=== PATIENT | male | born 1960 | race Caucasian/White ===

== ENCOUNTER 2016-11-26 04:02 | Emergency (ER) | payer OTHER ==
[2016-11-26] MEDS ORDERED: IPRATROPIUM-ALBUTEROL 3 ML NEB ONE (04:09)
[2016-11-26] MEDS ORDERED: KETOROLAC 30 MG/ML 1 ML VIAL ONE (04:09)
[2016-11-26] MEDS ORDERED: DIAZEPAM 5 MG/ML 2 ML SYRINGE ONE (04:09)
[2016-11-26] MEDS ORDERED: LIDOCAINE 5% PATCH TOPICAL ONE (04:09)
[2016-11-26 07:27] LABS: Basophils # (A) 0.1 k/uL (0-0.2); Basophils % (A) 0 %; CH 31.6; CHCM 33.4; Eosinophils # (A) 0.1 k/uL (0-0.7); Eosinophils % (A) 1 %; HCT 45.4 % (39.0-53.0); HDW 2.24; HGB 14.9 gm/dL (13.0-17.5); Luc # (Auto) 0.08; Luc % (Auto) 1; Lymphocytes # (A) 1.7 k/uL (1.0-4.8); Lymphocytes % (A) 10 %; MCH 31.3 pg (25.0-35.0); MCHC 32.9 g/dL (31.0-37.0); Mean Platelet Volume 6.3; Monocytes # (A) 0.7 k/uL (0-1.0); Monocytes % (A) 4 %; Neutrophils # (A) 14.7 k/uL (1.3-7.7); Neutrophils % (A) 84 %; RBC 4.78 m/uL (4.30-5.90); RDW 13.4 % (11.5-15.5); WBC 17.4 k/uL (3.8-10.6); WBC (Perox) 16.52
[2016-11-26 07:29] LABS: Partial Thromboplastin Time 23.5 sec (22.0-30.0); Prothrombin Time 10.2 sec (9.0-12.0)
[2016-11-26 07:35] LABS: ALT 35 U/L (21-72); AST 33 U/L (17-59); Alkaline Phosphatase 63 U/L (38-126); Anion Gap 15 mmol/L; Blood Urea Nitrogen 20 mg/dL (9-20); Calcium 9.5 mg/dL (8.4-10.2); Carbon Dioxide 19 mmol/L (22-30); Chloride 106 mmol/L (98-107); Creatine Kinase 129 U/L (55-170); Glucose 136 mg/dL (74-99); Non-African American GFR(MDRD) >60 (>60 ml/min/1.73 sqM); Potassium 4.4 mmol/L (3.5-5.1); Sodium 140 mmol/L (137-145); Total Bilirubin 1.2 mg/dL (0.2-1.3); Total Protein 7.2 g/dL (6.3-8.2); Troponin I <0.012 ng/mL (0.000-0.034)
[2016-11-26 07:37] LABS: Creatine Kinase MB 6.1 ng/mL (0.0-2.4)
--- NOTE | 2016-11-26 08:24 | XR ---
EXAMINATION TYPE: XR chest 1V portable DATE OF EXAM: 11/26/2016 8:02 AM COMPARISON: 08/19/2014 HISTORY: Right-sided pain TECHNIQUE: Single frontal view of the chest is obtained. FINDINGS: Bilateral subsegmental consolidation and cardiomegaly is seen. Hypertrophic change of the AC joints. Tiny pleural effusion suggested with no pneumothorax. IMPRESSION: 1. Bilateral lower lobe infiltrate and tiny effusion correlate for mild venous congestion.
== END 2016-11-26 06:45 | disposition home or self-care (01) ==
LOC: EC 04:02
DX: R07.89 Other chest pain (principal); R06.02 Shortness of breath; R00.0 Tachycardia, unspecified; R06.82 Tachypnea, not elsewhere classified; Z87.891 Personal history of nicotine dependence; Z88.0 Allergy status to penicillin; Z88.2 Allergy status to sulfonamides
CPT/HCPCS: 36415; 71010; 80053; 82550; 82553; 84484; 85025; 85610; 85730; 93005; 99285

== ENCOUNTER 2016-11-27 13:09 | Inpatient (IN) | payer OTHER ==
[2016-11-27] MEDS ORDERED: ALBUTEROL NEBULIZED 2.5 MG/3 ML INHALATION STA (13:26)
[2016-11-27] MEDS ORDERED: SODIUM CHLORIDE 0.9% 1,000 ML IV STA ×2 (13:26)
[2016-11-27] MEDS ORDERED: LEVOFLOXACIN 750MG-D5W PMX 750 MG in DEXTROSE/WATER 1 150ML.BAG IVPB STA (13:26)
[2016-11-27] MEDS ORDERED: IPRATROPIUM 0.5 MG/2.5 ML NEBU INHALATION STA (13:26)
--- NOTE | 2016-11-27 13:52 | ED ---
General Adult HPI - General Chief complaint: Shortness of Breath Stated complaint: Diff Breathing Time Seen by Provider: 11/27/16 13:26 Source: patient, family, RN notes reviewed, old records reviewed Mode of arrival: wheelchair Limitations: no limitations - History of Present Illness Initial comments: This is a 56-year-old male to the ER for evaluation of severe shortness of breath, severe weakness, severe fever. Severe chest pain. Patient had recent fall and since the fall is having increasing shortness of breath. Patient sounders elevated fever today. Increased cough and congestion. Patient states the chest pain has not changed is not taking anything for chest pain. No recent travel history no sick contacts, no recent hospitalizations. No modifying factors for symptoms. - Related Data Home Medications Medication Instructions Recorded Confirmed Ergocalciferol [Vitamin D2] 50,000 unit PO SA 02/21/16 11/27/16 Etodolac [Lodine] 400 mg PO TID 02/21/16 11/27/16 Hydrochlorothiazide [Hydrodiuril] 12.5 mg PO HS 02/21/16 11/27/16 Lisinopril [Zestril] 20 mg PO HS 02/21/16 11/27/16 Montelukast [Singulair] 10 mg PO HS 02/21/16 11/27/16 Previous Rx's Medication Instructions Recorded Metaxalone [Skelaxin] 800 mg PO TID PRN #20 tab 02/21/16 Allergies Allergy/AdvReac Type Severity Reaction Status Date / Time Penicillins Allergy Unknown Verified 11/27/16 13:39 Childhood Sulfa (Sulfonamide AdvReac Itching Verified 11/27/16 13:39 Antibiotics) Review of Systems ROS Statement: Those systems with pertinent positive or pertinent negative responses have been documented in the HPI. ROS Other: All systems not noted in ROS Statement are negative. Past Medical History Past Medical History: Heart Failure, GERD/Reflux, Hypertension Additional Past Medical History / Comment(s): ARTHRITIS, ALLERGIES History of Any Multi-Drug Resistant Organisms: MRSA MDRO Source:: FOOT Past Surgical History: Orthopedic Surgery Additional Past Surgical History / Comment(s): LEFT KNEE REPLACEMENT Past Psychological History: No Psychological Hx Reported Smoking Status: Never smoker Past Alcohol Use History: Daily Past Drug Use History: None Reported General Exam Limitations: no limitations General appearance: alert, in no apparent distress Head exam: Present: atraumatic, normocephalic, normal inspection Eye exam: Present: normal appearance, PERRL, EOMI. Absent: scleral icterus, conjunctival injection, periorbital swelling ENT exam: Present: normal exam, mucous membranes moist Neck exam: Present: normal inspection. Absent: tenderness, meningismus, lymphadenopathy Respiratory exam: Present: respiratory distress, wheezes, accessory muscle use, decreased breath sounds, prolonged expiratory. Absent: rales, rhonchi, stridor Cardiovascular Exam: Present: normal rhythm, tachycardia, normal heart sounds. Absent: systolic murmur, diastolic murmur, rubs, gallop, clicks GI/Abdominal exam: Present: soft, normal bowel sounds. Absent: distended, tenderness, guarding, rebound, rigid Extremities exam: Present: normal inspection, full ROM, normal capillary refill. Absent: tenderness, pedal edema, joint swelling, calf tenderness Back exam: Present: normal inspection Neurological exam: Present: alert, oriented X3, CN II-XII intact Psychiatric exam: Present: normal affect, normal mood Skin exam: Present: warm, dry, intact, normal color. Absent: rash Course Vital Signs 11/27/16 11/27/16 13:17 14:01 Temperature 100.9 F H Pulse Rate 105 H 107 H Respiratory 24 Rate Blood Pressure 165/84 O2 Sat by Pulse 87 L Oximetry - Reevaluation(s) Reevaluation #1: 11/27/16 14:17 Patient does have pain control as well as symptom control and fever control EKG Findings - EKG Comments: EKG Findings:: EKG shows sinus tachycardia rate of 112, OH 142, QRS 84, QTC 423 Medical Decision Making - Medical Decision Making 56 mallei free versus arthroscopic ingestion positive fever positive pneumonia. Patient will be admitted for IV antibiotics, IV hydration and breathing treatments [id number]. - Radiology Data Radiology results: report reviewed (Chest x-ray positive for pneumonia), image reviewed Critical Care Time Critical Care Time: Yes Total Critical Care Time: 31 Disposition Clinical Impression: Community acquired bacterial pneumonia, Sepsis Disposition: ADMITTED IP TO THIS [facility] Condition: Fair Referrals: Diamond Farrar DO [Primary Care Provider] - 1-2 days
[2016-11-27] MEDS ORDERED: PNEUMONIA PROTOCOL UTILIZED 1 EACH MISC PO PRN (14:14)
[2016-11-27] MEDS ORDERED: PIPERACILLIN-TAZOBACTAM 3.375 GM in DEXTROSE/WATER 1 50ML.BAG IVPB STA (14:14)
[2016-11-27] MEDS ORDERED: ACETAMINOPHEN IV (For NPO) 1,000 MG in EMPTY BAG 1 BAG IVPB STA (14:15)
[2016-11-27] MEDS: SODIUM CHLORIDE 0.9% 1,000 ML IV SCH (14:15)
[2016-11-27] MEDS ORDERED: IBUPROFEN 800 MG TAB PO STA (14:15)
[2016-11-27] MEDS ORDERED: KETOROLAC 30 MG/ML 1 ML VIAL IVP STA (14:15)
[2016-11-27] MEDS ORDERED: MORPHINE SULFATE 4 MG/ML SYRINGE IVP STA (14:15)
[2016-11-27] MEDS ORDERED: IBUPROFEN 600 MG TAB PO PRN (14:15)
[2016-11-27 14:26] LABS: CH 31.5; CHCM 33.8; HCT 43.5 % (39.0-53.0); HDW 2.27; HGB 14.8 gm/dL (13.0-17.5); MCH 31.9 pg (25.0-35.0); MCV 93.8 fL (80.0-100.0); Mean Platelet Volume 6.5; RBC 4.64 m/uL (4.30-5.90); RDW 13.2 % (11.5-15.5); WBC (Perox) 22.96
[2016-11-27 14:27] LABS: INR 1.2 (<1.1); Partial Thromboplastin Time 26.2 sec (22.0-30.0); Prothrombin Time 11.6 sec (9.0-12.0)
[2016-11-27 14:32] LABS: ALT 33 U/L (21-72); AST 19 U/L (17-59); Alkaline Phosphatase 75 U/L (38-126); Anion Gap 12 mmol/L; Blood Urea Nitrogen 26 mg/dL (9-20); Calcium 9.5 mg/dL (8.4-10.2); Carbon Dioxide 23 mmol/L (22-30); Chloride 103 mmol/L (98-107); Glucose 120 mg/dL (74-99); Magnesium 2.2 mg/dL (1.6-2.3); Non-African American GFR(MDRD) >60 (>60 ml/min/1.73 sqM); Potassium 4.3 mmol/L (3.5-5.1); Sodium 138 mmol/L (137-145); Total Bilirubin 1.2 mg/dL (0.2-1.3); Total Protein 6.9 g/dL (6.3-8.2)
[2016-11-27 14:38] LABS: WBC 25.8 k/uL (3.8-10.6)
[2016-11-27 14:43] LABS: Creatine Kinase 96 U/L (55-170)
[2016-11-27 14:55] LABS: Troponin I <0.012 ng/mL (0.000-0.034)
[2016-11-27 14:59] LABS: Add Differential Manual Differential
[2016-11-27 15:01] LABS: Nucleated Red Blood Cells 0 /100 WBC (0-0); Total Cells Counted 100
[2016-11-27 15:02] LABS: RBC Morphology Normal
--- NOTE | 2016-11-27 15:30 | XR ---
EXAMINATION TYPE: XR chest 1V DATE OF EXAM: 11/27/2016 3:26 PM COMPARISON: NONE HISTORY: Pain TECHNIQUE: Single frontal view of the chest is obtained. FINDINGS: Bilateral subsegmental consolidation and cardiomegaly is seen. Hypertrophic change of the AC joints. Tiny pleural effusion suggested with no pneumothorax. IMPRESSION: Bilateral lower lobe infiltrate and tiny effusion correlate for mild venous congestion. Progressive changes involving the right lower lobe.
[2016-11-27] MEDS: IPRATROPIUM-ALBUTEROL 3 ML NEB INHALATION SCH ×2 (16:23→19:26)
[2016-11-27] MEDS ORDERED: FUROSEMIDE 10 MG/ML 4 ML VIAL IV STA (19:45)
--- NOTE | 2016-11-27 20:06 | XR ---
EXAMINATION TYPE: XR chest 1V portable DATE OF EXAM: 11/27/2016 7:56 PM HISTORY: Shortness of breath. COMPARISON: 11/27/2016 TECHNIQUE: Single view of the chest is submitted. FINDINGS: Demonstrated are scattered senescent parenchymal change. Stable basilar infiltrates right greater than left without significant change. The heart is stable. Hilar and mediastinal structures are within normal limits. Degenerative changes are seen of the dorsal spine. IMPRESSION: 1. Stable chest.
[2016-11-27 20:25] LABS: Glucose,Whole Blood 111 mg/dL (75-99)
[2016-11-27 20:30] LABS: Ionized Calcium 4.9 mg/dL (4.5-5.3)
[2016-11-27 20:33] LABS: Basophils # (A) 0.1 k/uL (0-0.2); Basophils % (A) 0 %; CH 31.3; Eosinophils # (A) 0.1 k/uL (0-0.7); Eosinophils % (A) 1 %; HCT 43.8 % (39.0-53.0); HDW 2.25; Luc # (Auto) 0.15; Luc % (Auto) 1; Lymphocytes # (A) 1.3 k/uL (1.0-4.8); Lymphocytes % (A) 5 %; MCH 32.6 pg (25.0-35.0); MCHC 34.2 g/dL (31.0-37.0); MCV 95.2 fL (80.0-100.0); Mean Platelet Volume 6.8; Monocytes # (A) 1.1 k/uL (0-1.0); Monocytes % (A) 4 %; Neutrophils # (A) 21.7 k/uL (1.3-7.7); Neutrophils % (A) 89 %; RDW 13.3 % (11.5-15.5); WBC 24.4 k/uL (3.8-10.6); WBC (Perox) 25.67
[2016-11-27 20:38] LABS: ALT 27 U/L (21-72); AST 22 U/L (17-59); Alkaline Phosphatase 67 U/L (38-126); Amylase 35 U/L (30-110); Anion Gap 11 mmol/L; Blood Urea Nitrogen 28 mg/dL (9-20); Carbon Dioxide 22 mmol/L (22-30); Chloride 103 mmol/L (98-107); Glucose 112 mg/dL (74-99); Magnesium 2.3 mg/dL (1.6-2.3); Non-African American GFR(MDRD) >60 (>60 ml/min/1.73 sqM); Phosphorous 3.4 mg/dL (2.5-4.5); Sodium 136 mmol/L (137-145); Total Protein 6.7 g/dL (6.3-8.2)
[2016-11-27 20:46] LABS: INR 1.1 (<1.1); Partial Thromboplastin Time 28.9 sec (22.0-30.0); Prothrombin Time 11.4 sec (9.0-12.0)
[2016-11-27 21:00] LABS: Troponin I <0.012 ng/mL (0.000-0.034)
[2016-11-27 21:02] LABS: Creatine Kinase MB 5.9 ng/mL (0.0-2.4)
[2016-11-27 23:51] LABS: Appearance,Urine Clear (Clear); Bilirubin,Urine 1+ (Negative); Glucose,Urine (UA) Negative (Negative); Ketones,Urine Negative (Negative); Leukocyte Esterase,Urine Negative (Negative); Nitrite,Urine Negative (Negative); PH, Urine 5.5 (5.0-8.0); Protein,Urine Negative (Negative); Specific Gravity,Urine 1.016 (1.001-1.035); UA Billing (MACRO vs. MICRO) CHEM; Urobilinogen,Urine <2.0 mg/dL (<2.0)
[2016-11-28] MEDS ORDERED: NALOXONE 0.4 MG/ML 1 ML VIAL IV PRN (00:55)
[2016-11-28] MEDS: MORPHINE SULFATE 4 MG/ML SYRINGE IVP PRN ×3 (01:15→09:27)
[2016-11-28] MEDS: PIPERACILLIN-TAZOBACTAM 3.375 GM in DEXTROSE/WATER 1 50ML.BAG IVPB SCH ×3 (02:57→16:44)
[2016-11-28 05:50] LABS: Basophils % (A) 0 %; CH 31.4; CHCM 31.8; Eosinophils # (A) 0.1 k/uL (0-0.7); Eosinophils % (A) 1 %; HCT 43.4 % (39.0-53.0); HDW 2.11; HGB 14.2 gm/dL (13.0-17.5); Luc # (Auto) 0.16; Luc % (Auto) 1; Lymphocytes # (A) 1.3 k/uL (1.0-4.8); Lymphocytes % (A) 6 %; MCH 32.5 pg (25.0-35.0); MCHC 32.8 g/dL (31.0-37.0); MCV 99.2 fL (80.0-100.0); Mean Platelet Volume 6.5; Monocytes # (A) 0.9 k/uL (0-1.0); Monocytes % (A) 4 %; Neutrophils # (A) 19.6 k/uL (1.3-7.7); Neutrophils % (A) 89 %; RBC 4.38 m/uL (4.30-5.90); RDW 13.6 % (11.5-15.5); WBC (Perox) 22.32
[2016-11-28 06:05] LABS: ABG HCO3 23 mmol/L (21-25); ABG PCO2 40 mmHg (35-45); ABG PH 7.38 (7.35-7.45); ABG PO2 84 mmHg (83-108)
[2016-11-28 06:06] LABS: ABG Base Excess -1.4 mmol/L; ABG TCO2 24 mmol/L (19-24)
[2016-11-28 06:08] LABS: Anion Gap 8 mmol/L; Blood Urea Nitrogen 23 mg/dL (9-20); Calcium 8.9 mg/dL (8.4-10.2); Carbon Dioxide 28 mmol/L (22-30); Chloride 100 mmol/L (98-107); Glucose 109 mg/dL (74-99); Magnesium 2.4 mg/dL (1.6-2.3); Non-African American GFR(MDRD) >60 (>60 ml/min/1.73 sqM); Phosphorous 3.1 mg/dL (2.5-4.5); Potassium 4.5 mmol/L (3.5-5.1); Sodium 136 mmol/L (137-145)
[2016-11-28] MEDS: IPRATROPIUM-ALBUTEROL 3 ML NEB INHALATION SCH ×4 (07:26→20:01)
--- NOTE | 2016-11-28 08:03 | XR ---
EXAMINATION TYPE: XR chest 1V DATE OF EXAM: 11/28/2016 5:55 AM COMPARISON: 11/27/2016 and 11/26/2016 HISTORY: 56-year-old male pneumonia TECHNIQUE: Single frontal view of the chest is obtained. FINDINGS: Right heart margin obscured by adjacent pleural parenchymal disease. Patient slightly more lordotic i n positioning. This may account for the increased density in the right paratracheal region. However, there is also increasing right basilar opacity now extending up to the midlung level and continued pa tchy left basilar opacity. IMPRESSION: 1. Lordotic positioning may account for the increased density in the right paratracheal region. If wo rsening chest pain, contrast-enhanced CT may be warranted to exclude acute vascular pathology. 2. Worsening consolidation and pleural effusion on the right with density now extending up to the mid lung level. Continued mild patchy infiltrate at the left base. Findings given to nurse Raza in 6 ICU at 7:50 AM.
[2016-11-28] MEDS: ACETAMINOPHEN TAB 500 MG TAB PO PRN (08:57)
[2016-11-28] MEDS: HYDROCHLOROTHIAZIDE 12.5 MG CAP PO SCH (09:00)
[2016-11-28] MEDS: LISINOPRIL 20 MG TAB PO SCH (09:00)
[2016-11-28] MEDS: PANTOPRAZOLE 40 MG/10 ML VIAL IV SCH (09:01)
[2016-11-28] MEDS: ENOXAPARIN 40 MG/0.4 ML SYRINGE SQ SCH (09:01)
[2016-11-28] MEDS ORDERED: IV VANCOMYCIN PER PHARMACY 1 EACH MISC MISCELLANE PRN (09:30)
[2016-11-28] MEDS ORDERED: RX INFO: IV CONTRAST WAS GIVEN 1 EACH MISC MISCELLANE PRN (09:31)
--- NOTE | 2016-11-28 09:33 | P.CNPUL ---
History of Present Illness Consult date: 11/28/16 Reason for consult: pneumonia History of present illness: 56-year-old obese male patient, who got moved to the intensive care unit yesterday because of worsening shortness of breath and bilateral pneumonia. This patient was in a good state of health until approximately 10 days ago when he developed symptoms of acute bronchitis. He contacted his primary care physician, Dr. Farrar, we'll give this patient a Z-Avery and a Medrol Dosepak. The patient also has albuterol solution for nebulizer as his has bronchial asthma. He did some albuterol treatment and he felt better. He completed his antibiotic course 6 days ago. Around 3 days ago he started developing severe acute pleuritic right-sided chest pain. The pain was severe to the point where the patient was unable to breathe 10. He felt hot and cold and there was no documented temperature. He became progressively short of breath and for that reason he was brought into the hospital. I reviewed a series of chest x-rays that were done since admission. There is obvious progression to the point where the patient has developed severe consolidation of the right lower lobe in addition to some infiltration of the left lower lobe and possibly a pleural effusion on the right is suspected. Empyema cannot be completely ruled out. The lung volumes are small. The patient has no hemoptysis. He is coughing out minimal amount of sputum. His white cell count is elevated. Overnight he was placed on a BiPAP at a pressure of 10 over 5 and currently is on 100% nonrebreather facemask with an oxygen saturation of 95%. He has no change in mental status. No previous pneumonias. He has remote history of MRSA infection in his right foot which got treated. No aspiration. No travel history. No smoking. No 70 chronic lung disease. He has features of obstructive sleep apnea however this has not been demonstrated or studies further. He is currently on a combination of Zosyn and Levaquin. Review of Systems All systems: negative Constitutional: Denies chills, Denies fever Eyes: denies blurred vision, denies pain Ears, nose, mouth and throat: Denies headache, Denies sore throat Cardiovascular: Reports chest pain, Reports dyspnea on exertion, Denies shortness of breath Respiratory: Reports cough, Reports dyspnea, Reports pleurisy Gastrointestinal: Denies abdominal pain, Denies diarrhea, Denies nausea, Denies vomiting Musculoskeletal: Denies myalgias Integumentary: Denies pruritus, Denies rash Neurological: Denies numbness, Denies weakness Psychiatric: Denies anxiety, Denies depression Endocrine: Denies fatigue, Denies weight change Past Medical History Past Medical History: GERD/Reflux, Hypertension Additional Past Medical History / Comment(s): Morbid obesity, environmental ALLERGIES, degenerative arthritis, hypertension History of Any Multi-Drug Resistant Organisms: MRSA Date of last positivie culture/infection: 2013(when at [facility] [place] [facility]) MDRO Source:: rt foot 2nd toe Past Surgical History: Orthopedic Surgery, Tonsillectomy Additional Past Surgical History / Comment(s): LEFT KNEE REPLACEMENT, lt eye cataract sx, rt shoulder sx d/t separation Past Anesthesia/Blood Transfusion Reactions: No Reported Reaction Past Psychological History: No Psychological Hx Reported Smoking Status: Never smoker Past Alcohol Use History: Daily Additional Past Alcohol Use History / Comment(s): pt stated usually drinks 4 beer a day but for last 2 weeks since tx for bronchitis less than that Past Drug Use History: Marijuana Additional Drug Use History / Comment(s): pt smoked marijuana in his 20's - Past Family History Mother Family Medical History: Hypertension Father Family Medical History: Cancer, Diabetes Mellitus, Myocardial Infarction ([place]) Additional Family Medical History / Comment(s): stomach cancer, x4 mi's Medications and Allergies Home Medications Medication Instructions Recorded Confirmed Type Ergocalciferol [Vitamin D2] 50,000 unit PO SA 02/21/16 11/27/16 History Etodolac [Lodine] 400 mg PO TID 02/21/16 11/27/16 History Hydrochlorothiazide [Hydrodiuril] 12.5 mg PO HS 02/21/16 11/27/16 History Lisinopril [Zestril] 20 mg PO HS 02/21/16 11/27/16 History Montelukast [Singulair] 10 mg PO HS 02/21/16 11/27/16 History Allergies Allergy/AdvReac Type Severity Reaction Status Date / Time Penicillins Allergy Unknown Verified 11/27/16 13:39 Childhood Sulfa (Sulfonamide AdvReac Itching Verified 11/27/16 13:39 Antibiotics) Physical Exam Vitals: Vital Signs Temp Pulse Pulse Resp BP BP Pulse Ox 11/28/16 08:00 98.7 F 107 H 28 H 162/88 95 11/28/16 07:31 94 L 11/28/16 07:00 97 26 H 120/70 96 11/28/16 06:00 120 H 47 H 189/92 97 11/28/16 05:00 76 27 H 133/74 97 11/28/16 04:00 99 F 70 103 H 27 H 134/79 99 11/28/16 03:00 76 24 126/75 98 11/28/16 02:00 79 26 H 126/72 98 11/28/16 01:00 81 31 H 124/74 99 11/28/16 00:00 98 F 75 103 H 26 H 120/65 99 11/27/16 23:00 78 26 H 141/81 97 11/27/16 22:30 91 39 H 141/81 99 11/27/16 21:30 101 H 43 H 125/77 11/27/16 21:20 103 H 44 H 140/83 11/27/16 21:10 103 H 42 H 140/83 11/27/16 21:00 96 37 H 140/83 99 11/27/16 20:50 96 37 H 99/59 98 11/27/16 20:40 90 25 H 116/75 99 11/27/16 20:30 99 40 H 116/75 98 11/27/16 20:20 98.5 F 97 41 H 144/88 98 11/27/16 19:56 103 H 26 H 129/79 96 11/27/16 19:40 114 H 101 H 40 H 181/91 95 11/27/16 19:26 114 H 11/27/16 19:25 97.9 F 88 32 H 151/76 93 L 11/27/16 16:08 98.3 F 98 18 112/58 91 L 11/27/16 15:04 101.9 F H 112 H 20 120/59 90 L 11/27/16 14:40 115 H 11/27/16 14:15 112 H 11/27/16 14:01 107 H 11/27/16 13:17 100.9 F H 105 H 24 165/84 87 L Intake and Output 11/27/16 11/28/16 11/28/16 22:59 06:59 14:59 Intake Total 60 160 40 Output Total 600 845 120 Balance -883 -486 -80 Intake: IV 60 160 40 Sodium Chloride 0.9% 1, 60 160 40 000 ml @ 20 mls/hr IV . Q24H [facility] Rx#:[id number] Output: Urine 600 845 120 Other: Voiding Method Urinal Indwelling Catheter Weight 170.7 kg Patient Weight 11/29/16 06:59 Weight 170.7 kg Morbid obesity, and mild degree of respiratory distress, not using accessory muscles of breathing.Head exam was generally normal. There was no scleral icterus or corneal arcus. Mucous membranes were moist.Neck was supple and without jugular venous distension, thyromegaly, or carotid bruits. Carotids were easily palpable bilaterally. There was no adenopathy. There is significant crowding of the posterior oropharynx with a Mallampati class IV. Lung sounds are markedly diminished in lung bases bilaterally especially in the right lung base and the patient has limited ability to breathe due to his severe pleuritic chest pain. No wheezes.Cardiac exam revealed the PMI to be normally situated and sized. The rhythm was regular and no extrasystoles were noted during several minutes of auscultation. The first and second heart sounds were normal and physiologic splitting of the second heart sound was noted. There were no murmurs, rubs, clicks, or gallops.Abdominal exam revealed normal bowel sounds. The abdomen was soft, non-tender, and without masses, organomegaly , or appreciable enlargement of the abdominal aorta.Examination of the extremities revealed easily palpable radial, femoral and pedal pulses. There was no cyanosis, clubbing or edema. Results - Laboratory Findings CBC and BMP: 11/28/16 05:08 11/28/16 05:08 ABG ABG pH 7.38 (7.35-7.45) 11/28/16 05:59 ABG pCO2 40 mmHg (35-45) 11/28/16 05:59 ABG pO2 84 mmHg (83-108) 11/28/16 05:59 ABG O2 Saturation 96.0 % (94-97) 11/28/16 05:59 PT/INR, D-dimer PT 11.4 sec (9.0-12.0) 11/27/16 20:18 INR 1.1 (<1.1) 11/27/16 20:18 D-Dimer 0.80 mg/L FEU (<0.60) H 11/27/16 20:18 Abnormal lab findings: Abnormal Labs 11/27/16 11/27/16 11/27/16 14:06 14:06 14:06 WBC 25.8 H* Neutrophils # Neutrophils # (Manual) 23.2 H Monocytes # D-Dimer Sodium BUN 26 H Glucose 120 H POC Glucose (mg/dL) Magnesium CK-MB (CK-2) 7.0 H* Urine Bilirubin 11/27/16 11/27/16 11/27/16 20:04 20:18 20:18 WBC 24.4 H Neutrophils # 21.7 H Neutrophils # (Manual) Monocytes # 1.1 H D-Dimer 0.80 H Sodium BUN Glucose POC Glucose (mg/dL) 111 H Magnesium CK-MB (CK-2) Urine Bilirubin 11/27/16 11/27/16 11/27/16 20:18 20:18 23:00 WBC Neutrophils # Neutrophils # (Manual) Monocytes # D-Dimer Sodium 136 L BUN 28 H Glucose 112 H POC Glucose (mg/dL) Magnesium CK-MB (CK-2) 5.9 H* Urine Bilirubin 1+ H 11/28/16 11/28/16 05:08 05:08 WBC 22.0 H Neutrophils # 19.6 H Neutrophils # (Manual) Monocytes # D-Dimer Sodium 136 L BUN 23 H Glucose 109 H POC Glucose (mg/dL) Magnesium 2.4 H CK-MB (CK-2) Urine Bilirubin - Diagnostic Findings Chest x-ray: image reviewed Assessment and Plan Plan: Assessment 1 acute bilateral pneumonia with interval progression and worsening in the consolidation of the right lower lobe with possibly development of a right lower lobe pleural effusion and there is a high concern for an underlying empyema of the right lung. Pulmonary embolism/pulmonary infarction is felt to be less likely 2 acute pleuritic right-sided chest pain secondary to above 3 acute hypoxic respiratory failure currently on 100% nonrebreather facemask 4 acute BiPAP dependent respiratory failure, and the patient was taken off the BiPAP this morning 5 leukocytosis 6 morbid obesity 7 hypertension 8 degenerative arthritis 9 bronchitis that was treated approximately a week ago on outpatient basis with a combination of Zithromax and prednisone burst taper Plan Keep the patient intensive care unit. Keep the 100% nonrebreather facemask. Proceed with a CT of the chest to assess for any complicated right-sided pleural effusion/empyema. At the same time we'll look at the patient's vasculature and rule out pulmonary embolism. Continue Zosyn and Levaquin and add vancomycin. Sputum Gram stain and culture. Increase his IV fluids to 100 mL an hour of normal saline. Use Dilaudid 1 mg every 3 hours for pain control. Provide the patient incentive spirometer. Heparin subcu for DVT prophylaxis. Blood cultures. Legionella urine antigen. We'll continue to follow make further recommendations based on his progress. His condition is critical at this point. Time with Patient: Greater than 30
[2016-11-28] MEDS ORDERED: VANCOMYCIN 2,500 MG in SODIUM CHLORIDE 0.9% 500 ML IVPB ONE (10:00)
--- NOTE | 2016-11-28 11:38 | CT ---
EXAMINATION TYPE: CT chest angio for PE DATE OF EXAM: 11/28/2016 11:20 AM COMPARISON: Chest x-ray earlier today. HISTORY: Short of breath, right lung pneumonia/empyema CT DLP: 1241.3 mGycm. Automated Exposure Control for Dose Reduction was Utilized. CONTRAST: CTA scan of the thorax is performed with IV Contrast, patient injected with 100 mL of Omnipaque 350, pulmonary embolism protocol. MIP Images are created on CT scanner and reviewed. FINDINGS: LUNGS: There is moderate right-sided pleural fluid collection which does not completely layer, and up per lung medial component near axial image 41 measuring 5.5 x 3.1 cm is noted. Hounsfield units avera ge near 15. There is compressive atelectasis in the right lower lobe and mid lung. Exam is suboptimal as is degraded by rest type motion artifact. There is some linear atelectasis in the left lung base otherwise left lung is essentially clear. No pneumothorax is seen bilaterally. MEDIASTINUM: There is markedly suboptimal bolus with most dense contrast in the SVC and fairly equal poor contrast and right and left heart systems. There is no large saddle pulmonary embolism, smaller lobar as well as segmental and subsegmental PE cannot be entirely excluded on this exam as there is diffuse heterogeneity present. There are no greater than 1 cm hilar or mediastinal lymph nodes. No pericardial effusion is seen. Heart size is upper limits of normal. There is tortuous course to the e sophagus with small hiatal hernia. OTHER: Multilevel spurring in the spine is present. IMPRESSION: 1. Suboptimal study, no large saddle central pulmonary embolism, smaller PE cannot be excluded on thi s exam. 2. Fairly moderate size nonsimple right-sided pleural fusion or fluid collection. There is right lowe r lung atelectasis and/or consolidation. Accounting for abnormal right paratracheal density is locula miguel or nonsimple right-sided pleural fluid.
[2016-11-28] MEDS: SODIUM CHLORIDE 0.9% 1,000 ML IV SCH ×3 (11:40→15:50)
[2016-11-28 12:11] LABS: Glucose,Whole Blood 126 mg/dL (75-99)
[2016-11-28] MEDS: INSULIN LISPRO (humaLOG) 300 UNIT/3 ML VIAL SQ SCH ×2 (12:11→17:03)
--- NOTE | 2016-11-28 12:12 | P.HPIM ---
History of Present Illness H&P Date: 11/28/16 Chief Complaint: Shortness of breath right-sided chest pain This is a 56-year-old male, patient of [facility]. He has a known past medical history of hypertension, GERD and morbid obesity. Patient was treated about a week ago for bronchitis as an outpatient he received Z-Avery and prednisone. He reports some improvement in his cough and shortness of breath. However, his symptoms then began to worsen. He used his 's nebulizer machine without really any improvement. He tried to go back to work incontinent because of the shortness of breath and cough. Then yesterday after grocery shopping and lifting up the garage door to bring groceries and he started having significant right sided chest and rib pain. Patient reports no injury to the chest wall. He denies hurting himself while lifting the grudge door. He has been feverish with a temp of 101.9 tachycardic with a heart rate of 118 and white count was 24.4 on admission. He was admitted to the ICU for pneumonia with sepsis. Chest x-ray shows an increased density in the right paratracheal region and worsening consolidation and pleural effusion on the right with density now extending up the midlung level. Continued mild patchy infiltrate at the left base. Pulmonary service has been consulted and they ordered a CTA of the chest for concerns of pneumonia and empyema. CT of the chest shows no large saddle central pulmonary embolism but small EEG cannot be excluded on this exam. Shows a fairly moderate size non-simple right-sided pleural effusion or fluid collection. There is a right lower lung atelectasis and/or consolidation. Accounting for abnormal right paratracheal density is loculated or non-simple right-sided pleural fluid. Vascular surgery has been consulted as well as infectious disease. Patient was placed on IV antibiotics Levaquin, Zosyn and vancomycin. Patient denies any nausea or vomiting. He denies any urinary symptoms. Last bowel movement was about 3 days ago. He denies any abdominal pain. Reports that his appetite has been decreased. Review of Systems Please refer to HPI otherwise unremarkable Past Medical History Past Medical History: GERD/Reflux, Hypertension Additional Past Medical History / Comment(s): Morbid obesity, environmental ALLERGIES, degenerative arthritis, hypertension History of Any Multi-Drug Resistant Organisms: MRSA Date of last positivie culture/infection: 2013(when at [facility] pt) MDRO Source:: rt foot 2nd toe Past Surgical History: Orthopedic Surgery, Tonsillectomy Additional Past Surgical History / Comment(s): LEFT KNEE REPLACEMENT, lt eye cataract sx, rt shoulder sx d/t separation Past Anesthesia/Blood Transfusion Reactions: No Reported Reaction Past Psychological History: No Psychological Hx Reported Smoking Status: Never smoker Past Alcohol Use History: Daily Additional Past Alcohol Use History / Comment(s): pt stated usually drinks 4 beer a day but for last 2 weeks since tx for bronchitis less than that Past Drug Use History: Marijuana Additional Drug Use History / Comment(s): pt smoked marijuana in his 20's - Past Family History Mother Family Medical History: Hypertension Father Family Medical History: Cancer, Diabetes Mellitus, Myocardial Infarction ([place]) Additional Family Medical History / Comment(s): stomach cancer, x4 mi's Medications and Allergies Home Medications Medication Instructions Recorded Confirmed Type Ergocalciferol [Vitamin D2] 50,000 unit PO SA 02/21/16 11/27/16 History Etodolac [Lodine] 400 mg PO TID 02/21/16 11/27/16 History Hydrochlorothiazide [Hydrodiuril] 12.5 mg PO HS 02/21/16 11/27/16 History Lisinopril [Zestril] 20 mg PO HS 02/21/16 11/27/16 History Montelukast [Singulair] 10 mg PO HS 02/21/16 11/27/16 History Allergies Allergy/AdvReac Type Severity Reaction Status Date / Time Penicillins Allergy Unknown Verified 11/27/16 13:39 Childhood Sulfa (Sulfonamide AdvReac Itching Verified 11/27/16 13:39 Antibiotics) Physical Exam Vitals: Vital Signs Temp Pulse Pulse Resp BP BP Pulse Ox 11/28/16 11:00 98 24 115/59 96 11/28/16 10:00 97 24 137/74 96 11/28/16 09:00 98 24 147/72 96 11/28/16 08:00 98.7 F 107 H 28 H 162/88 95 11/28/16 07:31 94 L 11/28/16 07:00 97 26 H 120/70 96 11/28/16 06:00 120 H 47 H 189/92 97 11/28/16 05:00 76 27 H 133/74 97 11/28/16 04:00 99 F 70 103 H 27 H 134/79 99 11/28/16 03:00 76 24 126/75 98 11/28/16 02:00 79 26 H 126/72 98 11/28/16 01:00 81 31 H 124/74 99 11/28/16 00:00 98 F 75 103 H 26 H 120/65 99 11/27/16 23:00 78 26 H 141/81 97 11/27/16 22:30 91 39 H 141/81 99 11/27/16 21:30 101 H 43 H 125/77 11/27/16 21:20 103 H 44 H 140/83 11/27/16 21:10 103 H 42 H 140/83 11/27/16 21:00 96 37 H 140/83 99 11/27/16 20:50 96 37 H 99/59 98 11/27/16 20:40 90 25 H 116/75 99 11/27/16 20:30 99 40 H 116/75 98 11/27/16 20:20 98.5 F 97 41 H 144/88 98 11/27/16 19:56 103 H 26 H 129/79 96 11/27/16 19:40 114 H 101 H 40 H 181/91 95 11/27/16 19:26 114 H 11/27/16 19:25 97.9 F 88 32 H 151/76 93 L 11/27/16 16:08 98.3 F 98 18 112/58 91 L 11/27/16 15:04 101.9 F H 112 H 20 120/59 90 L 11/27/16 14:40 115 H 11/27/16 14:15 112 H 11/27/16 14:01 107 H 11/27/16 13:17 100.9 F H 105 H 24 165/84 87 L Intake and Output 11/27/16 11/28/16 11/28/16 22:59 06:59 14:59 Intake Total 60 160 877.5 Output Total 600 845 270 Balance -540 -685 607.5 Intake: IV 60 160 340 Sodium Chloride 0.9% 1, 60 160 340 000 ml @ 100 mls/hr IV . Q10H [facility] Rx#:[id number] Intake, IV Titration 537.5 Amount Piperacillin-Tazobactam 3 37.5 .375 gm In Dextrose/Water 1 50ml.bag @ 12.5 mls/hr IVPB Q8HR [facility] Rx#: [id number] Vancomycin 2,250 mg In 500 Sodium Chloride 0.9% 500 ml @ 167 mls/hr IVPB Q12HR [facility] Rx#:[id number] Output: Urine 600 845 270 Other: Voiding Method Urinal Indwelling Catheter Weight 170.7 kg Patient Weight 11/29/16 06:59 Weight 170.7 kg Head normocephalic Neck supple Lungs diminished bilaterally no wheezing or crackles. Currently has nonrebreather mask. Short of breath with talking. Chest wall tenderness on the right side with palpation Heart regular rate and rhythm S1-S2, no rub or gallop Abdomen is soft nontender nondistended positive bowel sounds no hepatosplenomegaly Extremities no edema Neuro alert and orientated to 3 Results CBC & Chem 7: 11/28/16 05:08 11/28/16 05:08 Labs: Abnormal Lab Results - Last 24 Hours (Table) 11/27/16 11/27/16 11/27/16 Range/Units 14:06 14:06 14:06 WBC 25.8 H* (3.8-10.6) k/uL Neutrophils # (1.3-7.7) k/uL Neutrophils # (Manual) 23.2 H (1.3-7.7) k/uL Monocytes # (0-1.0) k/uL D-Dimer (<0.60) mg/L FEU Sodium (137-145) mmol/L BUN 26 H (9-20) mg/dL Glucose 120 H (74-99) mg/dL POC Glucose (mg/dL) (75-99) mg/dL Magnesium (1.6-2.3) mg/dL CK-MB (CK-2) 7.0 H* (0.0-2.4) ng/mL Urine Bilirubin (Negative) 11/27/16 11/27/16 11/27/16 Range/Units 20:04 20:18 20:18 WBC 24.4 H (3.8-10.6) k/uL Neutrophils # 21.7 H (1.3-7.7) k/uL Neutrophils # (Manual) (1.3-7.7) k/uL Monocytes # 1.1 H (0-1.0) k/uL D-Dimer 0.80 H (<0.60) mg/L FEU Sodium (137-145) mmol/L BUN (9-20) mg/dL Glucose (74-99) mg/dL POC Glucose (mg/dL) 111 H (75-99) mg/dL Magnesium (1.6-2.3) mg/dL CK-MB (CK-2) (0.0-2.4) ng/mL Urine Bilirubin (Negative) 11/27/16 11/27/16 11/27/16 Range/Units 20:18 20:18 23:00 WBC (3.8-10.6) k/uL Neutrophils # (1.3-7.7) k/uL Neutrophils # (Manual) (1.3-7.7) k/uL Monocytes # (0-1.0) k/uL D-Dimer (<0.60) mg/L FEU Sodium 136 L (137-145) mmol/L BUN 28 H (9-20) mg/dL Glucose 112 H (74-99) mg/dL POC Glucose (mg/dL) (75-99) mg/dL Magnesium (1.6-2.3) mg/dL CK-MB (CK-2) 5.9 H* (0.0-2.4) ng/mL Urine Bilirubin 1+ H (Negative) 11/28/16 11/28/16 Range/Units 05:08 05:08 WBC 22.0 H (3.8-10.6) k/uL Neutrophils # 19.6 H (1.3-7.7) k/uL Neutrophils # (Manual) (1.3-7.7) k/uL Monocytes # (0-1.0) k/uL D-Dimer (<0.60) mg/L FEU Sodium 136 L (137-145) mmol/L BUN 23 H (9-20) mg/dL Glucose 109 H (74-99) mg/dL POC Glucose (mg/dL) (75-99) mg/dL Magnesium 2.4 H (1.6-2.3) mg/dL CK-MB (CK-2) (0.0-2.4) ng/mL Urine Bilirubin (Negative) Thrombosis Risk Factor Assmnt - Choose All That Apply Any of the Below Risk Factors Present?: Yes Each Factor Represents 1 point: Age 41-60 years, Obesity (BMI >25), Sepsis (< 1month), Serious lung disease incl. pneumonia (< 1month) Other Risk Factors: No Other congenital or acquired thrombophilia - If yes, enter type in comment: No Thrombosis Risk Factor Assessment Total Risk Factor Score: 4 Thrombosis Risk Factor Assessment Level: Moderate Risk Assessment and Plan Plan: 1. Acute bilateral pneumonia: Chest x-ray from this morning shows worsening consolidation and pleural effusion. Case was discussed with pulmonary service. There are concerns about a possible empyema. Computed tomography scan shows no large saddle central PE. Does show a fairly moderate size non-simple right- sided pleural effusion or fluid collection. With a right lower lung atelectasis or consolidation. And right paratracheal density is loculated or non-simple right-sided pleural effusion fluid. Both vascular surgery and infectious disease have been consulted. Blood cultures have been ordered. Continue with antibiotics including Levaquin and Zosyn and vancomycin 2. Pneumonia with sepsis: Patient was tachycardic, leukocytosis, and febrile on admission. Continue with antibiotics and IV fluids 3. Acute pleuritic right-sided chest pain likely related to the pneumonia. Continue current pain medication 4. Acute hypoxic respiratory failure secondary to pneumonia or possible empyema. Continue to monitor patient did require BiPAP in the morning. Currently on a nonrebreather 5. Morbid obesity 6. Essential hypertension with pressures are stable 7. Degenerative disc disease 8. Bronchitis that was treated about a week ago with Z-Avery and prednisone taper DVT prophylaxis Lovenox and GI prophylaxis Protonix Time with Patient: Greater than 30 (Greater than 50% of the total time spent in counseling and coordination of care.I performed an examination of the patient and discussed their management with the physician Telecommunication Tower Technician. I have reviewed the Physician Telecommunication Tower Technician's notes and agree with the documented findings and plan of care)
[2016-11-28] MEDS: methylPREDNISolone SOD SUCCI 125 MG/2 ML VIAL IV SCH ×2 (12:41→17:05)
[2016-11-28 13:30] LABS: Hemoglobin A1C 5.9 % (4.2-6.1)
[2016-11-28] MEDS: HYDROmorphone 1 MG/ML 1 ML SYRINGE IVP PRN ×2 (14:07→20:22)
--- NOTE | 2016-11-28 14:45 | P.GSCN ---
<Alma Tinoco - Last Filed: 11/28/16 14:45> History of Present Illness Consult date: 11/28/16 Reason for Consult: Loculated fluid in the right lung. Requesting physician: Neri Moscoso History of present illness: This 56-year-old obese patient with a history of hypertension, GERD, arthritis, and daily EtOH use presented to the emergency room with shortness of breath, weakness, subjective fever, and severe right-sided chest pain. Apparently he had symptoms suggestive of bronchitis per his primary care physician 10 days ago and was prescribed a Z-Avery and steroids. After finishing his antibiotics and steroids, he developed severe right-sided pleuritic chest pain as well as increased shortness of breath. He presented to the emergency room and was diagnosed as having community-acquired pneumonia. He was started on Zosyn and Levaquin. He has had serial EKGs as well as a CTA of the chest which has demonstrated an increasing right pleural effusion. His respiratory status became severe enough that he required BiPAP and was transferred to the ICU. Cardiothoracic surgery was consulted by Dr. Moscoso for possible surgical intervention related to the patient's pleural effusion. Review of Systems 14 point review of systems was completed and was negative except as noted. - Constitutional Reports as per HPI - Cardiovascular Reports as per HPI, Reports leg edema - Respiratory Reports as per HPI Past Medical History Past Medical History: GERD/Reflux, Hypertension Additional Past Medical History / Comment(s): Morbid obesity, environmental ALLERGIES, degenerative arthritis, hypertension History of Any Multi-Drug Resistant Organisms: MRSA Year Discovered:: 2013(when at [facility]per pt) MDRO Source:: rt foot 2nd toe Past Surgical History: Orthopedic Surgery, Tonsillectomy Additional Past Surgical History / Comment(s): LEFT KNEE REPLACEMENT, lt eye cataract sx, rt shoulder sx d/t separation Past Anesthesia/Blood Transfusion Reactions: No Reported Reaction Past Psychological History: No Psychological Hx Reported Smoking Status: Never smoker Past Alcohol Use History: Daily Additional Past Alcohol Use History / Comment(s): pt stated usually drinks 4 beer a day but for last 2 weeks since tx for bronchitis less than that Past Drug Use History: Marijuana Additional Drug Use History / Comment(s): pt smoked marijuana in his 20's - Past Family History Mother Family Medical History: Hypertension Father Family Medical History: Cancer, Diabetes Mellitus, Myocardial Infarction ([place]) Additional Family Medical History / Comment(s): stomach cancer, x4 mi's Medications and Allergies Home Medications Medication Instructions Recorded Confirmed Type Ergocalciferol [Vitamin D2] 50,000 unit PO SA 02/21/16 11/27/16 History Etodolac [Lodine] 400 mg PO TID 02/21/16 11/27/16 History Hydrochlorothiazide [Hydrodiuril] 12.5 mg PO HS 02/21/16 11/27/16 History Lisinopril [Zestril] 20 mg PO HS 02/21/16 11/27/16 History Montelukast [Singulair] 10 mg PO HS 02/21/16 11/27/16 History Allergies Allergy/AdvReac Type Severity Reaction Status Date / Time Penicillins Allergy Unknown Verified 11/27/16 13:39 Childhood Sulfa (Sulfonamide AdvReac Itching Verified 11/27/16 13:39 Antibiotics) Surgical - Exam Vital Signs Temp Pulse Resp BP Pulse Ox 100.9 F H 105 H 24 165/84 87 L 11/27/16 13:17 11/27/16 13:17 11/27/16 13:17 11/27/16 13:17 11/27/16 13:17 - General well developed, well nourished, obese - Eyes PERRL, normal ocular movement - ENT no hearing loss - Respiratory Lung sounds very diminished bilaterally. Respirations even, slightly tachypneic. Currently on 100% nonrebreather with oxygen saturation 96%. - Cardiovascular S1, S2 present. Regular rate and rhythm, normal sinus rhythm with occasional PVCs on telemetry. 2+ bilateral lower extremity edema present. - Abdomen Abdomen: soft, non tender, bowel sounds - Genitourinary [place] present draining clear, yellow urine. - Rectum Deferred - Integumentary no rash - Neurologic normal coordination, normal sensation - Psychiatric oriented to time, oriented to person, oriented to place, speech is normal, memory intact Results - Labs 11/28/16 05:08 11/28/16 05:08 Abnormal Lab Results - Last 24 Hours (Table) 11/27/16 11/27/16 11/27/16 Range/Units 14:06 14:06 14:06 WBC 25.8 H* (3.8-10.6) k/uL Neutrophils # (1.3-7.7) k/uL Neutrophils # (Manual) 23.2 H (1.3-7.7) k/uL Monocytes # (0-1.0) k/uL D-Dimer (<0.60) mg/L FEU Sodium (137-145) mmol/L BUN 26 H (9-20) mg/dL Glucose 120 H (74-99) mg/dL POC Glucose (mg/dL) (75-99) mg/dL Magnesium (1.6-2.3) mg/dL CK-MB (CK-2) 7.0 H* (0.0-2.4) ng/mL Urine Bilirubin (Negative) 11/27/16 11/27/16 11/27/16 Range/Units 20:04 20:18 20:18 WBC 24.4 H (3.8-10.6) k/uL Neutrophils # 21.7 H (1.3-7.7) k/uL Neutrophils # (Manual) (1.3-7.7) k/uL Monocytes # 1.1 H (0-1.0) k/uL D-Dimer 0.80 H (<0.60) mg/L FEU Sodium (137-145) mmol/L BUN (9-20) mg/dL Glucose (74-99) mg/dL POC Glucose (mg/dL) 111 H (75-99) mg/dL Magnesium (1.6-2.3) mg/dL CK-MB (CK-2) (0.0-2.4) ng/mL Urine Bilirubin (Negative) 11/27/16 11/27/16 11/27/16 Range/Units 20:18 20:18 23:00 WBC (3.8-10.6) k/uL Neutrophils # (1.3-7.7) k/uL Neutrophils # (Manual) (1.3-7.7) k/uL Monocytes # (0-1.0) k/uL D-Dimer (<0.60) mg/L FEU Sodium 136 L (137-145) mmol/L BUN 28 H (9-20) mg/dL Glucose 112 H (74-99) mg/dL POC Glucose (mg/dL) (75-99) mg/dL Magnesium (1.6-2.3) mg/dL CK-MB (CK-2) 5.9 H* (0.0-2.4) ng/mL Urine Bilirubin 1+ H (Negative) 11/28/16 11/28/16 11/28/16 Range/Units 05:08 05:08 12:10 WBC 22.0 H (3.8-10.6) k/uL Neutrophils # 19.6 H (1.3-7.7) k/uL Neutrophils # (Manual) (1.3-7.7) k/uL Monocytes # (0-1.0) k/uL D-Dimer (<0.60) mg/L FEU Sodium 136 L (137-145) mmol/L BUN 23 H (9-20) mg/dL Glucose 109 H (74-99) mg/dL POC Glucose (mg/dL) 126 H (75-99) mg/dL Magnesium 2.4 H (1.6-2.3) mg/dL CK-MB (CK-2) (0.0-2.4) ng/mL Urine Bilirubin (Negative) Diabetes panel 11/27/16 11/27/16 11/28/16 Range/Units 14:06 20:18 05:08 Sodium 138 136 L 136 L (137-145) mmol/L Potassium 4.3 4.0 4.5 (3.5-5.1) mmol/L Chloride 103 103 100 (98-107) mmol/L Carbon Dioxide 23 22 28 (22-30) mmol/L BUN 26 H 28 H 23 H (9-20) mg/dL Creatinine 0.90 1.00 0.90 (0.66-1.25) mg/dL Glucose 120 H 112 H 109 H (74-99) mg/dL Calcium 9.5 9.0 8.9 (8.4-10.2) mg/dL AST 19 22 (17-59) U/L ALT 33 27 (21-72) U/L Alkaline Phosphatase 75 67 (38-126) U/L Total Protein 6.9 6.7 (6.3-8.2) g/dL Albumin 4.1 3.8 (3.5-5.0) g/dL Calcium panel 11/27/16 11/27/16 11/28/16 Range/Units 14:06 20:18 05:08 Calcium 9.5 9.0 8.9 (8.4-10.2) mg/dL Ionized Calcium Елена 4.9 (4.5-5.3) mg/dL Phosphorus 3.4 3.1 (2.5-4.5) mg/dL Albumin 4.1 3.8 (3.5-5.0) g/dL Pituitary panel 11/27/16 11/27/16 11/28/16 Range/Units 14:06 20:18 05:08 Sodium 138 136 L 136 L (137-145) mmol/L Potassium 4.3 4.0 4.5 (3.5-5.1) mmol/L Chloride 103 103 100 (98-107) mmol/L Carbon Dioxide 23 22 28 (22-30) mmol/L BUN 26 H 28 H 23 H (9-20) mg/dL Creatinine 0.90 1.00 0.90 (0.66-1.25) mg/dL Glucose 120 H 112 H 109 H (74-99) mg/dL Calcium 9.5 9.0 8.9 (8.4-10.2) mg/dL Adrenal panel 11/27/16 11/27/16 11/28/16 Range/Units 14: 20:18 05:08 Sodium 138 136 L 136 L (137-145) mmol/L Potassium 4.3 4.0 4.5 (3.5-5.1) mmol/L Chloride 103 103 100 (98-107) mmol/L Carbon Dioxide 23 22 28 (22-30) mmol/L BUN 26 H 28 H 23 H (9-20) mg/dL Creatinine 0.90 1.00 0.90 (0.66-1.25) mg/dL Glucose 120 H 112 H 109 H (74-99) mg/dL Calcium 9.5 9.0 8.9 (8.4-10.2) mg/dL Total Bilirubin 1.2 1.0 (0.2-1.3) mg/dL AST 19 22 (17-59) U/L ALT 33 27 (21-72) U/L Alkaline Phosphatase 75 67 (38-126) U/L Total Protein 6.9 6.7 (6.3-8.2) g/dL Albumin 4.1 3.8 (3.5-5.0) g/dL - Imaging Chest x-ray: report reviewed CT scan - chest: report reviewed Assessment and Plan (1) Pleural effusion, right Status: Acute (2) Hypertension Status: Acute (3) Daily consumption of alcohol Status: Acute (4) Community acquired bacterial pneumonia Status: Acute (5) Acute respiratory failure with hypoxia Status: Acute (6) Morbid obesity with BMI of 50.0-59.9, adult Status: Acute Plan: 1. Continue current antibiotics per pulmonary services. Sputum cultures sent, pending. Blood cultures, Legionella antigen pending. 2. Wean O2 as tolerated. Encourage incentive spirometer use. 3. Medical management per primary service. 4. GI/DVT prophylaxis. 5. Will discuss with cardiothoracic surgeon treatment approach for patient's right-sided pleural effusion. More recommendations to come. Thank you Dr. Moscoso for this consult. We look forward to working with you in the care of your patient. Time with Patient: Greater than 30 <Abdiel Florez - Last Filed: 11/29/16 16:13> Surgical - Exam Vital Signs Temp Pulse Resp BP Pulse Ox 100.9 F H 105 H 24 165/84 87 L 11/27/16 13:17 11/27/16 13:17 11/27/16 13:17 11/27/16 13:17 11/27/16 13:17 Results - Labs 11/29/16 04:40 11/29/16 04:34 Abnormal Lab Results - Last 24 Hours (Table) 11/28/16 11/29/16 11/29/16 Range/Units 17:03 00:05 04:34 WBC (3.8-10.6) k/uL RBC (4.30-5.90) m/uL Hgb (13.0-17.5) gm/dL Neutrophils # (1.3-7.7) k/uL Lymphocytes # (1.0-4.8) k/uL Creatinine 0.60 L (0.66-1.25) mg/dL Glucose 135 H (74-99) mg/dL POC Glucose (mg/dL) 129 H 167 H (75-99) mg/dL Calcium 8.3 L (8.4-10.2) mg/dL Magnesium 2.7 H (1.6-2.3) mg/dL 11/29/16 11/29/16 Range/Units 04:40 12:20 WBC 21.4 H (3.8-10.6) k/uL RBC 4.01 L (4.30-5.90) m/uL Hgb 12.9 L (13.0-17.5) gm/dL Neutrophils # 20.2 H (1.3-7.7) k/uL Lymphocytes # 0.7 L (1.0-4.8) k/uL Creatinine (0.66-1.25) mg/dL Glucose (74-99) mg/dL POC Glucose (mg/dL) 126 H (75-99) mg/dL Calcium (8.4-10.2) mg/dL Magnesium (1.6-2.3) mg/dL Microbiology - Last 24 Hours (Table) 11/29/16 11:35 Gram Stain - Preliminary Pleural Fluid Body Fluid Culture - Preliminary 11/29/16 11:35 Acid Fast Bacilli Culture - Preliminary Lung Aspirate - Right 11/29/16 11:35 Fungal Culture - Preliminary Lung Aspirate - Right 11/27/16 23:00 Urine Culture - Final Urine,Catheterized 11/28/16 11:20 Gram Stain - Final Sputum Sputum Culture - Final 11/27/16 14:06 Blood Culture - Preliminary Blood No Growth after 24 hours Diabetes panel 11/29/16 Range/Units 04:34 Sodium 138 (137-145) mmol/L Potassium 4.3 (3.5-5.1) mmol/L Chloride 106 (98-107) mmol/L Carbon Dioxide 22 (22-30) mmol/L BUN 20 (9-20) mg/dL Creatinine 0.60 L (0.66-1.25) mg/dL Glucose 135 H (74-99) mg/dL Calcium 8.3 L (8.4-10.2) mg/dL Calcium panel 11/29/16 Range/Units 04:34 Calcium 8.3 L (8.4-10.2) mg/dL Phosphorus 3.4 (2.5-4.5) mg/dL Pituitary panel 11/29/16 Range/Units 04:34 Sodium 138 (137-145) mmol/L Potassium 4.3 (3.5-5.1) mmol/L Chloride 106 (98-107) mmol/L Carbon Dioxide 22 (22-30) mmol/L BUN 20 (9-20) mg/dL Creatinine 0.60 L (0.66-1.25) mg/dL Glucose 135 H (74-99) mg/dL Calcium 8.3 L (8.4-10.2) mg/dL Adrenal panel 11/29/16 Range/Units 04:34 Sodium 138 (137-145) mmol/L Potassium 4.3 (3.5-5.1) mmol/L Chloride 106 (98-107) mmol/L Carbon Dioxide 22 (22-30) mmol/L BUN 20 (9-20) mg/dL Creatinine 0.60 L (0.66-1.25) mg/dL Glucose 135 H (74-99) mg/dL Calcium 8.3 L (8.4-10.2) mg/dL Assessment and Plan Plan: The patient was seen and examined. He is a 56-year-old male with a history of multiple medical problems including morbid obesity. Apparently he began feeling ill approximately 2 weeks ago and has been treated as an outpatient for bronchitis with antibiotics and steroids. His symptoms have not resolved and he returned to the hospital for further care. He is currently in the ICU requiring a fair amount of supplemental oxygen. He does report right-sided discomfort. His white blood cell count is elevated. His computed tomography scan of the chest was personally reviewed. He appears to have a moderate to large size right pleural effusion. I do believe this is amenable to percutaneous drainage. We will arrange for this to be done by the interventional radiology department. We will certainly follow along with you. Thank you for allowing me to participate in the care of this patient. Should you have any further questions please feel free to contact me at your earliest convenience.
[2016-11-28] MEDS: LEVOFLOXACIN 750MG-D5W PMX 750 MG in DEXTROSE/WATER 1 150ML.BAG IVPB SCH (15:04)
[2016-11-28 17:04] LABS: Glucose,Whole Blood 129 mg/dL (75-99)
[2016-11-28] MEDS: LORazepam 2 MG/ML SYRINGE IV PRN (20:22)
[2016-11-28] MEDS: VANCOMYCIN 2,250 MG in SODIUM CHLORIDE 0.9% 500 ML IVPB SCH (20:29)
[2016-11-28] MEDS: DOCUSATE 100 MG CAP PO SCH (20:29)
--- NOTE | 2016-11-28 23:38 | P.CONS ---
History of Present Illness - Reason for Consult Consult date: 11/28/16 - Chief Complaint Increasing shortness of breath and severe right-sided chest pain - History of Present Illness 56-year-old male who has a known history of obesity and hypertension presents to the emergency center because of a week history of increasing illness. Approximately a week ago he had an acute bout of bronchitis. He felt very poorly and was seen by his primary care physician. He received a course of azithromycin and a medrol Dosepak. He relates that he did have some improvement of his cough and sputum production. He however is now developed the significant change of his status. Developed severe right-sided pain to his chest. Stabbing in nature. The socio- significant shortness of breath. Tachycardia. As well as a fever of 101.9. He was brought to Hospital by EMS and is now been admitted. Evidence of sepsis and was brought to the intensive care unit. He did have evidence of respiratory failure requiring BiPAP use. Also required pain medications and sedation for his significant anxiety and agitation from his shortness of breath and pain. Certainly feeling somewhat better today. Computed tomography scan failed to reveal evidence of a pulmonary embolus. But there is evidence of pneumonia and likely a right pleural effusion which could be empyema given his symptoms. With this the infectious diseases consultation is been requested. The case is discussed with the cardiothoracic surgeon. Review of Systems Pleasant but obese 56-year-old male who is feeling better tonight than admission. Fever is improving but still having significant discomfort requiring pain medication. Is less short of breath. HEENT:Denies headache or acute visual change. Denies sinus or mouth discomforts. Denies neck stiffness or pain. Denies significant oral cavity pain. Denies difficulty on swallowing. Lungs: As per the HPI Cardiovascular: Denies significant shortness of breath, chest pain, chest wall pain, orthopnea, dyspnea on exertion, syncope Gastrointestinal:Denies nausea, vomiting, diarrhea, constipation, hematemesis, melena, hematochezia. No no significant change of bowel habit noticed. Musculoskeletal: denies significant myalgias or arthralgias. No new joint swelling. Denies new back pain. Skin: Denies new rash or lesions. No new ulcers or wounds are related.. Neuro: Denies headache or visual change. Denies any new onset weakness or difficulty with ambulation. Denies falls or seizures. Psychiatric:Denies anxiety or depression. Endocrine: Chronic obesity and severe fatigue with the current illness but not ongoing. Past Medical History Past Medical History: GERD/Reflux, Hypertension Additional Past Medical History / Comment(s): Morbid obesity, environmental ALLERGIES, degenerative arthritis, hypertension. Has been evaluated by infectious disease in the past when he had a significant dermatophyte of the feet requiring antifungal therapy. Now well controlled History of Any Multi-Drug Resistant Organisms: MRSA Year Discovered:: 2013(when at [facility] pt) MDRO Source:: rt foot 2nd toe Past Surgical History: Orthopedic Surgery, Tonsillectomy Additional Past Surgical History / Comment(s): LEFT KNEE REPLACEMENT, lt eye cataract sx, rt shoulder sx d/t separation Past Anesthesia/Blood Transfusion Reactions: No Reported Reaction Past Psychological History: No Psychological Hx Reported Additional Psychological History / Comment(s): . Adult children. Works for a manufacturing facility. No experience. No recent travel. No animal exposures. No ill contacts between and children Smoking Status: Never smoker Past Alcohol Use History: Daily Additional Past Alcohol Use History / Comment(s): pt stated usually drinks 4 beer a day but for last 2 weeks since tx for bronchitis less than that Past Drug Use History: Marijuana Additional Drug Use History / Comment(s): pt smoked marijuana in his 20's - Past Family History Mother Family Medical History: Hypertension Father Family Medical History: Cancer, Diabetes Mellitus, Myocardial Infarction (VT) Additional Family Medical History / Comment(s): stomach cancer, x4 mi's Medications and Allergies Home Medications and Allergies Comment(s): Current Medications Acetaminophen (Tylenol Tab) 1,000 mg PO Q6HR PRN PRN Reason: Fever and/ or Mild Pain Last Admin: 11/28/16 08:57 Dose: 1,000 mg Albuterol/Ipratropium (Duoneb 0.5 Mg-3 Mg/3 Ml Soln) 3 ml INHALATION RT-QID [facility] Last Admin: 11/28/16 20:01 Dose: 3 ml Docusate Sodium (Colace) 100 mg PO BID [facility] Last Admin: 11/28/16 20:29 Dose: 100 mg Enoxaparin Sodium (Lovenox) 40 mg SQ DAILY [facility] Last Admin: 11/28/16 09:01 Dose: 40 mg Hydrochlorothiazide (Hydrodiuril) 12.5 mg PO DAILY [facility] Last Admin: 11/28/16 09:00 Dose: 12.5 mg Hydromorphone HCl (Dilaudid) 1 mg IVP Q3HR PRN PRN Reason: Pain Last Admin: 11/28/16 20:22 Dose: 1 mg Levofloxacin 750 mg/ IV (Solution) 150 mls @ 100 mls/hr IVPB Q24H [facility] Stop: 12/10/16 14:01 Last Admin: 11/28/16 15:04 Dose: 100 mls/hr Piperacillin/Tazobactam/ (Dextrose 3.375 gm/ IV Solution) 50 mls @ 12.5 mls/hr IVPB Q8HR [facility] Stop: 12/07/16 00:01 Last Admin: 11/28/16 16:44 Dose: 12.5 mls/hr Sodium Chloride (Saline 0.9%) 1,000 mls @ 100 mls/hr IV .Q10H [facility] Last Admin: 11/28/16 15:50 Dose: 100 mls/hr Vancomycin HCl 2,250 mg/ (Sodium Chloride) 500 mls @ 167 mls/hr IVPB Q12HR [facility] Last Admin: 11/28/16 20:29 Dose: 167 mls/hr Ibuprofen (Motrin) 600 mg PO TID PRN PRN Reason: Fever Insulin Human Lispro (Humalog) 0 unit SQ Q6H [facility] PRN Reason: Protocol Last Admin: 11/28/16 17:03 Dose: Not Given Lisinopril (Zestril) 20 mg PO DAILY [facility] Last Admin: 11/28/16 09:00 Dose: 20 mg Lorazepam (Ativan) 1 mg IV Q4HR PRN PRN Reason: Anxiety Last Admin: 11/28/16 20:22 Dose: 1 mg Methylprednisolone Sodium Succinate (Solu-Medrol) 60 mg IV Q6HR [facility] Last Admin: 11/28/16 17:05 Dose: 60 mg Miscellaneous Information (Pneumonia Protocol Utilized) 1 each PO ONCE PRN PRN Reason: Per Protocol Miscellaneous Information (Rx Info: Iv Contrast Was Given) 1 each MISCELLANE DAILY PRN PRN Reason: Per Protocol Stop: 11/30/16 09:32 Morphine Sulfate (Morphine Sulfate (Inj)) 4 mg IVP Q4HR PRN PRN Reason: Severe Pain Last Admin: 11/28/16 09:27 Dose: 4 mg Naloxone HCl (Narcan) 0.2 mg IV Q2M PRN PRN Reason: Opioid Reversal Pantoprazole Sodium (Protonix) 40 mg IV DAILY [facility] Last Admin: 11/28/16 09:01 Dose: 40 mg Home Medications Medication Instructions Recorded Confirmed Type Ergocalciferol [Vitamin D2] 50,000 unit PO SA 02/21/16 11/27/16 History Etodolac [Lodine] 400 mg PO TID 02/21/16 11/27/16 History Hydrochlorothiazide [Hydrodiuril] 12.5 mg PO HS 02/21/16 11/27/16 History Lisinopril [Zestril] 20 mg PO HS 02/21/16 11/27/16 History Montelukast [Singulair] 10 mg PO HS 02/21/16 11/27/16 History Allergies Allergy/AdvReac Type Severity Reaction Status Date / Time Penicillins Allergy Unknown Verified 11/27/16 13:39 Childhood Sulfa (Sulfonamide AdvReac Itching Verified 11/27/16 13:39 Antibiotics) Physical Exam Vitals: Vital Signs Temp Pulse Pulse Resp BP Pulse Ox 11/28/16 20:20 84 11/28/16 20:09 84 11/28/16 18:00 88 22 149/69 93 L 11/28/16 17:00 84 22 138/76 94 L 11/28/16 16:00 97.9 F 83 24 131/74 93 L 11/28/16 15:54 78 11/28/16 15:40 78 11/28/16 15:00 75 20 108/73 94 L 11/28/16 14:00 80 25 H 107/68 93 L 11/28/16 13:00 85 24 103/63 97 11/28/16 12:00 98.7 F 91 22 106/54 96 11/28/16 11:00 98 24 115/59 96 11/28/16 10:00 97 24 137/74 96 11/28/16 09:00 98 24 147/72 96 11/28/16 08:00 98.7 F 107 H 28 H 162/88 95 11/28/16 07:31 94 L 11/28/16 07:00 97 26 H 120/70 96 11/28/16 06:00 120 H 47 H 189/92 97 11/28/16 05:00 76 27 H 133/74 97 11/28/16 04:00 99 F 70 103 H 27 H 134/79 99 11/28/16 03:00 76 24 126/75 98 11/28/16 02:00 79 26 H 126/72 98 11/28/16 01:00 81 31 H 124/74 99 11/28/16 00:00 98 F 75 103 H 26 H 120/65 99 Intake and Output 11/28/16 11/28/16 11/29/16 14:59 22:59 06:59 Intake Total 1190.0 587.5 Output Total 435 560 Balance 755.0 27.5 Intake: IV 640 400 Sodium Chloride 0.9% 1, 640 400 000 ml @ 100 mls/hr IV . Q10H [facility] Rx#:[id number] Intake, IV Titration 550.0 187.5 Amount Levofloxacin 750Mg-D5w 150 Pmx 750 mg In Dextrose/ Water 1 150ml.bag @ 100 mls/hr IVPB Q24H [facility] Rx#: [id number] Piperacillin-Tazobactam 3 50.0 37.5 .375 gm In Dextrose/Water 1 50ml.bag @ 12.5 mls/hr IVPB Q8HR [facility] Rx#: [id number] Vancomycin 2,250 mg In 500 Sodium Chloride 0.9% 500 ml @ 167 mls/hr IVPB Q12HR [facility] Rx#:[id number] Output: Urine 435 560 Other: Voiding Method Indwelling Catheter Indwelling Catheter Weight 170.7 kg Patient Weight 11/29/16 06:59 Weight 170.7 kg Pleasant obese 56-year-old male who is quite uncomfortable. Complaining that significant right-sided chest pain and is still short of breath but improved HEENT: Anicteric conjunctiva are pink and moist nasal mucosa grossly intact without significant lesions, there is no thrush. Neck: The neck is supple without significant lymphadenopathy or thyromegaly. Lungs: Symmetrical air entry. Expiratory wheeze. Crackles at the right base. A few bronchial sounds at the right base. No significant percussion tenderness to the right chest. No significant egophony be appreciated Heart: Regular rate and rhythm with an audible S1-S2, no S3 no S4. There is no significant murmur click or rub, PMI was nondisplaced. Abdomen: Obese Positive bowel sounds soft and nontender without palpable masses or organomegaly. There was no guarding or rebound. Extremities: The upper extremities have excellent pulses they are symmetric, no significant petechiae or telangiectasia. No splinter hemorrhages were noted. The lower extremities are free from significant edema. The peripheral pulses were 2+ and symmetric. Neuro: Awake alert oriented to person place and time. There are no acute new gross focal sensory motor deficits. Results CBC & Chem 7: 11/28/16 05:08 11/28/16 05:08 Labs: Abnormal Lab Results - Last 24 Hours (Table) 11/27/16 11/28/16 11/28/16 Range/Units 23:00 05:08 05:08 WBC 22.0 H (3.8-10.6) k/uL Neutrophils # 19.6 H (1.3-7.7) k/uL Sodium 136 L (137-145) mmol/L BUN 23 H (9-20) mg/dL Glucose 109 H (74-99) mg/dL POC Glucose (mg/dL) (75-99) mg/dL Magnesium 2.4 H (1.6-2.3) mg/dL Urine Bilirubin 1+ H (Negative) 11/28/16 11/28/16 Range/Units 12:10 17:03 WBC (3.8-10.6) k/uL Neutrophils # (1.3-7.7) k/uL Sodium (137-145) mmol/L BUN (9-20) mg/dL Glucose (74-99) mg/dL POC Glucose (mg/dL) 126 H 129 H (75-99) mg/dL Magnesium (1.6-2.3) mg/dL Urine Bilirubin (Negative) Microbiology - Last 24 Hours (Table) 11/27/16 14:06 Blood Culture - Preliminary Blood No Growth after 24 hours 11/28/16 11:20 Gram Stain - Preliminary Sputum Sputum Culture - Preliminary 11/27/16 23:00 Urine Culture - Preliminary Urine,Catheterized Laboratory Results WBC 22.0 k/uL (3.8-10.6) H 11/28/16 05:08 RBC 4.38 m/uL (4.30-5.90) 11/28/16 05:08 Hgb 14.2 gm/dL (13.0-17.5) 11/28/16 05:08 Hct 43.4 % (39.0-53.0) 11/28/16 05:08 MCV 99.2 fL (80.0-100.0) 11/28/16 05:08 MCH 32.5 pg (25.0-35.0) 11/28/16 05:08 MCHC 32.8 g/dL (31.0-37.0) 11/28/16 05:08 RDW 13.6 % (11.5-15.5) 11/28/16 05:08 Plt Count 264 k/uL (150-450) 11/28/16 05:08 Neutrophils % 89 % 11/28/16 05:08 Neutrophils % (Manual) 90.0 % 11/27/16 14:06 Lymphocytes % 6 % 11/28/16 05:08 Lymphocytes % (Manual) 7.0 % 11/27/16 14:06 Monocytes % 4 % 11/28/16 05:08 Monocytes % (Manual) 3.0 % 11/27/16 14:06 Eosinophils % 1 % 11/28/16 05:08 Basophils % 0 % 11/28/16 05:08 Neutrophils # 19.6 k/uL (1.3-7.7) H 11/28/16 05:08 Neutrophils # (Manual) 23.2 k/uL (1.3-7.7) H 11/27/16 14:06 Lymphocytes # 1.3 k/uL (1.0-4.8) 11/28/16 05:08 Lymphocytes # (Manual) 1.8 k/uL (1.0-4.8) 11/27/16 14:06 Monocytes # 0.9 k/uL (0-1.0) 11/28/16 05:08 Monocytes # (Manual) 0.8 k/uL (0-1.0) 11/27/16 14:06 Eosinophils # 0.1 k/uL (0-0.7) 11/28/16 05:08 Basophils # 0.0 k/uL (0-0.2) 11/28/16 05:08 Nucleated RBCs 0 /100 WBC (0-0) 11/27/16 14:06 RBC Morphology Normal 11/27/16 14:06 PT 11.4 sec (9.0-12.0) 11/27/16 20:18 INR 1.1 (<1.1) 11/27/16 20:18 APTT 28.9 sec (22.0-30.0) 11/27/16 20:18 D-Dimer 0.80 mg/L FEU (<0.60) H 11/27/16 20:18 Sample Site LRAD 11/28/16 05:59 ABG pH 7.38 (7.35-7.45) 11/28/16 05:59 ABG pCO2 40 mmHg (35-45) 11/28/16 05:59 ABG pO2 84 mmHg (83-108) 11/28/16 05:59 ABG HCO3 23 mmol/L (21-25) 11/28/16 05:59 ABG Total CO2 24 mmol/L (19-24) 11/28/16 05:59 ABG O2 Saturation 96.0 % (94-97) 11/28/16 05:59 ABG Base Excess -1.4 mmol/L 11/28/16 05:59 FiO2 100 % 11/28/16 05:59 Sodium 136 mmol/L (137-145) L 11/28/16 05:08 Potassium 4.5 mmol/L (3.5-5.1) 11/28/16 05:08 Chloride 100 mmol/L (98-107) 11/28/16 05:08 Carbon Dioxide 28 mmol/L (22-30) 11/28/16 05:08 Anion Gap 8 mmol/L 11/28/16 05:08 BUN 23 mg/dL (9-20) H 11/28/16 05:08 Creatinine 0.90 mg/dL (0.66-1.25) 11/28/16 05:08 Est GFR (MDRD) Af Amer >60 (>60 ml/min/1.73 sqM) 11/28/16 05:08 Est GFR (MDRD) Non-Af >60 (>60 ml/min/1.73 sqM) 11/28/16 05:08 Glucose 109 mg/dL (74-99) H 11/28/16 05:08 POC Glucose (mg/dL) 129 mg/dL (75-99) H 11/28/16 17:03 POC Glu Fitness Director ID Clover Toribio 11/28/16 17:[address] Glu mg/dL 123 mg/dL 11/28/16 05:08 Hemoglobin A1c 5.9 % (4.2-6.1) 11/28/16 05:08 Plasma Lactic Acid Jaskaran 1.3 mmol/L (0.7-2.0) 11/27/16 20:14 Calcium 8.9 mg/dL (8.4-10.2) 11/28/16 05:08 Ionized Calcium Елена 4.9 mg/dL (4.5-5.3) 11/27/16 20:18 Phosphorus 3.1 mg/dL (2.5-4.5) 11/28/16 05:08 Magnesium 2.4 mg/dL (1.6-2.3) H 11/28/16 05:08 Total Bilirubin 1.0 mg/dL (0.2-1.3) 11/27/16 20:18 AST 22 U/L (17-59) 11/27/16 20:18 ALT 27 U/L (21-72) 11/27/16 20:18 Alkaline Phosphatase 67 U/L (38-126) 11/27/16 20:18 Total Creatine Kinase 96 U/L (55-170) 11/27/16 14:06 CK-MB (CK-2) 5.9 ng/mL (0.0-2.4) H* 11/27/16 20:18 CK-MB (CK-2) Rel Index 7.3 11/27/16 14:06 Troponin I <0.012 ng/mL (0.000-0.034) 11/27/16 20:18 NT-Pro-B Natriuret Pep 97 pg/mL 11/27/16 14:06 Total Protein 6.7 g/dL (6.3-8.2) 11/27/16 20:18 Albumin 3.8 g/dL (3.5-5.0) 11/27/16 20:18 Amylase 35 U/L (30-110) 11/27/16 20:18 Lipase 94 U/L (23-300) 11/27/16 20:18 Urine Color Yellow 11/27/16 23:00 Urine Appearance Clear (Clear) 11/27/16 23:00 Urine pH 5.5 (5.0-8.0) 11/27/16 23:00 Ur Specific [place] 1.016 (1.001-1.035) 11/27/16 23:00 Urine Protein Negative (Negative) 11/27/16 23:00 Urine Glucose (UA) Negative (Negative) 11/27/16 23:00 Urine Ketones Negative (Negative) 11/27/16 23:00 Urine Blood Negative (Negative) 11/27/16 23:00 Urine Nitrite Negative (Negative) 11/27/16 23:00 Urine Bilirubin 1+ (Negative) H 11/27/16 23:00 Urine Urobilinogen <2.0 mg/dL (<2.0) 11/27/16 23:00 Ur Leukocyte Esterase Negative (Negative) 11/27/16 23:00 Microbiology 11/27/16 14:06 Blood Blood Culture - Preliminary No Growth after 24 hours 11/28/16 11:20 Sputum Gram Stain - Preliminary 11/28/16 11:20 Sputum Sputum Culture - Preliminary 11/27/16 23:00 Urine,Catheterized Urine Culture - Preliminary Assessment and Plan (1) Acute respiratory failure with hypoxia Narrative/Plan: 56-year-old male presents to Hospital significant shortness of breath cough or sputum production and severe right-sided chest pain. Imaging studies reveal evidence of sher pneumonia and likely fluid collection and possible empyema but no pulmonary embolus. Receiving extensive antibiotic therapy at this time all cultures are process with piperacillin tazobactam and Levaquin with concerns to gram-negative pneumonia. The patient is no significant alcohol user and aspiration pneumonia is not a concern at this time. Could also have routine Streptococcus pneumoniae with results pleural effusion which is common and potential empyema. Case discussed with cardio thoracic surgery. We'll further evaluate and potential for percutaneous drainage via radiology if it's a small site. If it' s large they will then consider chest tube drainage. Cultures are in process and will further direct antibiotic therapy severe leukocytosis due to the significant sepsis and steroid use. Pain is much improved. Status: Acute (2) Morbid obesity with BMI of 50.0-59.9, adult Status: Acute (3) Gram-negative pneumonia Status: Acute (4) Empyema lung Status: Acute
[2016-11-29] MEDS: PIPERACILLIN-TAZOBACTAM 3.375 GM in DEXTROSE/WATER 1 50ML.BAG IVPB SCH ×3 (00:03→16:39)
[2016-11-29] MEDS: methylPREDNISolone SOD SUCCI 125 MG/2 ML VIAL IV SCH ×4 (00:03→18:36)
[2016-11-29] MEDS: INSULIN LISPRO (humaLOG) 300 UNIT/3 ML VIAL SQ SCH ×4 (00:05→18:36)
[2016-11-29 00:07] LABS: Glucose,Whole Blood 167 mg/dL (75-99)
[2016-11-29 05:24] LABS: Basophils % (A) 0 %; CHCM 31.3; Eosinophils % (A) 0 %; HCT 39.9 % (39.0-53.0); HDW 2.14; HGB 12.9 gm/dL (13.0-17.5); Luc # (Auto) 0.06; Luc % (Auto) 0; Lymphocytes # (A) 0.7 k/uL (1.0-4.8); Lymphocytes % (A) 3 %; MCH 32.1 pg (25.0-35.0); MCHC 32.3 g/dL (31.0-37.0); MCV 99.3 fL (80.0-100.0); Mean Platelet Volume 6.9; Monocytes # (A) 0.4 k/uL (0-1.0); Monocytes % (A) 2 %; Neutrophils # (A) 20.2 k/uL (1.3-7.7); Neutrophils % (A) 95 %; RBC 4.01 m/uL (4.30-5.90); RDW 13.5 % (11.5-15.5); WBC 21.4 k/uL (3.8-10.6); WBC (Perox) 22.03
[2016-11-29 05:33] LABS: Anion Gap 10 mmol/L; Blood Urea Nitrogen 20 mg/dL (9-20); Calcium 8.3 mg/dL (8.4-10.2); Carbon Dioxide 22 mmol/L (22-30); Chloride 106 mmol/L (98-107); Glucose 135 mg/dL (74-99); Magnesium 2.7 mg/dL (1.6-2.3); Non-African American GFR(MDRD) >60 (>60 ml/min/1.73 sqM); Phosphorous 3.4 mg/dL (2.5-4.5); Potassium 4.3 mmol/L (3.5-5.1); Sodium 138 mmol/L (137-145)
[2016-11-29] MEDS: HYDROmorphone 1 MG/ML 1 ML SYRINGE IVP PRN ×5 (06:35→23:02)
[2016-11-29] MEDS: SODIUM CHLORIDE 0.9% 1,000 ML IV SCH ×2 (06:36→16:39)
[2016-11-29] MEDS: LORazepam 2 MG/ML SYRINGE IV PRN ×2 (06:37→23:03)
--- NOTE | 2016-11-29 08:40 | XR ---
EXAMINATION TYPE: XR chest 1V DATE OF EXAM: 11/29/2016 6:41 AM COMPARISON: 11/28/2016 HISTORY: Right lung pneumonia TECHNIQUE: Single frontal view of the chest is obtained. FINDINGS: There is bilateral areas of consolidation and pleural effusion. Mediastinum is enlarged. N o pneumothorax. IMPRESSION: Bilateral diffuse airspace disease with enlargement of the mediastinum. Pleural effusion suspected. Correlate with recent CT report to assess for adenopathy, mass or aneurysm.
[2016-11-29] MEDS: ENOXAPARIN 40 MG/0.4 ML SYRINGE SQ SCH (08:49)
[2016-11-29] MEDS: PANTOPRAZOLE 40 MG/10 ML VIAL IV SCH (08:50)
[2016-11-29] MEDS: LISINOPRIL 20 MG TAB PO SCH (08:50)
[2016-11-29] MEDS: VANCOMYCIN 2,250 MG in SODIUM CHLORIDE 0.9% 500 ML IVPB SCH ×2 (08:50→21:53)
[2016-11-29] MEDS: HYDROCHLOROTHIAZIDE 12.5 MG CAP PO SCH (08:50)
[2016-11-29] MEDS: DOCUSATE 100 MG CAP PO SCH ×2 (08:50→21:53)
[2016-11-29] MEDS: IPRATROPIUM-ALBUTEROL 3 ML NEB INHALATION SCH ×5 (08:59→22:31)
--- NOTE | 2016-11-29 09:34 | ECHOF ---
Referral Reason:dyspnea MEASUREMENTS -------- HEIGHT: 182.9 cm WEIGHT: 170.6 kg BP: 103/63 RVIDd: 3.6 cm (< 3.3) IVSd: 1.4 cm (0.6 - 1.1) LVIDd: 4.8 cm (3.9 - 5.3) LVPWd: 1.6 cm (0.6 - 1.1) IVSs: 2.0 cm LVIDs: 3.1 cm LVPWs: 2.2 cm LA Diam: 3.4 cm (2.7 - 3.8) LAESV Index (A-L): 24.91 ml/m Ao Diam: 4.0 cm (2.0 - 3.7) AV Cusp: 2.8 cm (1.5 - 2.6) MV EXCURSION: 15.618 mm (> 18.000) MV EF SLOPE: 98 mm/s (70 - 150) EPSS: 0.8 cm MV E Jassi: 0.72 m/s MV DecT: 315 ms MV A Jassi: 1.05 m/s MV E/A Ratio: 0.69 AV maxP.87 mmHg AV meanP.89 mmHg RAP: 5.00 mmHg RVSP: 28.65 mmHg FINDINGS -------- Sinus rhythm. This was a technically adequate study. The left ventricular size is normal. There is moderate concentric left ventricular hypertrophy. Overall left ventricular systolic function is normal with, an EF between 55 - 60 %. The right ventricle is mildly enlarged. Normal LA size by volume 22+/-6 ml/m2. The right atrium is normal in size. Aortic valve is trileaflet and is mildly thickened. Mild mitral annular calcification present. The tricuspid valve was not well visualized. The pulmonic valve was not well visualized. The aortic root is dilated measuring 4.0cm. The pericardium is normal. CONCLUSIONS -------- 1. Sinus rhythm. 2. Mild mitral annular calcification present. 3. The tricuspid valve was not well visualized. 4. The pulmonic valve was not well visualized. 5. The aortic root is dilated measuring 4.0cm. 6. The pericardium is normal. 7. This was a technically adequate study. 8. The left ventricular size is normal. 9. There is moderate concentric left ventricular hypertrophy. 10. Overall left ventricular systolic function is normal with, an EF between 55 - 60 %. 11. The right ventricle is mildly enlarged. 12. Normal LA size by volume 22+/-6 ml/m2. 13. The right atrium is normal in size. 14. Aortic valve is trileaflet and is mildly thickened. AVIONICS MECHANIC: Ofelia Liang RDCS
[2016-11-29 12:22] LABS: Glucose,Whole Blood 126 mg/dL (75-99)
[2016-11-29] MEDS: LEVOFLOXACIN 750MG-D5W PMX 750 MG in DEXTROSE/WATER 1 150ML.BAG IVPB SCH (13:47)
[2016-11-29 13:54] LABS: RBC, Body Fluid 6500 /uL
--- NOTE | 2016-11-29 15:09 | P.PN ---
Subjective 56-year-old obese male patient, who got moved to the intensive care unit yesterday because of worsening shortness of breath and bilateral pneumonia. This patient was in a good state of health until approximately 10 days ago when he developed symptoms of acute bronchitis. He contacted his primary care physician, Dr. Farrar, we'll give this patient a Z-Avery and a Medrol Dosepak. The patient also has albuterol solution for nebulizer as his has bronchial asthma. He did some albuterol treatment and he felt better. He completed his antibiotic course 6 days ago. Around 3 days ago he started developing severe acute pleuritic right-sided chest pain. The pain was severe to the point where the patient was unable to breathe 10. He felt hot and cold and there was no documented temperature. He became progressively short of breath and for that reason he was brought into the hospital. I reviewed a series of chest x-rays that were done since admission. There is obvious progression to the point where the patient has developed severe consolidation of the right lower lobe in addition to some infiltration of the left lower lobe and possibly a pleural effusion on the right is suspected. Empyema cannot be completely ruled out. The lung volumes are small. The patient has no hemoptysis. He is coughing out minimal amount of sputum. His white cell count is elevated. Overnight he was placed on a BiPAP at a pressure of 10 over 5 and currently is on 100% nonrebreather facemask with an oxygen saturation of 95%. He has no change in mental status. No previous pneumonias. He has remote history of MRSA infection in his right foot which got treated. No aspiration. No travel history. No smoking. No 70 chronic lung disease. He has features of obstructive sleep apnea however this has not been demonstrated or studies further. He is currently on a combination of Zosyn and Levaquin. On 11/29/2016 the patient is being seen in follow-up. The patient has an extensive right lung pneumonia with multiloculated right-sided pleural effusion. The patient was having severe pleurisy. The patient was covered with broad-spectrum antibiotics including a combination of Zosyn, Levaquin and vancomycin. The CAT scan of the chest that was done earlier was reviewed and the patient has a moderate-sized right-sided pleural effusion collection patient has not completely day or and there is obvious loculation. There is also compressive atelectasis of the right lung base. Based on all this, I discussed the case with the cardiac thoracic surgeon and I sent this patient to interventional radiology where a pigtail catheter was inserted to the right lung and a total of 250 mL of fluid has been aspirated already at the pigtail catheter is draining into the pleural VAC. Clinically the patient is doing well. He is on 15 L of oxygen nasal cannula. White cell count is still elevated. First is improved. No hypotension. No nausea. No vomiting. No other complaints including the absence of any mental status change. Cultures of been all negative thus far. Chest x-ray from earlier this morning shows opacification of lower two third of the right lung field. Objective - Vital Signs Vital signs: Vital Signs Temp 98.1 F 11/29/16 12:00 Pulse 88 11/29/16 14:00 Resp 22 11/29/16 14:00 BP 165/80 11/29/16 14:00 Pulse Ox 91 L 11/29/16 14:00 Intake & Output 11/28/16 11/29/16 11/29/16 18:59 06:59 18:59 Intake Total 1777.5 1100 1250 Output Total 995 1195 650 Balance 782.5 -95 600 Weight 170.7 kg 170.7 kg Intake: IV 1040 1100 700 Sodium Chloride 0.9% 1, 1040 1100 700 000 ml @ 100 mls/hr IV . Q10H [facility] Rx#:[id number] Intake, IV Titration 737.5 550 Amount Levofloxacin 750Mg-D5w 150 Pmx 750 mg In Dextrose/ Water 1 150ml.bag @ 100 mls/hr IVPB Q24H [facility] Rx#: [id number] Piperacillin-Tazobactam 3 87.5 50 .375 gm In Dextrose/Water 1 50ml.bag @ 12.5 mls/hr IVPB Q8HR [facility] Rx#: [id number] Vancomycin 2,250 mg In 500 Sodium Chloride 0.9% 500 ml @ 167 mls/hr IVPB Q12HR [facility] Rx#:[id number] Vancomycin 2,500 mg In 500 Sodium Chloride 0.9% 500 ml @ 167 mls/hr IVPB ONCE ONE Rx#:[id number] Output: Urine 995 1195 650 Other: Voiding Method Indwelling Catheter Indwelling Catheter Indwelling Catheter - Exam Morbid obesity, and mild degree of respiratory distress, not using accessory muscles of breathing.Head exam was generally normal. There was no scleral icterus or corneal arcus. Mucous membranes were moist.Neck was supple and without jugular venous distension, thyromegaly, or carotid bruits. Carotids were easily palpable bilaterally. There was no adenopathy. There is significant crowding of the posterior oropharynx with a Mallampati class IV. Lung sounds are markedly diminished in lung bases bilaterally especially in the right lung base and the patient has a pigtail catheter within the right lateral chest area attached to a Pleur-evac. No wheezes.Cardiac exam revealed the PMI to be normally situated and sized. The rhythm was regular and no extrasystoles were noted during several minutes of auscultation. The first and second heart sounds were normal and physiologic splitting of the second heart sound was noted. There were no murmurs, rubs, clicks, or gallops.Abdominal exam revealed normal bowel sounds. The abdomen was soft, non-tender, and without masses, organomegaly, or appreciable enlargement of the abdominal aorta.Examination of the extremities revealed easily palpable radial, femoral and pedal pulses. There was no cyanosis, clubbing or edema. - Labs CBC & Chem 7: 11/29/16 04:40 11/29/16 04:34 Labs: Abnormal Lab Results - Last 24 Hours (Table) 11/28/16 11/29/16 11/29/16 Range/Units 17:03 00:05 04:34 WBC (3.8-10.6) k/uL RBC (4.30-5.90) m/uL Hgb (13.0-17.5) gm/dL Neutrophils # (1.3-7.7) k/uL Lymphocytes # (1.0-4.8) k/uL Creatinine 0.60 L (0.66-1.25) mg/dL Glucose 135 H (74-99) mg/dL POC Glucose (mg/dL) 129 H 167 H (75-99) mg/dL Calcium 8.3 L (8.4-10.2) mg/dL Magnesium 2.7 H (1.6-2.3) mg/dL 11/29/16 11/29/16 Range/Units 04:40 12:20 WBC 21.4 H (3.8-10.6) k/uL RBC 4.01 L (4.30-5.90) m/uL Hgb 12.9 L (13.0-17.5) gm/dL Neutrophils # 20.2 H (1.3-7.7) k/uL Lymphocytes # 0.7 L (1.0-4.8) k/uL Creatinine (0.66-1.25) mg/dL Glucose (74-99) mg/dL POC Glucose (mg/dL) 126 H (75-99) mg/dL Calcium (8.4-10.2) mg/dL Magnesium (1.6-2.3) mg/dL Microbiology - Last 24 Hours (Table) 11/29/16 11:35 Acid Fast Bacilli Culture - Preliminary Lung Aspirate - Right 11/29/16 11:35 Body Fluid Culture - Preliminary Pleural Fluid 11/29/16 11:35 Fungal Culture - Preliminary Lung Aspirate - Right 11/27/16 23:00 Urine Culture - Final Urine,Catheterized 11/28/16 11:20 Gram Stain - Final Sputum Sputum Culture - Final 11/27/16 14:06 Blood Culture - Preliminary Blood No Growth after 24 hours Assessment and Plan Plan: Assessment 1 acute bilateral pneumonia with interval progression and worsening in the consolidation of the right lower lobe with possibly development of a loculated right-sided pleural effusion with right basilar compressive atelectasis. The patient is status post pigtail catheter insertion and there is no evidence of empyema although there is a high suspicion for a complicated right-sided parapneumonic effusion. Cultures of been all negative thus far. 2 acute pleuritic right-sided chest pain secondary to above 3 acute hypoxic respiratory failure currently on high flow oxygen to maintain a saturation above 90% 4 acute BiPAP dependent respiratory failure, and the patient was taken off the BiPAP this morning 5 leukocytosis 6 morbid obesity 7 hypertension 8 degenerative arthritis 9 bronchitis that was treated approximately a week ago on outpatient basis with a combination of Zithromax and prednisone burst taper Plan We'll send the pleural fluid for cell count analysis. We will continue same antibiotic coverage. Continue monitoring the output from the chest tube. Continue monitoring daily chest x-rays. CT surgeries on the case. Wean off FiO2 as tolerated. Continue same antibiotic coverage. ID is on the case. We' ll continue to follow make further recommendations. Likely that the patient may need a VATS at a later stage.
--- NOTE | 2016-11-29 15:30 | P.PN ---
Subjective patient is a 56-year-old male patient, who got moved to the intensive care unit yesterday because of worsening shortness of breath and bilateral pneumonia. This patient was in a good state of health until approximately 10 days ago when he developed symptoms of acute bronchitis. He contacted his primary care physician, Dr. Farrar, who gave him a Z-Avery and a Medrol Dosepak. Patient continued to deteriorate and presented to [facility] chest x-ray revealed evidence of pneumonia he was initially admitted to telemetry floor and subsequently transferred to intensive care unit due to worsening shortness of breath patient was initially started on BiPAP. Patient had right sided pleural effusion and empyema was suspected, he underwent chest tube placement today. Case was discussed in details with Dr. Moscoso Objective - Vital Signs Vital signs: Vital Signs Temp 98.1 F 11/29/16 12:00 Pulse 88 11/29/16 14:00 Resp 22 11/29/16 14:00 BP 165/80 11/29/16 14:00 Pulse Ox 91 L 11/29/16 14:00 Intake & Output 11/28/16 11/29/16 11/29/16 18:59 06:59 18:59 Intake Total 1777.5 1100 1250 Output Total 995 1195 650 Balance 782.5 -95 600 Weight 170.7 kg 170.7 kg Intake: IV 1040 1100 700 Sodium Chloride 0.9% 1, 1040 1100 700 000 ml @ 100 mls/hr IV . Q10H [facility] Rx#:[id number] Intake, IV Titration 737.5 550 Amount Levofloxacin 750Mg-D5w 150 Pmx 750 mg In Dextrose/ Water 1 150ml.bag @ 100 mls/hr IVPB Q24H [facility] Rx#: [id number] Piperacillin-Tazobactam 3 87.5 50 .375 gm In Dextrose/Water 1 50ml.bag @ 12.5 mls/hr IVPB Q8HR [facility] Rx#: [id number] Vancomycin 2,250 mg In 500 Sodium Chloride 0.9% 500 ml @ 167 mls/hr IVPB Q12HR [facility] Rx#:[id number] Vancomycin 2,500 mg In 500 Sodium Chloride 0.9% 500 ml @ 167 mls/hr IVPB ONCE ONE Rx#:[id number] Output: Urine 995 1195 650 Other: Voiding Method Indwelling Catheter Indwelling Catheter Indwelling Catheter - Exam In general patient is alert and oriented 3 in no apparent distress HEENT head normocephalic and atraumatic Neck is supple no JVD no goiter no lymphadenopathy Chest exam reveals tachypnea with scattered crackles in both lung polk no wheezing Cardiac exam reveals tachycardia with S1 and S2 regular rhythm no gallops no murmurs Abdomen is soft nontender no organomegaly Extremity exam reveals no edema no cyanosis or clubbing Neurological examination reveals no focal deficit Skin exam reveals no open ulcers no rashes or ecchymoses - Labs CBC & Chem 7: 11/29/16 04:40 11/29/16 04:34 Labs: Abnormal Lab Results - Last 24 Hours (Table) 11/28/16 11/29/16 11/29/16 Range/Units 17:03 00:05 04:34 WBC (3.8-10.6) k/uL RBC (4.30-5.90) m/uL Hgb (13.0-17.5) gm/dL Neutrophils # (1.3-7.7) k/uL Lymphocytes # (1.0-4.8) k/uL Creatinine 0.60 L (0.66-1.25) mg/dL Glucose 135 H (74-99) mg/dL POC Glucose (mg/dL) 129 H 167 H (75-99) mg/dL Calcium 8.3 L (8.4-10.2) mg/dL Magnesium 2.7 H (1.6-2.3) mg/dL 11/29/16 11/29/16 Range/Units 04:40 12:20 WBC 21.4 H (3.8-10.6) k/uL RBC 4.01 L (4.30-5.90) m/uL Hgb 12.9 L (13.0-17.5) gm/dL Neutrophils # 20.2 H (1.3-7.7) k/uL Lymphocytes # 0.7 L (1.0-4.8) k/uL Creatinine (0.66-1.25) mg/dL Glucose (74-99) mg/dL POC Glucose (mg/dL) 126 H (75-99) mg/dL Calcium (8.4-10.2) mg/dL Magnesium (1.6-2.3) mg/dL Microbiology - Last 24 Hours (Table) 11/29/16 11:35 Acid Fast Bacilli Culture - Preliminary Lung Aspirate - Right 11/29/16 11:35 Body Fluid Culture - Preliminary Pleural Fluid 11/29/16 11:35 Fungal Culture - Preliminary Lung Aspirate - Right 11/27/16 23:00 Urine Culture - Final Urine,Catheterized 11/28/16 11:20 Gram Stain - Final Sputum Sputum Culture - Final 11/27/16 14:06 Blood Culture - Preliminary Blood No Growth after 24 hours Assessment and Plan Plan: 1. Acute bilateral pneumonia: Chest x-ray from this morning shows worsening consolidation and pleural effusion. Case was discussed with pulmonary service. There are concerns about a possible empyema. Computed tomography scan shows no large saddle central PE. Does show a fairly moderate size non-simple right- sided pleural effusion or fluid collection. With a right lower lung atelectasis or consolidation. And right paratracheal density is loculated or non-simple right-sided pleural effusion fluid. Both vascular surgery and infectious disease have been consulted. Blood cultures have been ordered. Continue with antibiotics including Levaquin and Zosyn and vancomycin patient underwent chest tube placement today 2. Pneumonia with sepsis: Patient was tachycardic, leukocytosis, and febrile on admission. Continue with antibiotics and IV fluids 3. Acute pleuritic right-sided chest pain likely related to the pneumonia. Continue current pain medication 4. Acute hypoxic respiratory failure secondary to pneumonia or possible empyema. Continue to monitor patient did require BiPAP in the morning. Currently on a nonrebreather 5. Morbid obesity 6. Essential hypertension with pressures are stable 7. Degenerative disc disease 8. Bronchitis that was treated about a week ago with Z-Avery and prednisone taper DVT prophylaxis Lovenox and GI prophylaxis Protonix
[2016-11-29 17:38] LABS: Glucose,Whole Blood 172 mg/dL (75-99)
[2016-11-29 17:59] LABS: Cholesterol,BF Source Body Fluid; Glucose, BF Source Body Fluid; LDH, Body Fluid Source Body Fluid; T. Protein, Body Fluid Source Body Fluid; Total Protein, Body Fluid 4800 mg/dL
--- NOTE | 2016-11-29 23:25 | P.PN ---
Subjective Principal diagnosis: pneumonia shortness of breath 56-year-old male who has a known history of obesity and hypertension presents to the emergency center because of a week history of increasing illness. Approximately a week ago he had an acute bout of bronchitis. He felt very poorly and was seen by his primary care physician. He received a course of azithromycin and a medrol Dosepak. He relates that he did have some improvement of his cough and sputum production. He however is now developed the significant change of his status. Developed severe right-sided pain to his chest. Stabbing in nature. The socio- significant shortness of breath. Tachycardia. As well as a fever of 101.9. He was brought to Hospital by EMS and is now been admitted. Evidence of sepsis and was brought to the intensive care unit. He did have evidence of respiratory failure requiring BiPAP use. Also required pain medications and sedation for his significant anxiety and agitation from his shortness of breath and pain. Certainly feeling somewhat better today. Computed tomography scan failed to reveal evidence of a pulmonary embolus. But there is evidence of pneumonia and likely a right pleural effusion which could be empyema given his symptoms. The patient has now had the percutaneous drainage catheter placed into his pleural space. A large amount of purulent material has been drained. Sent to the laboratory for culture. He is feeling better today. His fevers, chills or shortness of breath have all improved. Objective - Vital Signs Vital signs: Vital Signs Temp 98.2 F 11/29/16 17:00 Pulse 88 11/29/16 22:36 Resp 21 11/29/16 20:00 BP 197/96 11/29/16 19:00 Pulse Ox 92 L 11/29/16 19:00 Intake & Output 11/29/16 11/29/16 11/30/16 06:59 18:59 06:59 Intake Total 1100 1700 20 Output Total 1195 1720 80 Balance -95 -20 -60 Weight 170.7 kg Intake: IV 1100 1100 20 Sodium Chloride 0.9% 1, 1100 1100 20 000 ml @ 100 mls/hr IV . Q10H [facility] Rx#:[id number] Intake, IV Titration 600 Amount Piperacillin-Tazobactam 3 50 .375 gm In Dextrose/Water 1 50ml.bag @ 12.5 mls/hr IVPB Q8HR [facility] Rx#: [id number] Vancomycin 2,250 mg In 50 Sodium Chloride 0.9% 500 ml @ 167 mls/hr IVPB Q12HR [facility] Rx#:[id number] Vancomycin 2,500 mg In 500 Sodium Chloride 0.9% 500 ml @ 167 mls/hr IVPB ONCE ONE Rx#:[id number] Output: Chest Tube Drainage 600 Pleural Catheter Right 600 Mid-Axillary Chest Urine 1195 1120 80 Other: Voiding Method Indwelling Catheter Indwelling Catheter Indwelling Catheter - Exam Pleasant obese 56-year-old male whois now much more comfortable. Pleural catheter is in place. HEENT: Anicteric conjunctiva are pink and moist nasal mucosa grossly intact without significant lesions, there is no thrush. Neck: The neck is supple without significant lymphadenopathy or thyromegaly. Lungs: Symmetrical air entry. Expiratory wheeze. Crackles at the right base. A few bronchial sounds at the right base. No significant percussion tenderness to the right chest. No significant egophony be appreciated Heart: Regular rate and rhythm with an audible S1-S2, no S3 no S4. There is no significant murmur click or rub, PMI was nondisplaced. Abdomen: Obese Positive bowel sounds soft and nontender without palpable masses or organomegaly. There was no guarding or rebound. Extremities: The upper extremities have excellent pulses they are symmetric, no significant petechiae or telangiectasia. No splinter hemorrhages were noted. The lower extremities are free from significant edema. The peripheral pulses were 2+ and symmetric. Neuro: Awake alert oriented to person place and time. There are no acute new gross focal sensory motor deficits. - Labs CBC & Chem 7: 11/29/16 04:40 11/29/16 04:34 Labs: Abnormal Lab Results - Last 24 Hours (Table) 11/29/16 11/29/16 11/29/16 Range/Units 00:05 04:34 04:40 WBC 21.4 H (3.8-10.6) k/uL RBC 4.01 L (4.30-5.90) m/uL Hgb 12.9 L (13.0-17.5) gm/dL Neutrophils # 20.2 H (1.3-7.7) k/uL Lymphocytes # 0.7 L (1.0-4.8) k/uL Creatinine 0.60 L (0.66-1.25) mg/dL Glucose 135 H (74-99) mg/dL POC Glucose (mg/dL) 167 H (75-99) mg/dL Calcium 8.3 L (8.4-10.2) mg/dL Magnesium 2.7 H (1.6-2.3) mg/dL 11/29/16 11/29/16 Range/Units 12:20 17:36 WBC (3.8-10.6) k/uL RBC (4.30-5.90) m/uL Hgb (13.0-17.5) gm/dL Neutrophils # (1.3-7.7) k/uL Lymphocytes # (1.0-4.8) k/uL Creatinine (0.66-1.25) mg/dL Glucose (74-99) mg/dL POC Glucose (mg/dL) 126 H 172 H (75-99) mg/dL Calcium (8.4-10.2) mg/dL Magnesium (1.6-2.3) mg/dL Microbiology - Last 24 Hours (Table) 11/27/16 14:06 Blood Culture - Preliminary Blood No Growth after 48 hours 11/29/16 11:35 Gram Stain - Preliminary Pleural Fluid Body Fluid Culture - Preliminary 11/29/16 11:35 Acid Fast Bacilli Culture - Preliminary Lung Aspirate - Right 11/29/16 11:35 Fungal Culture - Preliminary Lung Aspirate - Right 11/27/16 23:00 Urine Culture - Final Urine,Catheterized 11/28/16 11:20 Gram Stain - Final Sputum Sputum Culture - Final Laboratory Results WBC 21.4 k/uL (3.8-10.6) H 11/29/16 04:40 RBC 4.01 m/uL (4.30-5.90) L 11/29/16 04:40 Hgb 12.9 gm/dL (13.0-17.5) L 11/29/16 04:40 Hct 39.9 % (39.0-53.0) 11/29/16 04:40 MCV 99.3 fL (80.0-100.0) 11/29/16 04:40 MCH 32.1 pg (25.0-35.0) 11/29/16 04:40 MCHC 32.3 g/dL (31.0-37.0) 11/29/16 04:40 RDW 13.5 % (11.5-15.5) 11/29/16 04:40 Plt Count 240 k/uL (150-450) 11/29/16 04:40 Neutrophils % 95 % 11/29/16 04:40 Neutrophils % (Manual) 90.0 % 11/27/16 14:06 Lymphocytes % 3 % 11/29/16 04:40 Lymphocytes % (Manual) 7.0 % 11/27/16 14:06 Monocytes % 2 % 11/29/16 04:40 Monocytes % (Manual) 3.0 % 11/27/16 14:06 Eosinophils % 0 % 11/29/16 04:40 Basophils % 0 % 11/29/16 04:40 Neutrophils # 20.2 k/uL (1.3-7.7) H 11/29/16 04:40 Neutrophils # (Manual) 23.2 k/uL (1.3-7.7) H 11/27/16 14:06 Lymphocytes # 0.7 k/uL (1.0-4.8) L 11/29/16 04:40 Lymphocytes # (Manual) 1.8 k/uL (1.0-4.8) 11/27/16 14:06 Monocytes # 0.4 k/uL (0-1.0) 11/29/16 04:40 Monocytes # (Manual) 0.8 k/uL (0-1.0) 11/27/16 14:06 Eosinophils # 0.0 k/uL (0-0.7) 11/29/16 04:40 Basophils # 0.0 k/uL (0-0.2) 11/29/16 04:40 Nucleated RBCs 0 /100 WBC (0-0) 11/27/16 14:06 RBC Morphology Normal 11/27/16 14:06 PT 11.4 sec (9.0-12.0) 11/27/16 20:18 INR 1.1 (<1.1) 11/27/16 20:18 APTT 28.9 sec (22.0-30.0) 11/27/16 20:18 D-Dimer 0.80 mg/L FEU (<0.60) H 11/27/16 20:18 Sample Site LRAD 11/28/16 05:59 ABG pH 7.38 (7.35-7.45) 11/28/16 05:59 ABG pCO2 40 mmHg (35-45) 11/28/16 05:59 ABG pO2 84 mmHg (83-108) 11/28/16 05:59 ABG HCO3 23 mmol/L (21-25) 11/28/16 05:59 ABG Total CO2 24 mmol/L (19-24) 11/28/16 05:59 ABG O2 Saturation 96.0 % (94-97) 11/28/16 05:59 ABG Base Excess -1.4 mmol/L 11/28/16 05:59 FiO2 100 % 11/28/16 05:59 Sodium 138 mmol/L (137-145) 11/29/16 04:34 Potassium 4.3 mmol/L (3.5-5.1) 11/29/16 04:34 Chloride 106 mmol/L (98-107) 11/29/16 04:34 Carbon Dioxide 22 mmol/L (22-30) 11/29/16 04:34 Anion Gap 10 mmol/L 11/29/16 04:34 BUN 20 mg/dL (9-20) 11/29/16 04:34 Creatinine 0.60 mg/dL (0.66-1.25) L 11/29/16 04:34 Est GFR (MDRD) Af Amer >60 (>60 ml/min/1.73 sqM) 11/29/16 04:34 Est GFR (MDRD) Non-Af >60 (>60 ml/min/1.73 sqM) 11/29/16 04:34 Glucose 135 mg/dL (74-99) H 11/29/16 04:34 POC Glucose (mg/dL) 172 mg/dL (75-99) H 11/29/16 17:36 POC Glu [employer] Marilou Saini 11/29/16 17:[address] Glu mg/dL 123 mg/dL 11/28/16 05:08 Hemoglobin A1c 5.9 % (4.2-6.1) 11/28/16 05:08 Plasma Lactic Acid Jaskaran 1.3 mmol/L (0.7-2.0) 11/27/16 20:14 Calcium 8.3 mg/dL (8.4-10.2) L 11/29/16 04:34 Ionized Calcium Елена 4.9 mg/dL (4.5-5.3) 11/27/16 20:18 Phosphorus 3.4 mg/dL (2.5-4.5) 11/29/16 04:34 Magnesium 2.7 mg/dL (1.6-2.3) H 11/29/16 04:34 Total Bilirubin 1.0 mg/dL (0.2-1.3) 11/27/16 20:18 AST 22 U/L (17-59) 11/27/16 20:18 ALT 27 U/L (21-72) 11/27/16 20:18 Alkaline Phosphatase 67 U/L (38-126) 11/27/16 20:18 Total Creatine Kinase 96 U/L (55-170) 11/27/16 14:06 CK-MB (CK-2) 5.9 ng/mL (0.0-2.4) H* 11/27/16 20:18 CK-MB (CK-2) Rel Index 7.3 11/27/16 14:06 Troponin I <0.012 ng/mL (0.000-0.034) 11/27/16 20:18 NT-Pro-B Natriuret Pep 97 pg/mL 11/27/16 14:06 Total Protein 6.7 g/dL (6.3-8.2) 11/27/16 20:18 Albumin 3.8 g/dL (3.5-5.0) 11/27/16 20:18 Amylase 35 U/L (30-110) 11/27/16 20:18 Lipase 94 U/L (23-300) 11/27/16 20:18 Urine Color Yellow 11/27/16 23:00 Urine Appearance Clear (Clear) 11/27/16 23:00 Urine pH 5.5 (5.0-8.0) 11/27/16 23:00 Ur Specific [place] 1.016 (1.001-1.035) 11/27/16 23:00 Urine Protein Negative (Negative) 11/27/16 23:00 Urine Glucose (UA) Negative (Negative) 11/27/16 23:00 Urine Ketones Negative (Negative) 11/27/16 23:00 Urine Blood Negative (Negative) 11/27/16 23:00 Urine Nitrite Negative (Negative) 11/27/16 23:00 Urine Bilirubin 1+ (Negative) H 11/27/16 23:00 Urine Urobilinogen <2.0 mg/dL (<2.0) 11/27/16 23:00 Ur Leukocyte Esterase Negative (Negative) 11/27/16 23:00 Fluid Source 11/29/16 11:35 Fluid Appearance Cloudy 11/29/16 11:35 Fluid RBC 6500 /uL 11/29/16 11:35 Fluid Nucleated Cells 2100 /uL 11/29/16 11:35 Fluid Polynuclear WBCs 90 % 11/29/16 11:35 Fluid Mononuclear WBCs 10 % 11/29/16 11:35 Urine Legionella Ag Not detected (Not detected) 11/28/16 11:45 Microbiology 11/27/16 14:06 Blood Blood Culture - Preliminary No Growth after 48 hours 11/29/16 11:35 Pleural Fluid Gram Stain - Preliminary 11/29/16 11:35 Pleural Fluid Body Fluid Culture - Preliminary 11/29/16 11:35 Lung Aspirate - Right Acid Fast Bacilli Culture - Preliminary 11/29/16 11:35 Lung Aspirate - Right Fungal Culture - Preliminary 11/27/16 23:00 Urine,Catheterized Urine Culture - Final 11/28/16 11:20 Sputum Gram Stain - Final 11/28/16 11:20 Sputum Sputum Culture - Final - Imaging and Cardiology Chest x-ray: image reviewed (pleural catheter, improved effusion) Assessment and Plan (1) Acute respiratory failure with hypoxia Narrative/Plan: 56-year-old male presents to Hospital significant shortness of breath cough or sputum production and severe right-sided chest pain. Imaging studies reveal evidence of sher pneumonia and likely fluid collection and possible empyema but no pulmonary embolus. Receiving extensive antibiotic therapy at this time all cultures are process with piperacillin tazobactam and Levaquin with concerns to gram-negative pneumonia. The patient is no significant alcohol user and aspiration pneumonia is not a concern at this time. Could also have routine Streptococcus pneumoniae with results pleural effusion which is common and potential empyema. Case discussed with cardio thoracic surgery. Patient has had percutaneous drainage of the empyema. Pleural catheter remains in place connected to suction. Patient shows marked improvement. Cultures are in process and will further direct antibiotic therapy severe leukocytosis due to the significant sepsis and steroid use. Pain is much improved. Status: Acute (2) Morbid obesity with BMI of 50.0-59.9, adult Status: Acute (3) Gram-negative pneumonia Status: Acute (4) Empyema lung Status: Acute
[2016-11-30] MEDS: methylPREDNISolone SOD SUCCI 125 MG/2 ML VIAL IV SCH ×4 (00:39→17:27)
[2016-11-30] MEDS: PIPERACILLIN-TAZOBACTAM 3.375 GM in DEXTROSE/WATER 1 50ML.BAG IVPB SCH ×3 (00:41→16:42)
[2016-11-30] MEDS: INSULIN LISPRO (humaLOG) 300 UNIT/3 ML VIAL SQ SCH ×4 (00:41→17:28)
[2016-11-30 00:42] LABS: Glucose,Whole Blood 141 mg/dL (75-99)
[2016-11-30] MEDS ORDERED: MENTHOL (NICE) LOZENGE MUCOUS MEM PRN (04:33)
[2016-11-30] MEDS: SODIUM CHLORIDE 0.9% 1,000 ML IV SCH ×3 (04:59→22:34)
[2016-11-30] MEDS: HYDROmorphone 1 MG/ML 1 ML SYRINGE IVP PRN ×4 (05:59→20:54)
[2016-11-30 06:25] LABS: Glucose,Whole Blood 126 mg/dL (75-99)
[2016-11-30 07:46] LABS: Basophils % (A) 0 %; CH 31.1; CHCM 31.8; Eosinophils # (A) 0.1 k/uL (0-0.7); Eosinophils % (A) 0 %; HCT 41.8 % (39.0-53.0); HDW 2.18; HGB 13.6 gm/dL (13.0-17.5); Luc # (Auto) 0.07; Luc % (Auto) 0; Lymphocytes # (A) 0.9 k/uL (1.0-4.8); Lymphocytes % (A) 4 %; MCH 32.1 pg (25.0-35.0); MCHC 32.6 g/dL (31.0-37.0); MCV 98.6 fL (80.0-100.0); Mean Platelet Volume 6.8; Monocytes # (A) 0.3 k/uL (0-1.0); Monocytes % (A) 2 %; Neutrophils # (A) 19.1 k/uL (1.3-7.7); Neutrophils % (A) 94 %; RBC 4.24 m/uL (4.30-5.90); RDW 13.5 % (11.5-15.5); WBC 20.4 k/uL (3.8-10.6); WBC (Perox) 20.43
[2016-11-30] MEDS ORDERED: VANCOMYCIN TROUGH DUE 1 EACH MISC MISCELLANE ONE (08:00)
--- NOTE | 2016-11-30 08:15 | XR ---
EXAMINATION TYPE: XR chest 1V DATE OF EXAM: 11/30/2016 7:09 AM COMPARISON: 11/29/2016 HISTORY: 56 year-old male shortness of breath TECHNIQUE: Single frontal view of the chest is obtained. FINDINGS: A pleural catheter is subtly seen peripheral aspect of the lower right chest. The marker is located o utside of the thoracic cavity. This continued cardiomegaly and similar widened appearance to the supe rior mediastinum likely in part due to medial loculation of pleural fluid on the right. Interval decr ease in size of the patient's moderate right pleural effusion with patchy opacity here. Heart is enla rged and lung volumes are low. IMPRESSION: 1. Right-sided pleural catheter has been pulled back with the marker located outside the thoracic cav ity. The tip of the catheter is not well seen due to patient's large body habitus. Correlate for func tioning of the catheter. 2. Decreasing right pleural effusion. Loculated effusion medial right upper lung remains widening the superior mediastinum. 3. Hypoventilatory changes and cardiomegaly.
[2016-11-30 09:18] LABS: Anion Gap 6 mmol/L; Blood Urea Nitrogen 23 mg/dL (9-20); Calcium 8.2 mg/dL (8.4-10.2); Carbon Dioxide 28 mmol/L (22-30); Chloride 107 mmol/L (98-107); Glucose 145 mg/dL (74-99); Non-African American GFR(MDRD) >60 (>60 ml/min/1.73 sqM); Phosphorous 2.8 mg/dL (2.5-4.5); Potassium 4.6 mmol/L (3.5-5.1); Sodium 141 mmol/L (137-145)
[2016-11-30] MEDS: IPRATROPIUM-ALBUTEROL 3 ML NEB INHALATION SCH ×4 (09:31→21:13)
[2016-11-30] MEDS: LORazepam 2 MG/ML SYRINGE IV PRN ×3 (10:30→20:53)
[2016-11-30] MEDS: HYDROCHLOROTHIAZIDE 12.5 MG CAP PO SCH (11:00)
[2016-11-30] MEDS: LISINOPRIL 20 MG TAB PO SCH (11:00)
[2016-11-30] MEDS: ENOXAPARIN 40 MG/0.4 ML SYRINGE SQ SCH (11:00)
[2016-11-30] MEDS: VANCOMYCIN 2,250 MG in SODIUM CHLORIDE 0.9% 500 ML IVPB SCH ×2 (11:00→20:52)
[2016-11-30] MEDS: DOCUSATE 100 MG CAP PO SCH ×2 (11:00→21:28)
[2016-11-30] MEDS: PANTOPRAZOLE 40 MG TABLET PO SCH (11:02)
--- NOTE | 2016-11-30 11:21 | P.PN ---
Progress Note - Text Thoracic Surgery Nursing POD: #1, insertion of pigtail catheter by interventional radiology Patient awake and alert, no distress noted, no specific complaints. Vital Signs: Afebrile , T-max is 98.2F Vital Signs - 24 hr 11/29/16 11/29/16 11/29/16 11:34 12:00 12:23 Temperature 98.1 F Pulse Rate 87 83 Pulse Rate [ 103 H Right] Respiratory 30 H Rate Blood Pressure 141/81 O2 Sat by Pulse 93 L 93 L Oximetry 11/29/16 11/29/16 11/29/16 12:36 13:00 14:00 Temperature Pulse Rate 87 82 88 Pulse Rate [ Right] Respiratory 20 22 Rate Blood Pressure 177/81 165/80 O2 Sat by Pulse 94 L 91 L Oximetry 11/29/16 11/29/16 11/29/16 15:00 16:00 17:00 Temperature 98.2 F Pulse Rate 81 84 93 Pulse Rate [ 103 H Right] Respiratory 29 H 28 H 22 Rate Blood Pressure 143/80 155/80 153/107 O2 Sat by Pulse 93 L 93 L 93 L Oximetry 11/29/16 11/29/16 11/29/16 18:00 19:00 20:00 Temperature 97.5 F L Pulse Rate 86 93 84 Pulse Rate [ Right] Respiratory 36 H 34 H 29 H Rate Blood Pressure 161/82 197/96 161/74 O2 Sat by Pulse 93 L 92 L 91 L Oximetry 11/29/16 11/29/16 11/29/16 21:00 22:00 22:20 Temperature Pulse Rate 88 90 87 Pulse Rate [ Right] Respiratory 29 H 27 H Rate Blood Pressure 164/54 114/77 O2 Sat by Pulse 92 L 92 L Oximetry 11/29/16 11/29/16 11/30/16 22:36 23:00 00:00 Temperature Pulse Rate 88 83 73 Pulse Rate [ Right] Respiratory 30 H 20 Rate Blood Pressure 128/65 109/62 O2 Sat by Pulse 91 L 98 Oximetry 11/30/16 11/30/16 11/30/16 01:00 02:00 03:00 Temperature Pulse Rate 68 62 62 Pulse Rate [ Right] Respiratory 13 16 18 Rate Blood Pressure 129/78 135/75 119/77 O2 Sat by Pulse 96 98 98 Oximetry 11/30/16 11/30/16 11/30/16 03:21 04:00 05:00 Temperature Pulse Rate 59 L 73 Pulse Rate [ Right] Respiratory 20 18 25 H Rate Blood Pressure 123/84 153/75 O2 Sat by Pulse 96 94 L Oximetry 11/30/16 11/30/16 11/30/16 06:00 07:00 08:00 Temperature Pulse Rate 79 85 Pulse Rate [ 75 Right] Respiratory 18 30 H 30 H Rate Blood Pressure 146/90 141/87 O2 Sat by Pulse 95 92 L Oximetry 11/30/16 11/30/16 09:35 09:45 Temperature Pulse Rate 85 85 Pulse Rate [ Right] Respiratory Rate Blood Pressure O2 Sat by Pulse 92 L Oximetry Labs: Short CBC 11/30/16 Range/Units 07:27 WBC 20.4 H (3.8-10.6) k/uL Hgb 13.6 (13.0-17.5) gm/dL Hct 41.8 (39.0-53.0) % Plt Count 303 (150-450) k/uL Neutrophils # 19.1 H (1.3-7.7) k/uL BMP 11/30/16 07:27 Sodium 141 Potassium 4.6 Chloride 107 Carbon Dioxide 28 BUN 23 H Creatinine 0.68 Glucose 145 H Calcium 8.2 L Intake & Output 11/29/16 11/30/16 11/30/16 22:59 06:59 14:59 Intake Total 1270 850 400 Output Total 1110 775 245 Balance 160 75 155 Weight 173.2 kg Intake: IV 1220 850 100 Piperacillin-Tazobactam 3 50 .375 gm In Dextrose/Water 1 50ml.bag @ 12.5 mls/hr IVPB Q8HR [facility] Rx#: [id number] Sodium Chloride 0.9% 1, 720 800 100 000 ml @ 100 mls/hr IV . Q10H [facility] Rx#:[id number] Vancomycin 2,250 mg In 500 Sodium Chloride 0.9% 500 ml @ 167 mls/hr IVPB Q12HR [facility] Rx#:[id number] Intake, IV Titration 50 Amount Vancomycin 2,250 mg In 50 Sodium Chloride 0.9% 500 ml @ 167 mls/hr IVPB Q12HR [facility] Rx#:[id number] Oral 300 Output: Chest Tube Drainage 250 170 Pleural Catheter Right 250 170 Mid-Axillary Chest Urine 860 775 75 Other: Voiding Method Indwelling Catheter Indwelling Catheter Active Medications Acetaminophen (Tylenol Tab) 1,000 mg PO Q6HR PRN PRN Reason: Fever and/ or Mild Pain Last Admin: 11/28/16 08:57 Dose: 1,000 mg Albuterol/Ipratropium (Duoneb 0.5 Mg-3 Mg/3 Ml Soln) 3 ml INHALATION RT-QID [facility] Last Admin: 11/30/16 09:31 Dose: 3 ml Docusate Sodium (Colace) 100 mg PO BID [facility] Last Admin: 11/30/16 11:00 Dose: 100 mg Enoxaparin Sodium (Lovenox) 40 mg SQ DAILY [facility] Last Admin: 11/30/16 11:00 Dose: 40 mg Hydrochlorothiazide (Hydrodiuril) 12.5 mg PO DAILY [facility] Last Admin: 11/30/16 11:00 Dose: 12.5 mg Hydromorphone HCl (Dilaudid) 1 mg IVP Q3HR PRN PRN Reason: Pain Last Admin: 11/30/16 10:28 Dose: 1 mg Piperacillin/Tazobactam/ (Dextrose 3.375 gm/ IV Solution) 50 mls @ 12.5 mls/hr IVPB Q8HR [facility] Stop: 12/07/16 00:01 Last Admin: 11/30/16 11:01 Dose: 12.5 mls/hr Sodium Chloride (Saline 0.9%) 1,000 mls @ 100 mls/hr IV .Q10H [facility] Last Admin: 11/30/16 04:59 Dose: 100 mls/hr Vancomycin HCl 2,250 mg/ (Sodium Chloride) 500 mls @ 167 mls/hr IVPB Q12HR [facility] Last Admin: 11/30/16 11:00 Dose: 167 mls/hr Ibuprofen (Motrin) 600 mg PO TID PRN PRN Reason: Fever Insulin Human Lispro (Humalog) 0 unit SQ Q6H [facility] PRN Reason: Protocol Last Admin: 11/30/16 06:24 Dose: Not Given Levofloxacin (Levaquin) 750 mg PO Q24H [facility] Stop: 12/10/16 14:01 Lisinopril (Zestril) 20 mg PO DAILY [facility] Last Admin: 11/30/16 11:00 Dose: 20 mg Lorazepam (Ativan) 1 mg IV Q4HR PRN PRN Reason: Anxiety Last Admin: 11/30/16 10:30 Dose: 1 mg Menthol (Nice Cough Drops) 1 each MUCOUS MEM Q2H PRN PRN Reason: Cough Last Admin: 11/30/16 04:59 Dose: 1 each Methylprednisolone Sodium Succinate (Solu-Medrol) 60 mg IV Q6HR [facility] Last Admin: 11/30/16 06:24 Dose: 60 mg Miscellaneous Information (Pneumonia Protocol Utilized) 1 each PO ONCE PRN PRN Reason: Per Protocol Morphine Sulfate (Morphine Sulfate (Inj)) 4 mg IVP Q4HR PRN PRN Reason: Severe Pain Last Admin: 11/28/16 09:27 Dose: 4 mg Naloxone HCl (Narcan) 0.2 mg IV Q2M PRN PRN Reason: Opioid Reversal Pantoprazole Sodium (Protonix) 40 mg PO AC-BRKFST [facility] Last Admin: 11/30/16 11:02 Dose: Not Given Plan: Pigtail catheter continues to drain serous fluid. Watch serial chest x-rays Will follow with you
[2016-11-30 11:55] LABS: Glucose,Whole Blood 179 mg/dL (75-99)
--- NOTE | 2016-11-30 14:27 | P.PN ---
Subjective 56-year-old obese male patient, who got moved to the intensive care unit yesterday because of worsening shortness of breath and bilateral pneumonia. This patient was in a good state of health until approximately 10 days ago when he developed symptoms of acute bronchitis. He contacted his primary care physician, Dr. Farrar, we'll give this patient a Z-Avery and a Medrol Dosepak. The patient also has albuterol solution for nebulizer as his has bronchial asthma. He did some albuterol treatment and he felt better. He completed his antibiotic course 6 days ago. Around 3 days ago he started developing severe acute pleuritic right-sided chest pain. The pain was severe to the point where the patient was unable to breathe 10. He felt hot and cold and there was no documented temperature. He became progressively short of breath and for that reason he was brought into the hospital. I reviewed a series of chest x-rays that were done since admission. There is obvious progression to the point where the patient has developed severe consolidation of the right lower lobe in addition to some infiltration of the left lower lobe and possibly a pleural effusion on the right is suspected. Empyema cannot be completely ruled out. The lung volumes are small. The patient has no hemoptysis. He is coughing out minimal amount of sputum. His white cell count is elevated. Overnight he was placed on a BiPAP at a pressure of 10 over 5 and currently is on 100% nonrebreather facemask with an oxygen saturation of 95%. He has no change in mental status. No previous pneumonias. He has remote history of MRSA infection in his right foot which got treated. No aspiration. No travel history. No smoking. No 70 chronic lung disease. He has features of obstructive sleep apnea however this has not been demonstrated or studies further. He is currently on a combination of Zosyn and Levaquin. On 11/29/2016 the patient is being seen in follow-up. The patient has an extensive right lung pneumonia with multiloculated right-sided pleural effusion. The patient was having severe pleurisy. The patient was covered with broad-spectrum antibiotics including a combination of Zosyn, Levaquin and vancomycin. The CAT scan of the chest that was done earlier was reviewed and the patient has a moderate-sized right-sided pleural effusion collection patient has not completely day or and there is obvious loculation. There is also compressive atelectasis of the right lung base. Based on all this, I discussed the case with the cardiac thoracic surgeon and I sent this patient to interventional radiology where a pigtail catheter was inserted to the right lung and a total of 250 mL of fluid has been aspirated already at the pigtail catheter is draining into the pleural VAC. Clinically the patient is doing well. He is on 15 L of oxygen nasal cannula. White cell count is still elevated. First is improved. No hypotension. No nausea. No vomiting. No other complaints including the absence of any mental status change. Cultures of been all negative thus far. Chest x-ray from earlier this morning shows opacification of lower two third of the right lung field. On 11/30/2016 the patient is feeling much better. The right-sided pleuritic chest and is pretty much recovered. Despite the x-ray reports, the chest tube on the right side is still in place and is draining adequate amount of fluid in the right lung has expanded nicely. Hemodynamically stable. The patient is down to 4ls of oxygen nasal cannula. White cell count is improving. No evidence of any empyema at this point. Remains on broad-spectrum antibiotics. Hemodynamically stable. Objective - Vital Signs Vital signs: Vital Signs Temp 97.8 F 11/30/16 11:58 Pulse 70 11/30/16 12:00 Resp 18 11/30/16 12:00 BP 134/74 11/30/16 11:58 Pulse Ox 92 L 11/30/16 11:58 Intake & Output 11/29/16 11/30/16 11/30/16 18:59 06:59 18:59 Intake Total 1700 1670 400 Output Total 1720 1165 245 Balance -20 505 155 Weight 173.2 kg Intake: IV 1100 1670 100 Piperacillin-Tazobactam 3 50 .375 gm In Dextrose/Water 1 50ml.bag @ 12.5 mls/hr IVPB Q8HR [facility] Rx#: [id number] Sodium Chloride 0.9% 1, 1100 1120 100 000 ml @ 100 mls/hr IV . Q10H [facility] Rx#:[id number] Vancomycin 2,250 mg In 500 Sodium Chloride 0.9% 500 ml @ 167 mls/hr IVPB Q12HR [facility] Rx#:[id number] Intake, IV Titration 600 Amount Piperacillin-Tazobactam 3 50 .375 gm In Dextrose/Water 1 50ml.bag @ 12.5 mls/hr IVPB Q8HR [facility] Rx#: [id number] Vancomycin 2,250 mg In 50 Sodium Chloride 0.9% 500 ml @ 167 mls/hr IVPB Q12HR [facility] Rx#:[id number] Vancomycin 2,500 mg In 500 Sodium Chloride 0.9% 500 ml @ 167 mls/hr IVPB ONCE [facility] Rx#:[id number] Oral 300 Output: Chest Tube Drainage 600 170 Pleural Catheter Right 600 170 Mid-Axillary Chest Urine 1120 1165 75 Other: Voiding Method Indwelling Catheter Indwelling Catheter - Exam Morbid obesity, and mild degree of respiratory distress, not using accessory muscles of breathing.Head exam was generally normal. There was no scleral icterus or corneal arcus. Mucous membranes were moist.Neck was supple and without jugular venous distension, thyromegaly, or carotid bruits. Carotids were easily palpable bilaterally. There was no adenopathy. There is significant crowding of the posterior oropharynx with a Mallampati class IV. Lung sounds are markedly diminished in lung bases bilaterally especially in the right lung base and the patient has a pigtail catheter within the right lateral chest area attached to a Pleur-evac. No wheezes.Cardiac exam revealed the PMI to be normally situated and sized. The rhythm was regular and no extrasystoles were noted during several minutes of auscultation. The first and second heart sounds were normal and physiologic splitting of the second heart sound was noted. There were no murmurs, rubs, clicks, or gallops.Abdominal exam revealed normal bowel sounds. The abdomen was soft, non-tender, and without masses, organomegaly, or appreciable enlargement of the abdominal aorta.Examination of the extremities revealed easily palpable radial, femoral and pedal pulses. There was no cyanosis, clubbing or edema. - Labs CBC & Chem 7: 11/30/16 07:27 11/30/16 07:27 Labs: Abnormal Lab Results - Last 24 Hours (Table) 11/29/16 11/30/16 11/30/16 Range/Units 17:36 00:40 06:23 WBC (3.8-10.6) k/uL RBC (4.30-5.90) m/uL Neutrophils # (1.3-7.7) k/uL Lymphocytes # (1.0-4.8) k/uL BUN (9-20) mg/dL Glucose (74-99) mg/dL POC Glucose (mg/dL) 172 H 141 H 126 H (75-99) mg/dL Calcium (8.4-10.2) mg/dL Magnesium (1.6-2.3) mg/dL 11/30/16 11/30/16 11/30/16 Range/Units 07:27 07:27 11:53 WBC 20.4 H (3.8-10.6) k/uL RBC 4.24 L (4.30-5.90) m/uL Neutrophils # 19.1 H (1.3-7.7) k/uL Lymphocytes # 0.9 L (1.0-4.8) k/uL BUN 23 H (9-20) mg/dL Glucose 145 H (74-99) mg/dL POC Glucose (mg/dL) 179 H (75-99) mg/dL Calcium 8.2 L (8.4-10.2) mg/dL Magnesium 3.0 H (1.6-2.3) mg/dL Microbiology - Last 24 Hours (Table) 11/29/16 11:35 Gram Stain - Preliminary Pleural Fluid Body Fluid Culture - Preliminary 11/27/16 14:06 Blood Culture - Preliminary Blood No Growth after 48 hours 11/29/16 11:35 Acid Fast Bacilli Culture - Preliminary Lung Aspirate - Right 11/29/16 11:35 Fungal Culture - Preliminary Lung Aspirate - Right 11/27/16 23:00 Urine Culture - Final Urine,Catheterized Assessment and Plan Plan: Assessment 1 acute bilateral pneumonia with interval progression and worsening in the consolidation of the right lower lobe with possibly development of a loculated right-sided pleural effusion with right basilar compressive atelectasis. The patient is status post pigtail catheter insertion with adequate evacuation of the right-sided pleural effusion and the tube is still draining for now and there has been significant improvement and x-ray findings. 2 acute pleuritic right-sided chest pain secondary to above, improving 3 acute hypoxic respiratory failure , improving 4 acute BiPAP dependent respiratory failure, recovered 5 leukocytosis, improving 6 morbid obesity 7 hypertension 8 degenerative arthritis 9 bronchitis that was treated approximately a week ago on outpatient basis with a combination of Zithromax and prednisone burst taper Plan Keep the pigtail catheter in place. Repeat chest x-ray in the morning. Continue same antibiotic coverage. Start tapering steroids as of tomorrow. Repeat CAT scan by Friday assess for any residual loculations. We'll continue to follow.
--- NOTE | 2016-11-30 15:41 | P.PN ---
Subjective patient is a 56-year-old male patient, who got moved to the intensive care unit yesterday because of worsening shortness of breath and bilateral pneumonia. This patient was in a good state of health until approximately 10 days ago when he developed symptoms of acute bronchitis. He contacted his primary care physician, Dr. Farrar, who gave him a Z-Avery and a Medrol Dosepak. Patient continued to deteriorate and presented to [facility] chest x-ray revealed evidence of pneumonia he was initially admitted to telemetry floor and subsequently transferred to intensive care unit due to worsening shortness of breath patient was initially started on BiPAP. Patient had right sided pleural effusion and empyema was suspected, he underwent chest tube placement today. Case was discussed in details with Dr. Moscoso Objective - Vital Signs Vital signs: Vital Signs Temp 97.8 F 11/30/16 11:58 Pulse 70 11/30/16 12:00 Resp 18 11/30/16 12:00 BP 134/74 11/30/16 11:58 Pulse Ox 92 L 11/30/16 11:58 Intake & Output 11/29/16 11/30/16 11/30/16 18:59 06:59 18:59 Intake Total 1700 1670 400 Output Total 1720 1165 305 Balance -20 505 95 Weight 173.2 kg Intake: IV 1100 1670 100 Piperacillin-Tazobactam 3 50 .375 gm In Dextrose/Water 1 50ml.bag @ 12.5 mls/hr IVPB Q8HR [facility] Rx#: [id number] Sodium Chloride 0.9% 1, 1100 1120 100 000 ml @ 100 mls/hr IV . Q10H [facility] Rx#:[id number] Vancomycin 2,250 mg In 500 Sodium Chloride 0.9% 500 ml @ 167 mls/hr IVPB Q12HR [facility] Rx#:[id number] Intake, IV Titration 600 Amount Piperacillin-Tazobactam 3 50 .375 gm In Dextrose/Water 1 50ml.bag @ 12.5 mls/hr IVPB Q8HR [facility] Rx#: [id number] Vancomycin 2,250 mg In 50 Sodium Chloride 0.9% 500 ml @ 167 mls/hr IVPB Q12HR [facility] Rx#:[id number] Vancomycin 2,500 mg In 500 Sodium Chloride 0.9% 500 ml @ 167 mls/hr IVPB [facility]CE [facility] Rx#:[id number] Oral 300 Output: Chest Tube Drainage 600 230 Pleural Catheter Right 600 230 Mid-Axillary Chest Urine 1120 1165 75 Other: Voiding Method Indwelling Catheter Indwelling Catheter - Exam In general patient is alert and oriented 3 in no apparent distress HEENT head normocephalic and atraumatic Neck is supple no JVD no goiter no lymphadenopathy Chest exam reveals tachypnea with scattered crackles in both lung [place] no wheezing Cardiac exam reveals tachycardia with S1 and S2 regular rhythm no gallops no murmurs Abdomen is soft nontender no organomegaly Extremity exam reveals no edema no cyanosis or clubbing Neurological examination reveals no focal deficit Skin exam reveals no open ulcers no rashes or ecchymoses - Labs CBC & Chem 7: 11/30/16 07:27 11/30/16 07:27 Labs: Abnormal Lab Results - Last 24 Hours (Table) 11/29/16 11/30/16 11/30/16 Range/Units 17:36 00:40 06:23 WBC (3.8-10.6) k/uL RBC (4.30-5.90) m/uL Neutrophils # (1.3-7.7) k/uL Lymphocytes # (1.0-4.8) k/uL BUN (9-20) mg/dL Glucose (74-99) mg/dL POC Glucose (mg/dL) 172 H 141 H 126 H (75-99) mg/dL Calcium (8.4-10.2) mg/dL Magnesium (1.6-2.3) mg/dL 11/30/16 11/30/16 11/30/16 Range/Units 07:27 07:27 11:53 WBC 20.4 H (3.8-10.6) k/uL RBC 4.24 L (4.30-5.90) m/uL Neutrophils # 19.1 H (1.3-7.7) k/uL Lymphocytes # 0.9 L (1.0-4.8) k/uL BUN 23 H (9-20) mg/dL Glucose 145 H (74-99) mg/dL POC Glucose (mg/dL) 179 H (75-99) mg/dL Calcium 8.2 L (8.4-10.2) mg/dL Magnesium 3.0 H (1.6-2.3) mg/dL Microbiology - Last 24 Hours (Table) 11/29/16 11:35 Gram Stain - Preliminary Pleural Fluid Body Fluid Culture - Preliminary 11/27/16 14:06 Blood Culture - Preliminary Blood No Growth after 48 hours 11/29/16 11:35 Acid Fast Bacilli Culture - Preliminary Lung Aspirate - Right 11/29/16 11:35 Fungal Culture - Preliminary Lung Aspirate - Right 11/27/16 23:00 Urine Culture - Final Urine,Catheterized Assessment and Plan Plan: 1. Acute bilateral pneumonia: Chest x-ray from this morning shows worsening consolidation and pleural effusion. Case was discussed with pulmonary service. There are concerns about a possible empyema. Computed tomography scan shows no large saddle central PE. Does show a fairly moderate size non-simple right- sided pleural effusion or fluid collection. With a right lower lung atelectasis or consolidation. And right paratracheal density is loculated or non-simple right-sided pleural effusion fluid. Both vascular surgery and infectious disease have been consulted. Blood cultures have been ordered. Continue with antibiotics including Levaquin and Zosyn and vancomycin patient underwent chest tube placement today 2. Pneumonia with sepsis: Patient was tachycardic, leukocytosis, and febrile on admission. Continue with antibiotics and IV fluids 3. Acute pleuritic right-sided chest pain likely related to the pneumonia. Continue current pain medication 4. Acute hypoxic respiratory failure secondary to pneumonia or possible empyema. Continue to monitor patient did require BiPAP in the morning. Currently on a nonrebreather 5. Morbid obesity 6. Essential hypertension with pressures are stable 7. Degenerative disc disease 8. Bronchitis that was treated about a week ago with Z-Avery and prednisone taper DVT prophylaxis Lovenox and GI prophylaxis Protonix
[2016-11-30] MEDS: LEVOFLOXACIN 750 MG TAB PO SCH (15:44)
[2016-11-30 17:29] LABS: Glucose,Whole Blood 135 mg/dL (75-99)
[2016-12-01 00:08] LABS: Glucose,Whole Blood 136 mg/dL (75-99)
[2016-12-01] MEDS: PIPERACILLIN-TAZOBACTAM 3.375 GM in DEXTROSE/WATER 1 50ML.BAG IVPB SCH ×3 (00:29→18:09)
[2016-12-01] MEDS: LORazepam 2 MG/ML SYRINGE IV PRN ×5 (00:35→21:58)
[2016-12-01] MEDS: INSULIN LISPRO (humaLOG) 300 UNIT/3 ML VIAL SQ SCH ×5 (00:35→21:59)
[2016-12-01] MEDS: methylPREDNISolone SOD SUCCI 125 MG/2 ML VIAL IV SCH ×2 (00:35→06:22)
[2016-12-01] MEDS: HYDROmorphone 1 MG/ML 1 ML SYRINGE IVP PRN ×5 (00:35→18:10)
[2016-12-01] MEDS: VANCOMYCIN 2,250 MG in SODIUM CHLORIDE 0.9% 500 ML IVPB SCH ×3 (04:51→21:57)
[2016-12-01] MEDS: SODIUM CHLORIDE 0.9% 1,000 ML IV SCH ×4 (04:51→21:59)
--- NOTE | 2016-12-01 05:17 | XR ---
EXAM: XR Chest, 1 View. CLINICAL HISTORY: Reason: pigtail catheter placement TECHNIQUE: Frontal view of the chest. COMPARISON: 11/30/16. FINDINGS: The right-sided pigtail catheter is no longer identified.. No developing pneumothorax on exam that is slightly limited by the patient's overlying chin. Stable small-moderate right pleural effusion. Right greater than left base atelectasis. Suspect airway stroma. IMPRESSION: Right pleural drainage catheter no longer identified. No pneumothorax
[2016-12-01 05:53] LABS: Glucose,Whole Blood 126 mg/dL (75-99)
[2016-12-01 06:06] LABS: Basophils % (A) 0 %; CH 31.1; CHCM 31.9; Eosinophils % (A) 0 %; HDW 2.19; HGB 13.2 gm/dL (13.0-17.5); Luc # (Auto) 0.05; Luc % (Auto) 0; Lymphocytes # (A) 0.7 k/uL (1.0-4.8); Lymphocytes % (A) 5 %; MCH 31.6 pg (25.0-35.0); MCHC 32.3 g/dL (31.0-37.0); MCV 97.8 fL (80.0-100.0); Mean Platelet Volume 6.6; Monocytes # (A) 0.5 k/uL (0-1.0); Monocytes % (A) 3 %; Neutrophils % (A) 92 %; RBC 4.19 m/uL (4.30-5.90); RDW 13.4 % (11.5-15.5); WBC 15.2 k/uL (3.8-10.6); WBC (Perox) 16.62
[2016-12-01] MEDS: PANTOPRAZOLE 40 MG TABLET PO SCH (06:23)
[2016-12-01 06:34] LABS: ALT 73 U/L (21-72); AST 38 U/L (17-59); Alkaline Phosphatase 84 U/L (38-126); Anion Gap 8 mmol/L; Blood Urea Nitrogen 21 mg/dL (9-20); Calcium 8.1 mg/dL (8.4-10.2); Carbon Dioxide 25 mmol/L (22-30); Chloride 108 mmol/L (98-107); Glucose 130 mg/dL (74-99); Non-African American GFR(MDRD) >60 (>60 ml/min/1.73 sqM); Phosphorous 2.9 mg/dL (2.5-4.5); Potassium 4.7 mmol/L (3.5-5.1); Sodium 141 mmol/L (137-145); Total Bilirubin 0.7 mg/dL (0.2-1.3); Total Protein 5.4 g/dL (6.3-8.2)
[2016-12-01] MEDS: DOCUSATE 100 MG CAP PO SCH ×2 (08:07→21:58)
[2016-12-01] MEDS: ENOXAPARIN 40 MG/0.4 ML SYRINGE SQ SCH (08:07)
[2016-12-01] MEDS: HYDROCHLOROTHIAZIDE 12.5 MG CAP PO SCH (08:07)
[2016-12-01] MEDS: LISINOPRIL 20 MG TAB PO SCH (08:07)
[2016-12-01] MEDS: IPRATROPIUM-ALBUTEROL 3 ML NEB INHALATION SCH ×4 (08:29→20:54)
[2016-12-01] MEDS ORDERED: RX INFO: IV CONTRAST WAS GIVEN 1 EACH MISC MISCELLANE PRN (09:41)
[2016-12-01] MEDS ORDERED: FUROSEMIDE 10 MG/ML 4 ML VIAL IV STA (09:46)
--- NOTE | 2016-12-01 09:47 | P.PN ---
Subjective 56-year-old obese male patient, who got moved to the intensive care unit yesterday because of worsening shortness of breath and bilateral pneumonia. This patient was in a good state of health until approximately 10 days ago when he developed symptoms of acute bronchitis. He contacted his primary care physician, Dr. Farrar, we'll give this patient a Z-Avery and a Medrol Dosepak. The patient also has albuterol solution for nebulizer as his has bronchial asthma. He did some albuterol treatment and he felt better. He completed his antibiotic course 6 days ago. Around 3 days ago he started developing severe acute pleuritic right-sided chest pain. The pain was severe to the point where the patient was unable to breathe 10. He felt hot and cold and there was no documented temperature. He became progressively short of breath and for that reason he was brought into the hospital. I reviewed a series of chest x-rays that were done since admission. There is obvious progression to the point where the patient has developed severe consolidation of the right lower lobe in addition to some infiltration of the left lower lobe and possibly a pleural effusion on the right is suspected. Empyema cannot be completely ruled out. The lung volumes are small. The patient has no hemoptysis. He is coughing out minimal amount of sputum. His white cell count is elevated. Overnight he was placed on a BiPAP at a pressure of 10 over 5 and currently is on 100% nonrebreather facemask with an oxygen saturation of 95%. He has no change in mental status. No previous pneumonias. He has remote history of MRSA infection in his right foot which got treated. No aspiration. No travel history. No smoking. No 70 chronic lung disease. He has features of obstructive sleep apnea however this has not been demonstrated or studies further. He is currently on a combination of Zosyn and Levaquin. On 11/29/2016 the patient is being seen in follow-up. The patient has an extensive right lung pneumonia with multiloculated right-sided pleural effusion. The patient was having severe pleurisy. The patient was covered with broad-spectrum antibiotics including a combination of Zosyn, Levaquin and vancomycin. The CAT scan of the chest that was done earlier was reviewed and the patient has a moderate-sized right-sided pleural effusion collection patient has not completely day or and there is obvious loculation. There is also compressive atelectasis of the right lung base. Based on all this, I discussed the case with the cardiac thoracic surgeon and I sent this patient to interventional radiology where a pigtail catheter was inserted to the right lung and a total of 250 mL of fluid has been aspirated already at the pigtail catheter is draining into the pleural VAC. Clinically the patient is doing well. He is on 15 L of oxygen nasal cannula. White cell count is still elevated. First is improved. No hypotension. No nausea. No vomiting. No other complaints including the absence of any mental status change. Cultures of been all negative thus far. Chest x-ray from earlier this morning shows opacification of lower two third of the right lung field. On 11/30/2016 the patient is feeling much better. The right-sided pleuritic chest and is pretty much recovered. Despite the x-ray reports, the chest tube on the right side is still in place and is draining adequate amount of fluid in the right lung has expanded nicely. Hemodynamically stable. The patient is down to 4ls of oxygen nasal cannula. White cell count is improving. No evidence of any empyema at this point. Remains on broad-spectrum antibiotics. Hemodynamically stable. On 12/01/2016, the patient is still doing okay. He has no major respiratory distress. Unfortunately, while standing up and going to the bathroom the patient stepped on his tube and the pigtail catheter came out of his pleural space. The chest x-ray from today is still showing some residual effusion the right lung base and consolidation. The volume status however has improved. He is afebrile. He is on oxygen at 4 L per minute nasal cannula and his white cell count is dropped down to 15. He is afebrile. He is doing well. No nausea. No vomiting. No other complaints otherwise. Objective - Vital Signs Vital signs: Vital Signs Temp 97 F L 12/01/16 07:57 Pulse 68 12/01/16 08:40 Resp 18 12/01/16 08:00 BP 155/88 12/01/16 07:57 Pulse Ox 95 12/01/16 07:57 Intake & Output 11/30/16 12/01/16 12/01/16 18:59 06:59 18:59 Intake Total 2250 1450 Output Total 605 1080 Balance 1645 370 Weight 173.2 kg 177.4 kg Intake: IV 800 950 Piperacillin-Tazobactam 3 50 .375 gm In Dextrose/Water 1 50ml.bag @ 12.5 mls/hr IVPB Q8HR [facility] Rx#: [id number] Sodium Chloride 0.9% 1, 800 900 000 ml @ 100 mls/hr IV . Q10H [facility] Rx#:[id number] Intake, IV Titration 550 500 Amount Piperacillin-Tazobactam 3 50 .375 gm In Dextrose/Water 1 50ml.bag @ 12.5 mls/hr IVPB Q8HR [facility] Rx#: [id number] Vancomycin 2,250 mg In 500 Sodium Chloride 0.9% 500 ml @ 167 mls/hr IVPB Q12HR [facility] Rx#:[id number] Vancomycin 2,250 mg In 500 Sodium Chloride 0.9% 500 ml @ 167 mls/hr IVPB Q8H [facility] Rx#:[id number] Oral 900 Output: Chest Tube Drainage 230 80 Pleural Catheter Right 230 80 Mid-Axillary Chest Urine 375 1000 Other: Voiding Method Urinal Urinal Urinal # Voids 1 - Exam Morbid obesity, and mild degree of respiratory distress, not using accessory muscles of breathing.Head exam was generally normal. There was no scleral icterus or corneal arcus. Mucous membranes were moist.Neck was supple and without jugular venous distension, thyromegaly, or carotid bruits. Carotids were easily palpable bilaterally. There was no adenopathy. There is significant crowding of the posterior oropharynx with a Mallampati class IV. Lung sounds are diminished in the right lung compared to the left. The chest tube is out.. No wheezes.Cardiac exam revealed the PMI to be normally situated and sized. The rhythm was regular and no extrasystoles were noted during several minutes of auscultation. The first and second heart sounds were normal and physiologic splitting of the second heart sound was noted. There were no murmurs, rubs, clicks, or gallops.Abdominal exam revealed normal bowel sounds. The abdomen was soft, non-tender, and without masses, organomegaly, or appreciable enlargement of the abdominal aorta.Examination of the extremities revealed easily palpable radial, femoral and pedal pulses. There was no cyanosis , clubbing or edema. - Labs CBC & Chem 7: 12/01/16 05:48 12/01/16 05:48 Labs: Abnormal Lab Results - Last 24 Hours (Table) 11/30/16 11/30/16 12/01/16 Range/Units 11:53 17:28 00:06 WBC (3.8-10.6) k/uL RBC (4.30-5.90) m/uL Neutrophils # (1.3-7.7) k/uL Lymphocytes # (1.0-4.8) k/uL Chloride (98-107) mmol/L BUN (9-20) mg/dL Glucose (74-99) mg/dL POC Glucose (mg/dL) 179 H 135 H 136 H (75-99) mg/dL Calcium (8.4-10.2) mg/dL Magnesium (1.6-2.3) mg/dL ALT (21-72) U/L Total Protein (6.3-8.2) g/dL Albumin (3.5-5.0) g/dL 12/01/16 12/01/16 12/01/16 Range/Units 05:48 05:48 05:52 WBC 15.2 H (3.8-10.6) k/uL RBC 4.19 L (4.30-5.90) m/uL Neutrophils # 14.0 H (1.3-7.7) k/uL Lymphocytes # 0.7 L (1.0-4.8) k/uL Chloride 108 H (98-107) mmol/L BUN 21 H (9-20) mg/dL Glucose 130 H (74-99) mg/dL POC Glucose (mg/dL) 126 H (75-99) mg/dL Calcium 8.1 L (8.4-10.2) mg/dL Magnesium 3.0 H (1.6-2.3) mg/dL ALT 73 H (21-72) U/L Total Protein 5.4 L (6.3-8.2) g/dL Albumin 2.9 L (3.5-5.0) g/dL Microbiology - Last 24 Hours (Table) 11/30/16 04:30 Gram Stain - Preliminary Sputum 11/29/16 11:35 Acid Fast Bacilli Smear - Final Lung Aspirate - Right Acid Fast Bacilli Culture - Preliminary 11/27/16 14:06 Blood Culture - Preliminary Blood No Growth after 72 hours 11/29/16 11:35 Gram Stain - Preliminary Pleural Fluid Body Fluid Culture - Preliminary Assessment and Plan Plan: Assessment 1 acute bilateral pneumonia with interval progression and worsening in the consolidation of the right lower lobe with possibly development of a loculated right-sided pleural effusion with right basilar compressive atelectasis. The patient is status post pigtail catheter insertion with adequate evacuation of the right-sided pleural effusion and the tube drained adequately the pleural fluid and unfortunately it accidentally came out. The chest x-ray from today shows residual consolidation and effusion the right lung base and I suspect there is some residual loculation. 2 acute pleuritic right-sided chest pain secondary to above, improving 3 acute hypoxic respiratory failure , improving 4 acute BiPAP dependent respiratory failure, recovered 5 leukocytosis, improving 6 morbid obesity 7 hypertension 8 degenerative arthritis 9 bronchitis that was treated approximately a week ago on outpatient basis with a combination of Zithromax and prednisone burst taper Plan Repeat the CAT scan of the chest with contrast to assess the need for another pigtail catheter insertion. Clinically the patient is improving. The white cell count is improved. He is still on broad-spectrum antibiotics. All of the cultures of been negative. We'll review the CAT scan and will make further recommendations accordingly. Meanwhile, the cut down the IV Solu Medrol to 40 g every 12 hours and give the patient dose of Lasix 40 mg IV push. Cut down the fluids to 20 mL an hour. We will follow
[2016-12-01 12:10] LABS: Glucose,Whole Blood 118 mg/dL (75-99)
--- NOTE | 2016-12-01 12:15 | CT ---
EXAMINATION TYPE: CT chest w con DATE OF EXAM: 12/01/2016 11:11 AM COMPARISON: 11/29/2016 HISTORY: Pneumonia and loculated effusion. Chest tube removed this morning. CT DLP: 928.40 mGycm, Automated exposure control for dose reduction was used. CONTRAST: Performed injected with 100 ml mL of Omnipaque 300. TECHNIQUE: Axial images were obtained at 5 mm thick sections. Reconstructed images are reviewed on [employer] computer in the coronal plane. FINDINGS: Portion of the thyroid visualized is normal. Patchy infiltrates are through the right lung field. Some compressive atelectasis is likely at the [facility] posterior lung base. A small right pleural effusion is present. Some streak opacities at the left base. No pneumothorax is evident. No enlarged mediastinal or hilar adenopathy is evident. The ascending aorta diameter at the level o f the main pulmonary artery is 4.6 cm. The main pulmonary artery diameter at the bifurcation is 4.[address] sections are obtained through the upper abdomen. Abdomen is essentially unremarkable. IMPRESSIONS: 1. Aneurysm of the ascending thoracic aorta. 2. No pneumothorax post catheter removal. 3. Patchy infiltrates at the right base and to a lesser degree left base small right pleural effusion . Follow-up is recommended.
--- NOTE | 2016-12-01 12:48 | P.PN ---
Subjective patient is a 56-year-old male patient, who got moved to the intensive care unit yesterday because of worsening shortness of breath and bilateral pneumonia. This patient was in a good state of health until approximately 10 days ago when he developed symptoms of acute bronchitis. He contacted his primary care physician, Dr. Farrar, who gave him a Z-Avery and a Medrol Dosepak. Patient continued to deteriorate and presented to [facility] chest x-ray revealed evidence of pneumonia he was initially admitted to telemetry floor and subsequently transferred to intensive care unit due to worsening shortness of breath patient was initially started on BiPAP. Patient had right sided pleural effusion and empyema was suspected, he underwent chest tube placement today. Case was discussed in details with Dr. Moscoso Objective - Vital Signs Vital signs: Vital Signs Temp 97.5 F L 12/01/16 11:51 Pulse 72 12/01/16 11:51 Resp 20 12/01/16 11:51 BP 134/80 12/01/16 11:51 Pulse Ox 93 L 12/01/16 11:51 Intake & Output 11/30/16 12/01/16 12/01/16 18:59 06:59 18:59 Intake Total 2250 1450 450 Output Total 605 1080 600 Balance 1645 370 -150 Weight 173.2 kg 177.4 kg Intake: IV 800 950 450 Piperacillin-Tazobactam 3 50 50 .375 gm In Dextrose/Water 1 50ml.bag @ 12.5 mls/hr IVPB Q8HR [facility] Rx#: [id number] Sodium Chloride 0.9% 1, 800 900 400 000 ml @ 20 mls/hr IV . Q24H [facility] Rx#:[id number] Intake, IV Titration 550 500 Amount Piperacillin-Tazobactam 3 50 .375 gm In Dextrose/Water 1 50ml.bag @ 12.5 mls/hr IVPB Q8HR [facility] Rx#: [id number] Vancomycin 2,250 mg In 500 Sodium Chloride 0.9% 500 ml @ 167 mls/hr IVPB Q12HR [facility] Rx#:[id number] Vancomycin 2,250 mg In 500 Sodium Chloride 0.9% 500 ml @ 167 mls/hr IVPB Q8H [facility] Rx#:[id number] Oral 900 Output: Chest Tube Drainage 230 80 Pleural Catheter Right 230 80 Mid-Axillary Chest Urine 375 1000 600 Other: Voiding Method Urinal Urinal Urinal # Voids 1 - Exam In general patient is alert and oriented 3 in no apparent distress HEENT head normocephalic and atraumatic Neck is supple no JVD no goiter no lymphadenopathy Chest exam reveals tachypnea with scattered crackles in both lung [place] no wheezing Cardiac exam reveals tachycardia with S1 and S2 regular rhythm no gallops no murmurs Abdomen is soft nontender no organomegaly Extremity exam reveals no edema no cyanosis or clubbing Neurological examination reveals no focal deficit Skin exam reveals no open ulcers no rashes or ecchymoses - Labs CBC & Chem 7: 12/01/16 05:48 12/01/16 05:48 Labs: Abnormal Lab Results - Last 24 Hours (Table) 11/30/16 12/01/16 12/01/16 Range/Units 17:28 00:06 05:48 WBC 15.2 H (3.8-10.6) k/uL RBC 4.19 L (4.30-5.90) m/uL Neutrophils # 14.0 H (1.3-7.7) k/uL Lymphocytes # 0.7 L (1.0-4.8) k/uL Chloride (98-107) mmol/L BUN (9-20) mg/dL Glucose (74-99) mg/dL POC Glucose (mg/dL) 135 H 136 H (75-99) mg/dL Calcium (8.4-10.2) mg/dL Magnesium (1.6-2.3) mg/dL ALT (21-72) U/L Total Protein (6.3-8.2) g/dL Albumin (3.5-5.0) g/dL 12/01/16 12/01/16 12/01/16 Range/Units 05:48 05:52 11:54 WBC (3.8-10.6) k/uL RBC (4.30-5.90) m/uL Neutrophils # (1.3-7.7) k/uL Lymphocytes # (1.0-4.8) k/uL Chloride 108 H (98-107) mmol/L BUN 21 H (9-20) mg/dL Glucose 130 H (74-99) mg/dL POC Glucose (mg/dL) 126 H 118 H (75-99) mg/dL Calcium 8.1 L (8.4-10.2) mg/dL Magnesium 3.0 H (1.6-2.3) mg/dL ALT 73 H (21-72) U/L Total Protein 5.4 L (6.3-8.2) g/dL Albumin 2.9 L (3.5-5.0) g/dL Microbiology - Last 24 Hours (Table) 11/29/16 11:35 Gram Stain - Preliminary Pleural Fluid Body Fluid Culture - Preliminary 11/30/16 04:30 Gram Stain - Preliminary Sputum 11/29/16 11:35 Acid Fast Bacilli Smear - Final Lung Aspirate - Right Acid Fast Bacilli Culture - Preliminary 11/27/16 14:06 Blood Culture - Preliminary Blood No Growth after 72 hours Assessment and Plan Plan: 1. Acute bilateral pneumonia: Chest x-ray from this morning shows worsening consolidation and pleural effusion. Case was discussed with pulmonary service. There are concerns about a possible empyema. Computed tomography scan shows no large saddle central PE. Does show a fairly moderate size non-simple right- sided pleural effusion or fluid collection. With a right lower lung atelectasis or consolidation. And right paratracheal density is loculated or non-simple right-sided pleural effusion fluid. Both vascular surgery and infectious disease have been consulted. Blood cultures have been ordered. Continue with antibiotics including Levaquin and Zosyn and vancomycin patient underwent chest tube placement, chest tube accidentally pulled out by patient. Computed tomography scan of the chest ordered to reassess. 2. Pneumonia with sepsis: Patient was tachycardic, leukocytosis, and febrile on admission. Continue with antibiotics and IV fluids 3. Acute pleuritic right-sided chest pain likely related to the pneumonia. Continue current pain medication 4. Acute hypoxic respiratory failure secondary to pneumonia or possible empyema. Continue to monitor patient did require BiPAP in the morning. Currently on a nonrebreather 5. Morbid obesity 6. Essential hypertension with pressures are stable 7. Degenerative disc disease 8. Bronchitis that was treated about a week ago with Z-Avery and prednisone taper DVT prophylaxis Lovenox and GI prophylaxis Protonix
--- NOTE | 2016-12-01 13:08 | P.PN ---
Progress Note - Text Thoracic Surgery Nursing POD: #2 insertion of pigtail catheter by interventional radiology. Patient awake and alert, no distress noted, no specific complaints. Vital Signs: Afebrile T-max 97.5F Vital Signs - 24 hr 11/30/16 11/30/16 11/30/16 15:51 15:58 16:00 Temperature 97.5 F L Pulse Rate 84 Pulse Rate [ 66 66 Right] Respiratory 20 20 Rate Blood Pressure 135/77 [Left Arm] O2 Sat by Pulse 94 L Oximetry 11/30/16 11/30/16 11/30/16 16:13 20:39 21:13 Temperature 96.9 F L Pulse Rate 84 80 Pulse Rate [ 46 L Right] Respiratory 20 Rate Blood Pressure 152/71 [Left Arm] O2 Sat by Pulse 92 L Oximetry 11/30/16 12/01/16 12/01/16 21:23 00:00 04:00 Temperature 96.7 F L 96.9 F L Pulse Rate 80 Pulse Rate [ 66 97 Right] Respiratory 20 20 Rate Blood Pressure 121/69 131/83 [Left Arm] O2 Sat by Pulse 95 93 L Oximetry 12/01/16 12/01/16 12/01/16 07:57 08:00 08:29 Temperature 97 F L Pulse Rate 68 Pulse Rate [ 68 68 Right] Respiratory 18 18 Rate Blood Pressure 155/88 [Left Arm] O2 Sat by Pulse 95 Oximetry 12/01/16 12/01/16 12/01/16 08:40 11:47 11:51 Temperature 97.5 F L Pulse Rate 68 Pulse Rate [ 72 72 Right] Respiratory 18 20 Rate Blood Pressure 134/80 [Left Arm] O2 Sat by Pulse 93 L Oximetry Labs: Short CBC 12/01/16 Range/Units 05:48 WBC 15.2 H (3.8-10.6) k/uL Hgb 13.2 (13.0-17.5) gm/dL Hct 41.0 (39.0-53.0) % Plt Count 298 (150-450) k/uL Neutrophils # 14.0 H (1.3-7.7) k/uL BMP 12/01/16 05:48 Sodium 141 Potassium 4.7 Chloride 108 H Carbon Dioxide 25 BUN 21 H Creatinine 0.70 Glucose 130 H Calcium 8.1 L Liver Function 12/01/16 Range/Units 05:48 Total Bilirubin 0.7 (0.2-1.3) mg/dL AST 38 (17-59) U/L ALT 73 H (21-72) U/L Alkaline Phosphatase 84 (38-126) U/L Albumin 2.9 L (3.5-5.0) g/dL IV Fluids: 0.9 normal saline at 100 mL per hour Lungs: Respirations are even and nonlabored, lungs have a few scattered rhonchi to auscultation and are diminished bilaterally. O2 sat: 93% on 3 L of oxygen delivered via high flow nasal cannula Heart: S1S2, regular rate and rhythm, portable telemetry shows a normal sinus rhythm with occasional premature atrial contractions Abdomen: Soft, Positive bowel sounds present in all 4 quadrants Pigtail catheter was accidentally pulled by patient and is not evident in the thoracic cavity by chest x-ray. There are no fluctuations in the waterseal chamber of the pleura Vac, and there is been 0 drainage into the Pleur-evac since the pigtail was inadvertently pulled. Plan: Will discontinue the pigtail catheter as it is only in the subcutaneous tissue and not in the pleural cavity. CT to be performed to evaluate pleural effusions. Will follow along with pulmonary service.
[2016-12-01] MEDS: LEVOFLOXACIN 750 MG TAB PO SCH (13:44)
[2016-12-01 17:31] LABS: Glucose,Whole Blood 178 mg/dL (75-99)
[2016-12-01] MEDS: MORPHINE SULFATE 4 MG/ML SYRINGE IVP PRN (21:57)
[2016-12-01 21:58] LABS: Glucose,Whole Blood 107 mg/dL (75-99)
[2016-12-01] MEDS: methylPREDNISolone SOD SUCCI 40 MG/ML 1 ML VIAL IV SCH (21:58)
[2016-12-02] MEDS: PIPERACILLIN-TAZOBACTAM 3.375 GM in DEXTROSE/WATER 1 50ML.BAG IVPB SCH ×3 (00:03→17:40)
[2016-12-02] MEDS: MORPHINE SULFATE 4 MG/ML SYRINGE IVP PRN ×2 (03:57→14:00)
[2016-12-02] MEDS: LORazepam 2 MG/ML SYRINGE IV PRN ×3 (03:58→22:05)
[2016-12-02] MEDS ORDERED: VANCOMYCIN TROUGH DUE 1 EACH MISC MISCELLANE ONE (04:00)
[2016-12-02 04:29] LABS: Basophils % (A) 0 %; CH 31.4; CHCM 31.5; Eosinophils % (A) 0 %; HCT 42.3 % (39.0-53.0); HDW 2.16; HGB 13.3 gm/dL (13.0-17.5); Luc # (Auto) 0.06; Luc % (Auto) 1; Lymphocytes # (A) 0.9 k/uL (1.0-4.8); Lymphocytes % (A) 8 %; MCH 31.4 pg (25.0-35.0); MCHC 31.3 g/dL (31.0-37.0); MCV 100.3 fL (80.0-100.0); Macrocytosis Slight; Mean Platelet Volume 6.6; Monocytes # (A) 0.5 k/uL (0-1.0); Monocytes % (A) 4 %; Neutrophils # (A) 10.2 k/uL (1.3-7.7); Neutrophils % (A) 87 %; RBC 4.22 m/uL (4.30-5.90); RDW 13.6 % (11.5-15.5); WBC 11.7 k/uL (3.8-10.6); WBC (Perox) 12.28
[2016-12-02 04:47] LABS: Anion Gap 7 mmol/L; Blood Urea Nitrogen 22 mg/dL (9-20); Calcium 7.9 mg/dL (8.4-10.2); Carbon Dioxide 26 mmol/L (22-30); Chloride 107 mmol/L (98-107); Glucose 128 mg/dL (74-99); Magnesium 2.7 mg/dL (1.6-2.3); Non-African American GFR(MDRD) >60 (>60 ml/min/1.73 sqM); Potassium 4.6 mmol/L (3.5-5.1); Sodium 140 mmol/L (137-145)
[2016-12-02 05:57] LABS: Glucose,Whole Blood 114 mg/dL (75-99)
[2016-12-02] MEDS: VANCOMYCIN 2,250 MG in SODIUM CHLORIDE 0.9% 500 ML IVPB SCH ×3 (06:17→21:50)
[2016-12-02] MEDS: INSULIN LISPRO (humaLOG) 300 UNIT/3 ML VIAL SQ SCH ×4 (06:19→21:50)
[2016-12-02] MEDS: PANTOPRAZOLE 40 MG TABLET PO SCH (06:20)
[2016-12-02] MEDS: SODIUM CHLORIDE 0.9% 1,000 ML IV SCH ×2 (06:40→15:07)
[2016-12-02] MEDS: LISINOPRIL 20 MG TAB PO SCH (08:14)
[2016-12-02] MEDS: HYDROCHLOROTHIAZIDE 12.5 MG CAP PO SCH (08:14)
[2016-12-02] MEDS: ENOXAPARIN 40 MG/0.4 ML SYRINGE SQ SCH (08:14)
[2016-12-02] MEDS: DOCUSATE 100 MG CAP PO SCH ×2 (08:14→21:48)
[2016-12-02] MEDS: IPRATROPIUM-ALBUTEROL 3 ML NEB INHALATION SCH ×4 (09:34→20:21)
--- NOTE | 2016-12-02 10:31 | CT ---
EXAMINATION TYPE: CT chest tube insertion DATE OF EXAM: 11/29/2016 11:57 AM COMPARISON: NONE HISTORY: Rt sided chest tube insertion, possible empyema CT DLP: 973 mGycm The procedure is discussed with the patient, the risks, complications, benefits and alternatives, wer e discussed and any questions were answered. Informed consent was obtained. The patient is placed s upine on the CT table, prepped and draped in the usual sterile fashion. Utilizing a 22-gauge Chiba needle access into the right pleural space was achieved and there is passa ge of an O.035 guidewire. Serial dilation 8 Nepali and placement of an 8 Nepali drainage catheter. Sa mple obtained and sent to pathology for analysis. Pathology confirmed adequate sample. All elements of maximal barrier and sterile technique were utilized. The patient remained stable throughout the p rocedure with no immediate postprocedural complication. IMPRESSION: 1. Successful CT guided right-sided chest tube insertion.
--- NOTE | 2016-12-02 11:42 | P.PN ---
Subjective Principal diagnosis: Acute Right lower lobe pneumonia and parapneumonic effusion/loculated 56-year-old obese male patient, who got moved to the intensive care unit yesterday because of worsening shortness of breath and bilateral pneumonia. This patient was in a good state of health until approximately 10 days ago when he developed symptoms of acute bronchitis. He contacted his primary care physician, Dr. Farrar, we'll give this patient a Z-Avery and a Medrol Dosepak. The patient also has albuterol solution for nebulizer as his has bronchial asthma. He did some albuterol treatment and he felt better. He completed his antibiotic course 6 days ago. Around 3 days ago he started developing severe acute pleuritic right-sided chest pain. The pain was severe to the point where the patient was unable to breathe 10. He felt hot and cold and there was no documented temperature. He became progressively short of breath and for that reason he was brought into the hospital. I reviewed a series of chest x-rays that were done since admission. There is obvious progression to the point where the patient has developed severe consolidation of the right lower lobe in addition to some infiltration of the left lower lobe and possibly a pleural effusion on the right is suspected. Empyema cannot be completely ruled out. The lung volumes are small. The patient has no hemoptysis. He is coughing out minimal amount of sputum. His white cell count is elevated. Overnight he was placed on a BiPAP at a pressure of 10 over 5 and currently is on 100% nonrebreather facemask with an oxygen saturation of 95%. He has no change in mental status. No previous pneumonias. He has remote history of MRSA infection in his right foot which got treated. No aspiration. No travel history. No smoking. No 70 chronic lung disease. He has features of obstructive sleep apnea however this has not been demonstrated or studies further. He is currently on a combination of Zosyn and Levaquin. On 11/29/2016 the patient is being seen in follow-up. The patient has an extensive right lung pneumonia with multiloculated right-sided pleural effusion. The patient was having severe pleurisy. The patient was covered with broad-spectrum antibiotics including a combination of Zosyn, Levaquin and vancomycin. The CAT scan of the chest that was done earlier was reviewed and the patient has a moderate-sized right-sided pleural effusion collection patient has not completely day or and there is obvious loculation. There is also compressive atelectasis of the right lung base. Based on all this, I discussed the case with the cardiac thoracic surgeon and I sent this patient to interventional radiology where a pigtail catheter was inserted to the right lung and a total of 250 mL of fluid has been aspirated already at the pigtail catheter is draining into the pleural VAC. Clinically the patient is doing well. He is on 15 L of oxygen nasal cannula. White cell count is still elevated. First is improved. No hypotension. No nausea. No vomiting. No other complaints including the absence of any mental status change. Cultures of been all negative thus far. Chest x-ray from earlier this morning shows opacification of lower two third of the right lung field. On 11/30/2016 the patient is feeling much better. The right-sided pleuritic chest and is pretty much recovered. Despite the x-ray reports, the chest tube on the right side is still in place and is draining adequate amount of fluid in the right lung has expanded nicely. Hemodynamically stable. The patient is down to 4ls of oxygen nasal cannula. White cell count is improving. No evidence of any empyema at this point. Remains on broad-spectrum antibiotics. Hemodynamically stable. On 12/01/2016, the patient is still doing okay. He has no major respiratory distress. Unfortunately, while standing up and going to the bathroom the patient stepped on his tube and the pigtail catheter came out of his pleural space. The chest x-ray from today is still showing some residual effusion the right lung base and consolidation. The volume status however has improved. He is afebrile. He is on oxygen at 4 L per minute nasal cannula and his white cell count is dropped down to 15. He is afebrile. He is doing well. No nausea. No vomiting. No other complaints otherwise. On 12/02/2016, patient continues to do relatively well, he is scheduled to have a PICC line placement today, and eventually be discharged on IV antibiotics given on outpatient basis via PICC line. In the meantime patient seems to be afebrile, in no distress, O2 sat is 96% on 6 L nasal cannula. Blood pressure is stable. Heart rate is 70. Labs showed relatively normal basic metabolic profile and a relatively normal CBC, WBC count is 11.7. Objective - Vital Signs Vital signs: Vital Signs Temp 97.0 F L 12/02/16 08:00 Pulse 60 12/02/16 11:18 Resp 16 12/02/16 11:18 BP 134/80 12/02/16 11:18 Pulse Ox 95 12/02/16 11:18 Intake & Output 12/01/16 12/02/16 12/02/16 18:59 06:59 18:59 Intake Total 450 930 180 Output Total 1000 750 Balance -550 180 180 Weight 177.6 kg Intake: IV 450 50 Piperacillin-Tazobactam 3 50 50 .375 gm In Dextrose/Water 1 50ml.bag @ 12.5 mls/hr IVPB Q8HR [facility] Rx#: [id number] Sodium Chloride 0.9% 1, 400 000 ml @ 20 mls/hr IV . Q24H [facility] Rx#:[id number] Intake, IV Titration 160 Amount Sodium Chloride 0.9% 1, 160 000 ml @ 20 mls/hr IV . Q24H [facility] Rx#:[id number] Oral 720 180 Output: Urine 1000 750 Other: Voiding Method Urinal Urinal Urinal # Voids 1 # Bowel Movements 1 - Exam Physical Exam: Revealed a morbidly obese white male, in no distress. HEENT:[Neck is supple.] [No neck masses.] [No thyromegaly.] [No JVD.] Mallampati class IV is noted. Chest: Diminished breath sounds at the bases especially on the right base, no crackles or rhonchi or wheezes, no catheter was noted.] Cardiac Exam: [Normal S1 and S2, no S3 gallop, no murmur.] Abdomen: [Soft, nontender, no megaly, no rebound, no guarding, normal bowel sounds.] Extremities: [No clubbing, no edema, no cyanosis.] Neurological Exam: [No focal neurologic deficit.] - Labs CBC & Chem 7: 12/02/16 03:56 12/02/16 03:56 Labs: Abnormal Lab Results - Last 24 Hours (Table) 12/01/16 12/01/16 12/01/16 Range/Units 11:54 16:59 21:56 WBC (3.8-10.6) k/uL RBC (4.30-5.90) m/uL MCV (80.0-100.0) fL Neutrophils # (1.3-7.7) k/uL Lymphocytes # (1.0-4.8) k/uL BUN (9-20) mg/dL Glucose (74-99) mg/dL POC Glucose (mg/dL) 118 H 178 H 107 H (75-99) mg/dL Calcium (8.4-10.2) mg/dL Magnesium (1.6-2.3) mg/dL 12/02/16 12/02/16 12/02/16 Range/Units 03:56 03:56 05:56 WBC 11.7 H (3.8-10.6) k/uL RBC 4.22 L (4.30-5.90) m/uL MCV 100.3 H (80.0-100.0) fL Neutrophils # 10.2 H (1.3-7.7) k/uL Lymphocytes # 0.9 L (1.0-4.8) k/uL BUN 22 H (9-20) mg/dL Glucose 128 H (74-99) mg/dL POC Glucose (mg/dL) 114 H (75-99) mg/dL Calcium 7.9 L (8.4-10.2) mg/dL Magnesium 2.7 H (1.6-2.3) mg/dL Microbiology - Last 24 Hours (Table) 11/30/16 04:30 Gram Stain - Final Sputum Sputum Culture - Final Kourtney albicans 11/27/16 14:06 Blood Culture - Preliminary Blood No Growth after 96 hours 11/29/16 11:35 Gram Stain - Preliminary Pleural Fluid Body Fluid Culture - Preliminary Assessment and Plan Plan: 1 acute bilateral pneumonia with interval progression and worsening in the consolidation of the right lower lobe with possibly development of a loculated right-sided pleural effusion with right basilar compressive atelectasis. The patient is status post pigtail catheter insertion with adequate evacuation of the right-sided pleural effusion and the tube drained adequately the pleural fluid and unfortunately it accidentally came out. The chest x-ray from today shows residual consolidation and effusion the right lung base and I suspect there is some residual loculation. 2 acute pleuritic right-sided chest pain secondary to above, improving 3 acute hypoxic respiratory failure , improving 4 acute BiPAP dependent respiratory failure, recovered 5 leukocytosis, improving 6 morbid obesity 7 hypertension 8 degenerative arthritis 9 bronchitis that was treated approximately a week ago on outpatient basis with a combination of Zithromax and prednisone burst taper Recommendation: Continue present treatment plan including broad-spectrum antibiotics, continue Lasix and Solu-Medrol, arrange for PICC line placement, and possible discharge on antibiotics on outpatient basis via PICC line. Time with Patient: Less than 30
[2016-12-02 11:46] LABS: Glucose,Whole Blood 85 mg/dL (75-99)
--- NOTE | 2016-12-02 11:50 | P.PN ---
Subjective Principal diagnosis: Loculated right pleural effusion POD #3 insertion of pigtail catheter by interventional radiology Patient's currently sitting up in bed in no apparent distress. Pigtail catheter was removed. Objective - Vital Signs Vital signs: Vital Signs Temp 97.0 F L 12/02/16 08:00 Pulse 60 12/02/16 11:18 Resp 16 12/02/16 11:18 BP 134/80 12/02/16 11:18 Pulse Ox 95 12/02/16 11:18 Intake & Output 12/01/16 12/02/16 12/02/16 18:59 06:59 18:59 Intake Total 450 930 180 Output Total 1000 750 Balance -550 180 180 Weight 177.6 kg Intake: IV 450 50 Piperacillin-Tazobactam 3 50 50 .375 gm In Dextrose/Water 1 50ml.bag @ 12.5 mls/hr IVPB Q8HR [facility] Rx#: [id number] Sodium Chloride 0.9% 1, 400 000 ml @ 20 mls/hr IV . Q24H [facility] Rx#:[id number] Intake, IV Titration 160 Amount Sodium Chloride 0.9% 1, 160 000 ml @ 20 mls/hr IV . Q24H [facility] Rx#:[id number] Oral 720 180 Output: Urine 1000 750 Other: Voiding Method Urinal Urinal Urinal # Voids 1 # Bowel Movements 1 - Constitutional General appearance: Present: cooperative, morbidly obese, no acute distress - Respiratory Details: Lungs sounds was bilaterally, right greater than left. Respirations even, nonlabored. Currently on 3 L nasal cannula with oxygen saturation 96%. Able to achieve 1250 mL on his incentive spirometry. - Cardiovascular Details: S1, S2 present. Regular rate and rhythm, normal sinus rhythm with occasional PVCs on telemetry. Bilateral lower extremity edema present. - Gastrointestinal Gastrointestinal Comment(s): Abdomen soft, nontender, nondistended. Active bowel sounds 4 quadrants. Tolerating diet. - Genitourinary Genitourinary Comment(s): Continues to void clear, yellow urine. - Musculoskeletal Musculoskeletal: Present: generalized weakness, strength equal bilaterally - Psychiatric Psychiatric: Present: A&O x's 3, appropriate affect, intact judgment & insight - Allied health notes Allied health notes reviewed: nursing - Labs CBC & Chem 7: 12/02/16 03:56 12/02/16 03:56 Labs: Abnormal Lab Results - Last 24 Hours (Table) 12/01/16 12/01/16 12/01/16 Range/Units 11:54 16:59 21:56 WBC (3.8-10.6) k/uL RBC (4.30-5.90) m/uL MCV (80.0-100.0) fL Neutrophils # (1.3-7.7) k/uL Lymphocytes # (1.0-4.8) k/uL BUN (9-20) mg/dL Glucose (74-99) mg/dL POC Glucose (mg/dL) 118 H 178 H 107 H (75-99) mg/dL Calcium (8.4-10.2) mg/dL Magnesium (1.6-2.3) mg/dL 12/02/16 12/02/16 12/02/16 Range/Units 03:56 03:56 05:56 WBC 11.7 H (3.8-10.6) k/uL RBC 4.22 L (4.30-5.90) m/uL MCV 100.3 H (80.0-100.0) fL Neutrophils # 10.2 H (1.3-7.7) k/uL Lymphocytes # 0.9 L (1.0-4.8) k/uL BUN 22 H (9-20) mg/dL Glucose 128 H (74-99) mg/dL POC Glucose (mg/dL) 114 H (75-99) mg/dL Calcium 7.9 L (8.4-10.2) mg/dL Magnesium 2.7 H (1.6-2.3) mg/dL Microbiology - Last 24 Hours (Table) 11/30/16 04:30 Gram Stain - Final Sputum Sputum Culture - Final Kourtney albicans 11/27/16 14:06 Blood Culture - Preliminary Blood No Growth after 96 hours 11/29/16 11:35 Gram Stain - Preliminary Pleural Fluid Body Fluid Culture - Preliminary - Imaging and Cardiology Chest x-ray: image reviewed Assessment and Plan (1) Pleural effusion, right Status: Acute (2) Hypertension Status: Acute (3) Daily consumption of alcohol Status: Acute (4) Community acquired bacterial pneumonia Status: Acute (5) Acute respiratory failure with hypoxia Status: Acute (6) Morbid obesity with BMI of 50.0-59.9, adult Status: Acute Plan: 1. Continue current antibiotics per pulmonary services. 2. Wean O2 as tolerated. Encourage incentive spirometer use. 3. Medical management per primary service. 4. GI/DVT prophylaxis. 5. At this time medical therapy is appropriate. We have no plans for surgical intervention. Time with Patient: Greater than 30
--- NOTE | 2016-12-02 12:22 | P.PN ---
Subjective patient is a 56-year-old male patient, who was in the ICU because of worsening shortness of breath and bilateral pneumonia. This patient was in a good state of health until approximately 10 days ago when he developed symptoms of acute bronchitis. He contacted his primary care physician, Dr. Farrar, who gave him a Z-Avery and a Medrol Dosepak. Patient continued to deteriorate and presented to [facility] chest x-ray revealed evidence of pneumonia he was initially admitted to telemetry floor and subsequently transferred to intensive care unit due to worsening shortness of breath patient was initially started on BiPAP. Patient had right sided pleural effusion and empyema was suspected, he underwent chest tube placement today. 11/30/2016 over the weekend patient's chest tube accidentally came out. A repeat computed tomography scan of the chest was ordered showing patchy infiltrate at the right base and 12 lesser degree left base small right pleural effusion. No pneumothorax. Aneurysm of the ascending thoracic aorta measures 4.6 cm. Pulmonarythe surgery following. Patient was able to be transferred out of the ICU over the weekend. On nasal cannula. reports some improvement in his shortness of breath he is still short of breath with any activity. Is requiring to use only the bedside urinal. Has difficulty getting to the bathroom. He has no IV access and nursing staff is having difficulty restarting IV. PICC line will be ordered. Patient denies any chest pain. His pleuritic pain on the right side has shown improvement. Denies any nausea or vomiting. Reports having bowel movements. Denies any difficulty urinating. Objective - Vital Signs Vital signs: Vital Signs Temp 97.0 F L 12/02/16 08:00 Pulse 68 12/02/16 12:10 Resp 16 12/02/16 11:18 BP 134/80 12/02/16 11:18 Pulse Ox 95 12/02/16 11:18 Intake & Output 12/01/16 12/02/16 12/02/16 18:59 06:59 18:59 Intake Total 450 930 180 Output Total 1000 750 450 Balance -550 180 -270 Weight 177.6 kg Intake: IV 450 50 Piperacillin-Tazobactam 3 50 50 .375 gm In Dextrose/Water 1 50ml.bag @ 12.5 mls/hr IVPB Q8HR [facility] Rx#: [id number] Sodium Chloride 0.9% 1, 400 000 ml @ 20 mls/hr IV . Q24H [facility] Rx#:[id number] Intake, IV Titration 160 Amount Sodium Chloride 0.9% 1, 160 000 ml @ 20 mls/hr IV . Q24H [facility] Rx#:[id number] Oral 720 180 Output: Urine 1000 750 450 Other: Voiding Method Urinal Urinal Urinal # Voids 1 # Bowel Movements 1 - Exam Head normocephalic Neck supple Lungs diminished Heart regular rate and rhythm S1-S2, no rub or gallop Abdomen is soft nontender nondistended positive bowel sounds no hepatosplenomegaly Extremities no edema Neuro alert and orientated to 3 - Labs CBC & Chem 7: 12/02/16 03:56 12/02/16 03:56 Labs: Abnormal Lab Results - Last 24 Hours (Table) 12/01/16 12/01/16 12/02/16 Range/Units 16:59 21:56 03:56 WBC 11.7 H (3.8-10.6) k/uL RBC 4.22 L (4.30-5.90) m/uL MCV 100.3 H (80.0-100.0) fL Neutrophils # 10.2 H (1.3-7.7) k/uL Lymphocytes # 0.9 L (1.0-4.8) k/uL BUN (9-20) mg/dL Glucose (74-99) mg/dL POC Glucose (mg/dL) 178 H 107 H (75-99) mg/dL Calcium (8.4-10.2) mg/dL Magnesium (1.6-2.3) mg/dL 12/02/16 12/02/16 Range/Units 03:56 05:56 WBC (3.8-10.6) k/uL RBC (4.30-5.90) m/uL MCV (80.0-100.0) fL Neutrophils # (1.3-7.7) k/uL Lymphocytes # (1.0-4.8) k/uL BUN 22 H (9-20) mg/dL Glucose 128 H (74-99) mg/dL POC Glucose (mg/dL) 114 H (75-99) mg/dL Calcium 7.9 L (8.4-10.2) mg/dL Magnesium 2.7 H (1.6-2.3) mg/dL Microbiology - Last 24 Hours (Table) 11/30/16 04:30 Gram Stain - Final Sputum Sputum Culture - Final Kourtney albicans 11/27/16 14:06 Blood Culture - Preliminary Blood No Growth after 96 hours 11/29/16 11:35 Gram Stain - Preliminary Pleural Fluid Body Fluid Culture - Preliminary Assessment and Plan Plan: 1. Acute bilateral pneumonia: Chest x-ray from this morning shows worsening consolidation and pleural effusion. Case was discussed with pulmonary service. There are concerns about a possible empyema. Computed tomography scan shows no large saddle central PE. Does show a fairly moderate size non-simple right- sided pleural effusion or fluid collection. With a right lower lung atelectasis or consolidation. And right paratracheal density is loculated or non-simple right-sided pleural effusion fluid. Pulmonary, infectious disease following. Patient currently on vancomycin, Zosyn and Levaquin. Patient status post chest tube right-sided pleural effusion which drain adequately. Chest tube accidentally came out. Appears that is able to stay out. 2. Pneumonia with sepsis: Patient was tachycardic, leukocytosis, and febrile on admission. Continue with antibiotics and IV fluids 3. Acute pleuritic right-sided chest pain likely related to the pneumonia. Now improved 4. Acute hypoxic respiratory failure secondary to pneumonia or possible empyema. Continue to monitor patient did require BiPAP in the morning. Currently on nasal cannula 5. Morbid obesity 6. Essential hypertension with pressures are stable 7. Degenerative disc disease 8. Bronchitis that was treated about a week ago with Z-Avery and prednisone taper DVT prophylaxis Lovenox and GI prophylaxis Protonix
[2016-12-02] MEDS: ACETAMINOPHEN TAB 500 MG TAB PO PRN (12:31)
[2016-12-02] MEDS ORDERED: LIDOCAINE 2% (PF) 20 MG/ML 10ML SQ ONE (13:33)
--- NOTE | 2016-12-02 13:46 | IR ---
PICC LINE PLACEMENT: HISTORY: Infection requiring long-term antibiotic therapy PROCEDURE: Ultrasound and fluoroscopic guidance of PICC line placement. COMPLICATIONS: None ANESTHESIA: 1. 1% Lidocaine locally. FINDINGS/TECHNIQUE: The procedure was explained to the patient. The risks, complications, benefits and alternatives were discussed and any questions were answered. Informed consent was obtained. The patient was placed supine on the fluoroscopic table and prepped and draped in the usual sterile [facility] ion. Utilizing a 21 gauge needle and sonographic and fluoroscopic guidance, access in the vein was achieved and there is placement of a 0.018 guidewire. The vein is patent. A 4-F sheath was placed o ginger the guidewire. The guidewire and dilator were removed and a 4-F. PICC line was placed through th e sheath with the tip at the level of the SVC. The sheath was removed, the catheter was flushed and sutured into position. The patient was stable throughout the procedure and remained stable upon disc harge from the Department of Radiology. The vein puncture was patent under ultrasound. A mcneil scale image was obtained to document patency of the vein punctured. All elements of the maximal barrier technique were utilized. FLUOROSCOPY TIME: 0.3 minute IMPRESSION: Successful PICC line placement under ultrasound and fluoroscopic guidance.
[2016-12-02] MEDS: methylPREDNISolone SOD SUCCI 40 MG/ML 1 ML VIAL IV SCH ×2 (13:59→21:48)
[2016-12-02] MEDS: LEVOFLOXACIN 750 MG TAB PO SCH (15:06)
[2016-12-02 16:54] LABS: Glucose,Whole Blood 123 mg/dL (75-99)
[2016-12-02 20:54] LABS: Glucose,Whole Blood 106 mg/dL (75-99)
[2016-12-02] MEDS: HYDROmorphone 1 MG/ML 1 ML SYRINGE IVP PRN (21:50)
--- NOTE | 2016-12-02 21:51 | P.PN ---
Subjective Principal diagnosis: pneumonia shortness of breath 56-year-old male who has a known history of obesity and hypertension presents to the emergency center because of a week history of increasing illness. Approximately a week ago he had an acute bout of bronchitis. He felt very poorly and was seen by his primary care physician. He received a course of azithromycin and a medrol Dosepak. He relates that he did have some improvement of his cough and sputum production. He however is now developed the significant change of his status. Developed severe right-sided pain to his chest. Stabbing in nature. The socio- significant shortness of breath. Tachycardia. As well as a fever of 101.9. He was brought to Hospital by EMS and is now been admitted. Evidence of sepsis and was brought to the intensive care unit. He did have evidence of respiratory failure requiring BiPAP use. Also required pain medications and sedation for his significant anxiety and agitation from his shortness of breath and pain. Certainly feeling somewhat better today. Computed tomography scan failed to reveal evidence of a pulmonary embolus. But there is evidence of pneumonia and likely a right pleural effusion which could be empyema given his symptoms. The patient has now had the percutaneous drainage catheter placed into his pleural space. A large amount of purulent material has been drained. Sent to the laboratory for culture. He is feeling better today. His fevers, chills or shortness of breath have all improved. He has been moved to stepdown, he is feeling considerably better but still very short of breath with activity. Oxygen is now 3 L nasal cannula. His severe pain to the chest is improved of the chest tube has been removed, [place], accidentally. Objective - Vital Signs Vital signs: Vital Signs Temp 97.5 F L 12/02/16 16:00 Pulse 84 12/02/16 20:30 Resp 16 12/02/16 16:00 BP 112/78 12/02/16 16:00 Pulse Ox 98 12/02/16 16:49 Intake & Output 12/02/16 12/02/16 12/03/16 06:59 18:59 06:59 Intake Total 930 360 Output Total 750 450 Balance 180 -90 Weight 177.6 kg Intake: IV 50 Piperacillin-Tazobactam 3 50 .375 gm In Dextrose/Water 1 50ml.bag @ 12.5 mls/hr IVPB Q8HR [facility] Rx#: [id number] Intake, IV Titration 160 Amount Sodium Chloride 0.9% 1, 160 000 ml @ 20 mls/hr IV . Q24H [facility] Rx#:[id number] Oral 720 360 Output: Urine 750 450 Other: Voiding Method Urinal Urinal # Voids 1 # Bowel Movements 1 - Exam Pleasant obese 56-year-old male who is now much more comfortable. Pleural catheter has been removed. HEENT: Anicteric conjunctiva are pink and moist nasal mucosa grossly intact without significant lesions, there is no thrush. Neck: The neck is supple without significant lymphadenopathy or thyromegaly. Lungs: Symmetrical air entry. Expiratory wheeze. Crackles at the right base. A few bronchial sounds at the right base. No significant percussion tenderness to the right chest. No significant egophony be appreciated Heart: Regular rate and rhythm with an audible S1-S2, no S3 no S4. There is no significant murmur click or rub, PMI was nondisplaced. Abdomen: Obese Positive bowel sounds soft and nontender without palpable masses or organomegaly. There was no guarding or rebound. Extremities: The upper extremities have excellent pulses they are symmetric, no significant petechiae or telangiectasia. No splinter hemorrhages were noted. The lower extremities are free from significant edema. The peripheral pulses were 2+ and symmetric. Neuro: Awake alert oriented to person place and time. There are no acute new gross focal sensory motor deficits. - Labs CBC & Chem 7: 12/02/16 03:56 12/02/16 03:56 Labs: Abnormal Lab Results - Last 24 Hours (Table) 12/01/16 12/02/16 12/02/16 Range/Units 21:56 03:56 03:56 WBC 11.7 H (3.8-10.6) k/uL RBC 4.22 L (4.30-5.90) m/uL MCV 100.3 H (80.0-100.0) fL Neutrophils # 10.2 H (1.3-7.7) k/uL Lymphocytes # 0.9 L (1.0-4.8) k/uL BUN 22 H (9-20) mg/dL Glucose 128 H (74-99) mg/dL POC Glucose (mg/dL) 107 H (75-99) mg/dL Calcium 7.9 L (8.4-10.2) mg/dL Magnesium 2.7 H (1.6-2.3) mg/dL 12/02/16 12/02/16 12/02/16 Range/Units 05:56 16:52 20:53 WBC (3.8-10.6) k/uL RBC (4.30-5.90) m/uL MCV (80.0-100.0) fL Neutrophils # (1.3-7.7) k/uL Lymphocytes # (1.0-4.8) k/uL BUN (9-20) mg/dL Glucose (74-99) mg/dL POC Glucose (mg/dL) 114 H 123 H 106 H (75-99) mg/dL Calcium (8.4-10.2) mg/dL Magnesium (1.6-2.3) mg/dL Microbiology - Last 24 Hours (Table) 11/27/16 14:06 Blood Culture - Preliminary Blood No Growth after 120 hours 11/29/16 11:35 Gram Stain - Preliminary Pleural Fluid Body Fluid Culture - Preliminary 11/30/16 04:30 Gram Stain - Final Sputum Sputum Culture - Final Kourtney albicans Laboratory Results WBC 11.7 k/uL (3.8-10.6) H 12/02/16 03:56 RBC 4.22 m/uL (4.30-5.90) L 12/02/16 03:56 Hgb 13.3 gm/dL (13.0-17.5) 12/02/16 03:56 Hct 42.3 % (39.0-53.0) 12/02/16 03:56 MCV 100.3 fL (80.0-100.0) H 12/02/16 03:56 MCH 31.4 pg (25.0-35.0) 12/02/16 03:56 MCHC 31.3 g/dL (31.0-37.0) 12/02/16 03:56 RDW 13.6 % (11.5-15.5) 12/02/16 03:56 Plt Count 293 k/uL (150-450) 12/02/16 03:56 Neutrophils % 87 % 12/02/16 03:56 Neutrophils % (Manual) 90.0 % 11/27/16 14:06 Lymphocytes % 8 % 12/02/16 03:56 Lymphocytes % (Manual) 7.0 % 11/27/16 14:06 Monocytes % 4 % 12/02/16 03:56 Monocytes % (Manual) 3.0 % 11/27/16 14:06 Eosinophils % 0 % 12/02/16 03:56 Basophils % 0 % 12/02/16 03:56 Neutrophils # 10.2 k/uL (1.3-7.7) H 12/02/16 03:56 Neutrophils # (Manual) 23.2 k/uL (1.3-7.7) H 11/27/16 14:06 Lymphocytes # 0.9 k/uL (1.0-4.8) L 12/02/16 03:56 Lymphocytes # (Manual) 1.8 k/uL (1.0-4.8) 11/27/16 14:06 Monocytes # 0.5 k/uL (0-1.0) 12/02/16 03:56 Monocytes # (Manual) 0.8 k/uL (0-1.0) 11/27/16 14:06 Eosinophils # 0.0 k/uL (0-0.7) 12/02/16 03:56 Basophils # 0.0 k/uL (0-0.2) 12/02/16 03:56 Nucleated RBCs 0 /100 WBC (0-0) 11/27/16 14:06 RBC Morphology Normal 11/27/16 14:06 Macrocytosis Slight 12/02/16 03:56 PT 11.4 sec (9.0-12.0) 11/27/16 20:18 INR 1.1 (<1.1) 11/27/16 20:18 APTT 28.9 sec (22.0-30.0) 11/27/16 20:18 D-Dimer 0.80 mg/L FEU (<0.60) H 11/27/16 20:18 Sample Site LRAD 11/28/16 05:59 ABG pH 7.38 (7.35-7.45) 11/28/16 05:59 ABG pCO2 40 mmHg (35-45) 11/28/16 05:59 ABG pO2 84 mmHg (83-108) 11/28/16 05:59 ABG HCO3 23 mmol/L (21-25) 11/28/16 05:59 ABG Total CO2 24 mmol/L (19-24) 11/28/16 05:59 ABG O2 Saturation 96.0 % (94-97) 11/28/16 05:59 ABG Base Excess -1.4 mmol/L 11/28/16 05:59 FiO2 100 % 11/28/16 05:59 Sodium 140 mmol/L (137-145) 12/02/16 03:56 Potassium 4.6 mmol/L (3.5-5.1) 12/02/16 03:56 Chloride 107 mmol/L (98-107) 12/02/16 03:56 Carbon Dioxide 26 mmol/L (22-30) 12/02/16 03:56 Anion Gap 7 mmol/L 12/02/16 03:56 BUN 22 mg/dL (9-20) H 12/02/16 03:56 Creatinine 0.70 mg/dL (0.66-1.25) 12/02/16 03:56 Est GFR (MDRD) Af Amer >60 (>60 ml/min/1.73 sqM) 12/02/16 03:56 Est GFR (MDRD) Non-Af >60 (>60 ml/min/1.73 sqM) 12/02/16 03:56 Glucose 128 mg/dL (74-99) H 12/02/16 03:56 POC Glucose (mg/dL) 106 mg/dL (75-99) H 12/02/16 20:53 POC Glu Product Safety Lead ID Martine Chambers 12/02/16 20:[address] Glu mg/dL 123 mg/dL 11/28/16 05:08 Hemoglobin A1c 5.9 % (4.2-6.1) 11/28/16 05:08 Plasma Lactic Acid Jaskaran 1.3 mmol/L (0.7-2.0) 11/27/16 20:14 Calcium 7.9 mg/dL (8.4-10.2) L 12/02/16 03:56 Ionized Calcium Елена 4.9 mg/dL (4.5-5.3) 11/27/16 20:18 Phosphorus 3.0 mg/dL (2.5-4.5) 12/02/16 03:56 Magnesium 2.7 mg/dL (1.6-2.3) H 12/02/16 03:56 Total Bilirubin 0.7 mg/dL (0.2-1.3) 12/01/16 05:48 AST 38 U/L (17-59) 12/01/16 05:48 ALT 73 U/L (21-72) H 12/01/16 05:48 Alkaline Phosphatase 84 U/L (38-126) 12/01/16 05:48 Total Creatine Kinase 96 U/L (55-170) 11/27/16 14:06 CK-MB (CK-2) 5.9 ng/mL (0.0-2.4) H* 11/27/16 20:18 CK-MB (CK-2) Rel Index 7.3 11/27/16 14:06 Troponin I <0.012 ng/mL (0.000-0.034) 11/27/16 20:18 NT-Pro-B Natriuret Pep 97 pg/mL 11/27/16 14:06 Total Protein 5.4 g/dL (6.3-8.2) L 12/01/16 05:48 Albumin 2.9 g/dL (3.5-5.0) L 12/01/16 05:48 Amylase 35 U/L (30-110) 11/27/16 20:18 Lipase 94 U/L (23-300) 11/27/16 20:18 Urine Color Yellow 11/27/16 23:00 Urine Appearance Clear (Clear) 11/27/16 23:00 Urine pH 5.5 (5.0-8.0) 11/27/16 23:00 Ur Specific [place] 1.016 (1.001-1.035) 11/27/16 23:00 Urine Protein Negative (Negative) 11/27/16 23:00 Urine Glucose (UA) Negative (Negative) 11/27/16 23:00 Urine Ketones Negative (Negative) 11/27/16 23:00 Urine Blood Negative (Negative) 11/27/16 23:00 Urine Nitrite Negative (Negative) 11/27/16 23:00 Urine Bilirubin 1+ (Negative) H 11/27/16 23:00 Urine Urobilinogen <2.0 mg/dL (<2.0) 11/27/16 23:00 Ur Leukocyte Esterase Negative (Negative) 11/27/16 23:00 Fluid Source 11/29/16 11:35 Fluid Appearance Cloudy 11/29/16 11:35 Fluid RBC 6500 /uL 11/29/16 11:35 Fluid Nucleated Cells 2100 /uL 11/29/16 11:35 Fluid Polynuclear WBCs 90 % 11/29/16 11:35 Fluid Mononuclear WBCs 10 % 11/29/16 11:35 Body Fluid Glucose Source Body Fluid 11/29/16 11:35 Fluid Glucose 45 mg/dL 11/29/16 11:35 Body Fluid Protein Source Body Fluid 11/29/16 11:35 Fluid Total Protein 4800 mg/dL 11/29/16 11:35 Body Fluid LDH Source Body Fluid 11/29/16 11:35 Fluid Cholesterol 103 mg/dL 11/29/16 11:35 Fl Cholesterol Source Body Fluid 11/29/16 11:35 Vancomycin Trough 19.1 ug/mL 12/02/16 03:56 Urine Legionella Ag Not detected (Not detected) 11/28/16 11:45 Virus Source See Below 11/29/16 11:35 Viral Test See Below 11/29/16 11:35 Virus Analysis Interp See Below 11/29/16 11:35 Microbiology 11/27/16 14:06 Blood Blood Culture - Preliminary No Growth after 120 hours 11/29/16 11:35 Pleural Fluid Gram Stain - Preliminary 11/29/16 11:35 Pleural Fluid Body Fluid Culture - Preliminary 11/30/16 04:30 Sputum Gram Stain - Final 11/30/16 04:30 Sputum Sputum Culture - Final Kourtney albicans 11/29/16 11:35 Lung Aspirate - Right Acid Fast Bacilli Smear - Final 11/29/16 11:35 Lung Aspirate - Right Acid Fast Bacilli Culture - Preliminary 11/29/16 11:35 Lung Aspirate - Right Fungal Culture - Preliminary 11/27/16 23:00 Urine,Catheterized Urine Culture - Final 11/28/16 11:20 Sputum Gram Stain - Final 11/28/16 11:20 Sputum Sputum Culture - Final Assessment and Plan (1) Acute respiratory failure with hypoxia Narrative/Plan: 56-year-old male presents to Hospital significant shortness of breath cough or sputum production and severe right-sided chest pain. Imaging studies reveal evidence of sher pneumonia and likely fluid collection and possible empyema but no pulmonary embolus. Receiving extensive antibiotic therapy at this time all cultures are process with piperacillin tazobactam and Levaquin with concerns to gram-negative pneumonia. The patient is no significant alcohol user and aspiration pneumonia is not a concern at this time. Could also have routine Streptococcus pneumoniae with results pleural effusion which is common and potential empyema. Case discussed with cardio thoracic surgery. Patient has had percutaneous drainage of the empyema. Pleural catheter has been removed. Patient shows marked improvement. Cultures are in process and will further direct antibiotic therapy, leukocytosis due to the significant sepsis and steroid use is improving. Pain is much improved. Still requiring O2 therapy. Follow up xray will further direct next plans. Status: Acute (2) Morbid obesity with BMI of 50.0-59.9, adult Status: Acute (3) Gram-negative pneumonia Status: Acute (4) Empyema lung Status: Acute
[2016-12-03] MEDS: PIPERACILLIN-TAZOBACTAM 3.375 GM in DEXTROSE/WATER 1 50ML.BAG IVPB SCH ×3 (00:26→21:07)
[2016-12-03 06:30] LABS: Glucose,Whole Blood 112 mg/dL (75-99)
[2016-12-03 06:57] LABS: Basophils % (A) 0 %; CH 31.2; Eosinophils # (A) 0.1 k/uL (0-0.7); Eosinophils % (A) 1 %; HCT 41.7 % (39.0-53.0); HDW 2.09; HGB 13.3 gm/dL (13.0-17.5); Luc # (Auto) 0.05; Luc % (Auto) 0; Lymphocytes # (A) 1.1 k/uL (1.0-4.8); Lymphocytes % (A) 9 %; MCH 31.1 pg (25.0-35.0); MCHC 31.8 g/dL (31.0-37.0); MCV 97.7 fL (80.0-100.0); Mean Platelet Volume 6.7; Monocytes # (A) 0.5 k/uL (0-1.0); Monocytes % (A) 4 %; Neutrophils # (A) 10.6 k/uL (1.3-7.7); Neutrophils % (A) 86 %; RBC 4.26 m/uL (4.30-5.90); RDW 13.5 % (11.5-15.5); WBC 12.3 k/uL (3.8-10.6); WBC (Perox) 12.86
[2016-12-03 07:39] LABS: Anion Gap 7 mmol/L; Blood Urea Nitrogen 16 mg/dL (9-20); Calcium 7.7 mg/dL (8.4-10.2); Carbon Dioxide 27 mmol/L (22-30); Chloride 105 mmol/L (98-107); Glucose 108 mg/dL (74-99); Magnesium 2.4 mg/dL (1.6-2.3); Non-African American GFR(MDRD) >60 (>60 ml/min/1.73 sqM); Phosphorous 3.3 mg/dL (2.5-4.5); Potassium 4.7 mmol/L (3.5-5.1); Sodium 139 mmol/L (137-145)
[2016-12-03] MEDS: INSULIN LISPRO (humaLOG) 300 UNIT/3 ML VIAL SQ SCH ×4 (08:05→21:11)
[2016-12-03] MEDS: IPRATROPIUM-ALBUTEROL 3 ML NEB INHALATION SCH ×4 (08:47→19:59)
[2016-12-03] MEDS: VANCOMYCIN 2,250 MG in SODIUM CHLORIDE 0.9% 500 ML IVPB SCH ×2 (09:13→17:39)
[2016-12-03] MEDS: HYDROmorphone 1 MG/ML 1 ML SYRINGE IVP PRN ×3 (09:14→20:32)
[2016-12-03] MEDS: ENOXAPARIN 40 MG/0.4 ML SYRINGE SQ SCH (09:14)
[2016-12-03] MEDS: HYDROCHLOROTHIAZIDE 12.5 MG CAP PO SCH (09:14)
[2016-12-03] MEDS: LISINOPRIL 20 MG TAB PO SCH (09:14)
[2016-12-03] MEDS: methylPREDNISolone SOD SUCCI 40 MG/ML 1 ML VIAL IV SCH ×2 (09:14→21:11)
[2016-12-03] MEDS: DOCUSATE 100 MG CAP PO SCH ×2 (09:14→20:32)
[2016-12-03] MEDS: PANTOPRAZOLE 40 MG TABLET PO SCH (09:14)
[2016-12-03] MEDS: LORazepam 2 MG/ML SYRINGE IV PRN ×2 (09:15→20:32)
--- NOTE | 2016-12-03 12:11 | P.PN ---
Subjective Principal diagnosis: Loculated right pleural effusion POD #4 insertion of pigtail catheter by interventional radiology Patient's currently sitting up in bed in no apparent distress. Pigtail catheter was removed. Pt states he feels better than when he came in and is ready to go home. Objective - Vital Signs Vital signs: Vital Signs Temp 97.1 F L 12/03/16 08:00 Pulse 82 12/03/16 11:39 Resp 18 12/03/16 04:00 BP 121/60 12/03/16 08:00 Pulse Ox 97 12/03/16 08:49 Intake & Output 12/02/16 12/03/16 12/03/16 18:59 06:59 18:59 Intake Total 360 980 Output Total 450 600 350 Balance -90 -600 630 Weight 178.3 kg Intake: IV 60 Sodium Chloride 0.9% 1, 60 000 ml @ 20 mls/hr IV . Q24H [facility] Rx#:[id number] Intake, IV Titration 500 Amount Vancomycin 2,250 mg In 500 Sodium Chloride 0.9% 500 ml @ 167 mls/hr IVPB Q8H [facility] Rx#:[id number] Oral 360 420 Output: Urine 450 600 350 Other: Voiding Method Urinal Urinal # Bowel Movements 1 - Constitutional General appearance: Present: cooperative, no acute distress, obese - Respiratory Details: LS diminished bilaterally. Resp even/non-labored. Currently on 3 LPM NC with oxygen saturation 97%. Able to achieve 1000 ml on incentive spirometry. - Cardiovascular Details: S1/S2 present. Reg rate/rhythm. NSR on telemetry. - Gastrointestinal Gastrointestinal Comment(s): Abd soft/NT/ND, morbidly obese. General gastrointestinal: Present: normal bowel sounds - Psychiatric Psychiatric: Present: A&O x's 3, appropriate affect, intact judgment & insight - Allied health notes Allied health notes reviewed: nursing - Labs CBC & Chem 7: 12/03/16 06:10 12/03/16 06:10 Labs: Abnormal Lab Results - Last 24 Hours (Table) 12/02/16 12/02/16 12/03/16 Range/Units 16:52 20:53 06:10 WBC 12.3 H (3.8-10.6) k/uL RBC 4.26 L (4.30-5.90) m/uL Neutrophils # 10.6 H (1.3-7.7) k/uL Glucose (74-99) mg/dL POC Glucose (mg/dL) 123 H 106 H (75-99) mg/dL Calcium (8.4-10.2) mg/dL Magnesium (1.6-2.3) mg/dL 12/03/16 12/03/16 Range/Units 06:10 06:27 WBC (3.8-10.6) k/uL RBC (4.30-5.90) m/uL Neutrophils # (1.3-7.7) k/uL Glucose 108 H (74-99) mg/dL POC Glucose (mg/dL) 112 H (75-99) mg/dL Calcium 7.7 L (8.4-10.2) mg/dL Magnesium 2.4 H (1.6-2.3) mg/dL Microbiology - Last 24 Hours (Table) 11/29/16 11:35 Gram Stain - Final Pleural Fluid Body Fluid Culture - Final 11/27/16 14:06 Blood Culture - Preliminary Blood No Growth after 120 hours 11/30/16 04:30 Gram Stain - Final Sputum Sputum Culture - Final Kourtney albicans Assessment and Plan (1) Pleural effusion, right Status: Acute (2) Hypertension Status: Acute (3) Daily consumption of alcohol Status: Acute (4) Community acquired bacterial pneumonia Status: Acute (5) Acute respiratory failure with hypoxia Status: Acute (6) Morbid obesity with BMI of 50.0-59.9, adult Status: Acute Plan: 1. Continue current antibiotics per pulmonary services. 2. Wean O2 as tolerated. Encourage incentive spirometer use. 3. Medical management per primary service. 4. GI/DVT prophylaxis. 5. We have no plans for surgical intervention. Will continue to monitor peripherally. Time with Patient: Greater than 30
[2016-12-03 12:38] LABS: Glucose,Whole Blood 105 mg/dL (75-99)
--- NOTE | 2016-12-03 15:09 | P.PN ---
Subjective Principal diagnosis: Acute Right lower lobe pneumonia and parapneumonic effusion/loculated 56-year-old obese male patient, who got moved to the intensive care unit yesterday because of worsening shortness of breath and bilateral pneumonia. This patient was in a good state of health until approximately 10 days ago when he developed symptoms of acute bronchitis. He contacted his primary care physician, Dr. Farrar, we'll give this patient a Z-Avery and a Medrol Dosepak. The patient also has albuterol solution for nebulizer as his has bronchial asthma. He did some albuterol treatment and he felt better. He completed his antibiotic course 6 days ago. Around 3 days ago he started developing severe acute pleuritic right-sided chest pain. The pain was severe to the point where the patient was unable to breathe 10. He felt hot and cold and there was no documented temperature. He became progressively short of breath and for that reason he was brought into the hospital. I reviewed a series of chest x-rays that were done since admission. There is obvious progression to the point where the patient has developed severe consolidation of the right lower lobe in addition to some infiltration of the left lower lobe and possibly a pleural effusion on the right is suspected. Empyema cannot be completely ruled out. The lung volumes are small. The patient has no hemoptysis. He is coughing out minimal amount of sputum. His white cell count is elevated. Overnight he was placed on a BiPAP at a pressure of 10 over 5 and currently is on 100% nonrebreather facemask with an oxygen saturation of 95%. He has no change in mental status. No previous pneumonias. He has remote history of MRSA infection in his right foot which got treated. No aspiration. No travel history. No smoking. No 70 chronic lung disease. He has features of obstructive sleep apnea however this has not been demonstrated or studies further. He is currently on a combination of Zosyn and Levaquin. On 11/29/2016 the patient is being seen in follow-up. The patient has an extensive right lung pneumonia with multiloculated right-sided pleural effusion. The patient was having severe pleurisy. The patient was covered with broad-spectrum antibiotics including a combination of Zosyn, Levaquin and vancomycin. The CAT scan of the chest that was done earlier was reviewed and the patient has a moderate-sized right-sided pleural effusion collection patient has not completely day or and there is obvious loculation. There is also compressive atelectasis of the right lung base. Based on all this, I discussed the case with the cardiac thoracic surgeon and I sent this patient to interventional radiology where a pigtail catheter was inserted to the right lung and a total of 250 mL of fluid has been aspirated already at the pigtail catheter is draining into the pleural VAC. Clinically the patient is doing well. He is on 15 L of oxygen nasal cannula. White cell count is still elevated. First is improved. No hypotension. No nausea. No vomiting. No other complaints including the absence of any mental status change. Cultures of been all negative thus far. Chest x-ray from earlier this morning shows opacification of lower two third of the right lung field. On 11/30/2016 the patient is feeling much better. The right-sided pleuritic chest and is pretty much recovered. Despite the x-ray reports, the chest tube on the right side is still in place and is draining adequate amount of fluid in the right lung has expanded nicely. Hemodynamically stable. The patient is down to 4ls of oxygen nasal cannula. White cell count is improving. No evidence of any empyema at this point. Remains on broad-spectrum antibiotics. Hemodynamically stable. On 12/01/2016, the patient is still doing okay. He has no major respiratory distress. Unfortunately, while standing up and going to the bathroom the patient stepped on his tube and the pigtail catheter came out of his pleural space. The chest x-ray from today is still showing some residual effusion the right lung base and consolidation. The volume status however has improved. He is afebrile. He is on oxygen at 4 L per minute nasal cannula and his white cell count is dropped down to 15. He is afebrile. He is doing well. No nausea. No vomiting. No other complaints otherwise. On 12/02/2016, patient continues to do relatively well, he is scheduled to have a PICC line placement today, and eventually be discharged on IV antibiotics given on outpatient basis via PICC line. In the meantime patient seems to be afebrile, in no distress, O2 sat is 96% on 6 L nasal cannula. Blood pressure is stable. Heart rate is 70. Labs showed relatively normal basic metabolic profile and a relatively normal CBC, WBC count is 11.7. Reevaluated today on 12/03/2016, patient already has a PICC line placed yesterday , patient remains on IV antibiotics as per infectious disease on the case, doing well overall. Continues to have intermittent episodes of dry hacking cough, no wheezing, no fever, no chills, no hemoptysis. CBC was reviewed basic metabolic profile was also reviewed and they seem to be relatively unremarkable. Objective - Vital Signs Vital signs: Vital Signs Temp 97.1 F L 12/03/16 08:00 Pulse 82 12/03/16 11:39 Resp 18 12/03/16 04:00 BP 121/60 12/03/16 08:00 Pulse Ox 97 12/03/16 08:49 Intake & Output 12/02/16 12/03/16 12/03/16 18:59 06:59 18:59 Intake Total 360 980 Output Total 450 600 350 Balance -90 -600 630 Weight 178.3 kg Intake: IV 60 Sodium Chloride 0.9% 1, 60 000 ml @ 20 mls/hr IV . Q24H [facility] Rx#:[id number] Intake, IV Titration 500 Amount Vancomycin 2,250 mg In 500 Sodium Chloride 0.9% 500 ml @ 167 mls/hr IVPB Q8H [facility] Rx#:[id number] Oral 360 420 Output: Urine 450 600 350 Other: Voiding Method Urinal Urinal # Bowel Movements 1 - Exam Physical Exam: Revealed a morbidly obese white male, in no distress. HEENT:[Neck is supple.] [No neck masses.] [No thyromegaly.] [No JVD.] Mallampati class IV is noted. Chest: Diminished breath sounds at the bases especially on the right base, no crackles or rhonchi or wheezes, no catheter was noted.] Cardiac Exam: [Normal S1 and S2, no S3 gallop, no murmur.] Abdomen: [Soft, nontender, no megaly, no rebound, no guarding, normal bowel sounds.] Extremities: [No clubbing, no edema, no cyanosis.] Neurological Exam: [No focal neurologic deficit.] - Labs CBC & Chem 7: 12/03/16 06:10 12/03/16 06:10 Labs: Abnormal Lab Results - Last 24 Hours (Table) 12/02/16 12/02/16 12/03/16 Range/Units 16:52 20:53 06:10 WBC 12.3 H (3.8-10.6) k/uL RBC 4.26 L (4.30-5.90) m/uL Neutrophils # 10.6 H (1.3-7.7) k/uL Glucose (74-99) mg/dL POC Glucose (mg/dL) 123 H 106 H (75-99) mg/dL Calcium (8.4-10.2) mg/dL Magnesium (1.6-2.3) mg/dL 12/03/16 12/03/16 12/03/16 Range/Units 06:10 06:27 12:30 WBC (3.8-10.6) k/uL RBC (4.30-5.90) m/uL Neutrophils # (1.3-7.7) k/uL Glucose 108 H (74-99) mg/dL POC Glucose (mg/dL) 112 H 105 H (75-99) mg/dL Calcium 7.7 L (8.4-10.2) mg/dL Magnesium 2.4 H (1.6-2.3) mg/dL Microbiology - Last 24 Hours (Table) 11/29/16 11:35 Gram Stain - Final Pleural Fluid Body Fluid Culture - Final 11/27/16 14:06 Blood Culture - Preliminary Blood No Growth after 120 hours Assessment and Plan Plan: 1 acute bilateral pneumonia with interval progression and worsening in the consolidation of the right lower lobe with possibly development of a loculated right-sided pleural effusion with right basilar compressive atelectasis. The patient is status post pigtail catheter insertion with adequate evacuation of the right-sided pleural effusion and the tube drained adequately the pleural fluid and unfortunately it accidentally came out. The chest x-ray from today shows residual consolidation and effusion the right lung base and I suspect there is some residual loculation. 2 acute pleuritic right-sided chest pain secondary to above, improving 3 acute hypoxic respiratory failure , improving 4 acute BiPAP dependent respiratory failure, recovered 5 leukocytosis, improving 6 morbid obesity 7 hypertension 8 degenerative arthritis 9 bronchitis that was treated approximately a week ago on outpatient basis with a combination of Zithromax and prednisone burst taper Recommendation: Continue present treatment plan including broad-spectrum antibiotics, continue Lasix and Solu-Medrol, and Gram stain from the pleural effusion seems to be negative so far, however there is moderate polymorphonuclear leukocytes, patient remains on antibiotics as per infectious disease, discharge planning is in progress and antibiotics will be tailored accordingly on outpatient basis by infectious disease on the case. We'll continue to follow. Time with Patient: Less than 30
[2016-12-03 17:06] LABS: Glucose,Whole Blood 152 mg/dL (75-99)
[2016-12-03] MEDS: LEVOFLOXACIN 750 MG TAB PO SCH (17:39)
[2016-12-03] MEDS: SODIUM CHLORIDE 0.9% 1,000 ML IV SCH (17:39)
--- NOTE | 2016-12-03 20:32 | P.PN ---
Subjective patient is a 56-year-old male patient, who got moved to the intensive care unit yesterday because of worsening shortness of breath and bilateral pneumonia. This patient was in a good state of health until approximately 10 days ago when he developed symptoms of acute bronchitis. He contacted his primary care physician, Dr. Farrar, who gave him a Z-Avery and a Medrol Dosepak. Patient continued to deteriorate and presented to [facility] chest x-ray revealed evidence of pneumonia he was initially admitted to telemetry floor and subsequently transferred to intensive care unit due to worsening shortness of breath patient was initially started on BiPAP. Patient had right sided pleural effusion and empyema was suspected, he underwent chest tube placement today. Case was discussed in details with Dr. Moscoso Objective - Vital Signs Vital signs: Vital Signs Temp 97.1 F L 12/03/16 08:00 Pulse 84 12/03/16 20:15 Resp 16 12/03/16 20:15 BP 116/67 12/03/16 16:00 Pulse Ox 96 12/03/16 16:00 Intake & Output 12/03/16 12/03/16 12/04/16 06:59 18:59 06:59 Intake Total 1420 Output Total 600 350 Balance -600 1070 Weight 178.3 kg Intake: IV 60 Sodium Chloride 0.9% 1, 60 000 ml @ 20 mls/hr IV . Q24H [facility] Rx#:[id number] Intake, IV Titration 500 Amount Vancomycin 2,250 mg In 500 Sodium Chloride 0.9% 500 ml @ 167 mls/hr IVPB Q8H [facility] Rx#:[id number] Oral 860 Output: Urine 600 350 Other: Voiding Method Urinal - Exam In general patient is alert and oriented 3 in no apparent distress HEENT head normocephalic and atraumatic Neck is supple no JVD no goiter no lymphadenopathy Chest exam reveals tachypnea with scattered crackles in both lung polk no wheezing Cardiac exam reveals tachycardia with S1 and S2 regular rhythm no gallops no murmurs Abdomen is soft nontender no organomegaly Extremity exam reveals no edema no cyanosis or clubbing Neurological examination reveals no focal deficit Skin exam reveals no open ulcers no rashes or ecchymoses - Labs CBC & Chem 7: 12/03/16 06:10 12/03/16 06:10 Labs: Abnormal Lab Results - Last 24 Hours (Table) 12/02/16 12/03/16 12/03/16 Range/Units 20:53 06:10 06:10 WBC 12.3 H (3.8-10.6) k/uL RBC 4.26 L (4.30-5.90) m/uL Neutrophils # 10.6 H (1.3-7.7) k/uL Glucose 108 H (74-99) mg/dL POC Glucose (mg/dL) 106 H (75-99) mg/dL Calcium 7.7 L (8.4-10.2) mg/dL Magnesium 2.4 H (1.6-2.3) mg/dL 12/03/16 12/03/16 12/03/16 Range/Units 06:27 12:30 17:01 WBC (3.8-10.6) k/uL RBC (4.30-5.90) m/uL Neutrophils # (1.3-7.7) k/uL Glucose (74-99) mg/dL POC Glucose (mg/dL) 112 H 105 H 152 H (75-99) mg/dL Calcium (8.4-10.2) mg/dL Magnesium (1.6-2.3) mg/dL Microbiology - Last 24 Hours (Table) 11/27/16 14:06 Blood Culture - Final Blood No Growth after 144 hours 11/29/16 11:35 Gram Stain - Final Pleural Fluid Body Fluid Culture - Final Assessment and Plan Plan: 1. Acute bilateral pneumonia: Chest x-ray from this morning shows worsening consolidation and pleural effusion. Case was discussed with pulmonary service. There are concerns about a possible empyema. Computed tomography scan shows no large saddle central PE. Does show a fairly moderate size non-simple right- sided pleural effusion or fluid collection. With a right lower lung atelectasis or consolidation. And right paratracheal density is loculated or non-simple right-sided pleural effusion fluid. Both vascular surgery and infectious disease have been consulted. Blood cultures have been ordered. Continue with antibiotics including Levaquin and Zosyn and vancomycin patient underwent chest tube placement, chest tube accidentally pulled out by patient. Computed tomography scan of the chest ordered to reassess. 2. Pneumonia with sepsis: Patient was tachycardic, leukocytosis, and febrile on admission. Continue with antibiotics and IV fluids 3. Acute pleuritic right-sided chest pain likely related to the pneumonia. Continue current pain medication 4. Acute hypoxic respiratory failure secondary to pneumonia or possible empyema. Continue to monitor patient did require BiPAP in the morning. Currently on a nonrebreather 5. Morbid obesity 6. Essential hypertension with pressures are stable 7. Degenerative disc disease 8. Bronchitis that was treated about a week ago with Z-Avery and prednisone taper DVT prophylaxis Lovenox and GI prophylaxis Protonix
[2016-12-03 21:13] LABS: Glucose,Whole Blood 160 mg/dL (75-99)
--- NOTE | 2016-12-03 22:06 | P.PN ---
Subjective Principal diagnosis: pneumonia shortness of breath 56-year-old male who has a known history of obesity and hypertension presents to the emergency center because of a week history of increasing illness. Approximately a week ago he had an acute bout of bronchitis. He felt very poorly and was seen by his primary care physician. He received a course of azithromycin and a medrol Dosepak. He relates that he did have some improvement of his cough and sputum production. He however is now developed the significant change of his status. Developed severe right-sided pain to his chest. Stabbing in nature. The socio- significant shortness of breath. Tachycardia. As well as a fever of 101.9. He was brought to Hospital by EMS and is now been admitted. Evidence of sepsis and was brought to the intensive care unit. He did have evidence of respiratory failure requiring BiPAP use. Also required pain medications and sedation for his significant anxiety and agitation from his shortness of breath and pain. Certainly feeling somewhat better today. Computed tomography scan failed to reveal evidence of a pulmonary embolus. But there is evidence of pneumonia and likely a right pleural effusion which could be empyema given his symptoms. The patient has now had the percutaneous drainage catheter placed into his pleural space. A large amount of purulent material has been drained. Sent to the laboratory for culture. He is feeling better today. His fevers, chills or shortness of breath have all improved. He has been moved to stepdown, he is feeling considerably better but still very short of breath with activity. Oxygen is now 3 L nasal cannula. His severe pain to the chest is improved of the chest tube has been removed, [place], accidentall The follow up CT does not reveal a large effusion and pneumonia improving. Objective - Vital Signs Vital signs: Vital Signs Temp 96.9 F L 12/03/16 20:00 Pulse 84 12/03/16 20:15 Resp 16 12/03/16 20:15 BP 142/65 12/03/16 20:00 Pulse Ox 93 L 12/03/16 20:00 Intake & Output 12/03/16 12/03/16 12/04/16 06:59 18:59 06:59 Intake Total 1420 500 Output Total 600 350 Balance -600 1070 500 Weight 178.3 kg Intake: IV 60 500 Sodium Chloride 0.9% 1, 60 000 ml @ 20 mls/hr IV . Q24H [facility] Rx#:[id number] Vancomycin 2,250 mg In 500 Sodium Chloride 0.9% 500 ml @ 167 mls/hr IVPB Q8H [facility] Rx#:[id number] Intake, IV Titration 500 Amount Vancomycin 2,250 mg In 500 Sodium Chloride 0.9% 500 ml @ 167 mls/hr IVPB Q8H [facility] Rx#:[id number] Oral 860 Output: Urine 600 350 Other: Voiding Method Urinal Urinal - Exam Pleasant obese 56-year-old male who is now much more comfortable. Pleural catheter has been removed. HEENT: Anicteric conjunctiva are pink and moist nasal mucosa grossly intact without significant lesions, there is no thrush. Neck: The neck is supple without significant lymphadenopathy or thyromegaly. Lungs: Symmetrical air entry. Expiratory wheeze. Crackles at the right base. A few bronchial sounds at the right base. No significant percussion tenderness to the right chest. No significant egophony be appreciated Heart: Regular rate and rhythm with an audible S1-S2, no S3 no S4. There is no significant murmur click or rub, PMI was nondisplaced. Abdomen: Obese Positive bowel sounds soft and nontender without palpable masses or organomegaly. There was no guarding or rebound. Extremities: The upper extremities have excellent pulses they are symmetric, no significant petechiae or telangiectasia. No splinter hemorrhages were noted. The lower extremities are free from significant edema. The peripheral pulses were 2+ and symmetric. Neuro: Awake alert oriented to person place and time. There are no acute new gross focal sensory motor deficits. - Labs CBC & Chem 7: 12/03/16 06:10 12/03/16 06:10 Labs: Abnormal Lab Results - Last 24 Hours (Table) 12/03/16 12/03/16 12/03/16 Range/Units 06:10 06:10 06:27 WBC 12.3 H (3.8-10.6) k/uL RBC 4.26 L (4.30-5.90) m/uL Neutrophils # 10.6 H (1.3-7.7) k/uL Glucose 108 H (74-99) mg/dL POC Glucose (mg/dL) 112 H (75-99) mg/dL Calcium 7.7 L (8.4-10.2) mg/dL Magnesium 2.4 H (1.6-2.3) mg/dL 12/03/16 12/03/16 12/03/16 Range/Units 12:30 17:01 21:11 WBC (3.8-10.6) k/uL RBC (4.30-5.90) m/uL Neutrophils # (1.3-7.7) k/uL Glucose (74-99) mg/dL POC Glucose (mg/dL) 105 H 152 H 160 H (75-99) mg/dL Calcium (8.4-10.2) mg/dL Magnesium (1.6-2.3) mg/dL Microbiology - Last 24 Hours (Table) 11/27/16 14:06 Blood Culture - Final Blood No Growth after 144 hours 11/29/16 11:35 Gram Stain - Final Pleural Fluid Body Fluid Culture - Final Laboratory Results WBC 12.3 k/uL (3.8-10.6) H 12/03/16 06:10 RBC 4.26 m/uL (4.30-5.90) L 12/03/16 06:10 Hgb 13.3 gm/dL (13.0-17.5) 12/03/16 06:10 Hct 41.7 % (39.0-53.0) 12/03/16 06:10 MCV 97.7 fL (80.0-100.0) 12/03/16 06:10 MCH 31.1 pg (25.0-35.0) 12/03/16 06:10 MCHC 31.8 g/dL (31.0-37.0) 12/03/16 06:10 RDW 13.5 % (11.5-15.5) 12/03/16 06:10 Plt Count 295 k/uL (150-450) 12/03/16 06:10 Neutrophils % 86 % 12/03/16 06:10 Neutrophils % (Manual) 90.0 % 11/27/16 14:06 Lymphocytes % 9 % 12/03/16 06:10 Lymphocytes % (Manual) 7.0 % 11/27/16 14:06 Monocytes % 4 % 12/03/16 06:10 Monocytes % (Manual) 3.0 % 11/27/16 14:06 Eosinophils % 1 % 12/03/16 06:10 Basophils % 0 % 12/03/16 06:10 Neutrophils # 10.6 k/uL (1.3-7.7) H 12/03/16 06:10 Neutrophils # (Manual) 23.2 k/uL (1.3-7.7) H 11/27/16 14:06 Lymphocytes # 1.1 k/uL (1.0-4.8) 12/03/16 06:10 Lymphocytes # (Manual) 1.8 k/uL (1.0-4.8) 11/27/16 14:06 Monocytes # 0.5 k/uL (0-1.0) 12/03/16 06:10 Monocytes # (Manual) 0.8 k/uL (0-1.0) 11/27/16 14:06 Eosinophils # 0.1 k/uL (0-0.7) 12/03/16 06:10 Basophils # 0.0 k/uL (0-0.2) 12/03/16 06:10 Nucleated RBCs 0 /100 WBC (0-0) 11/27/16 14:06 RBC Morphology Normal 11/27/16 14:06 Macrocytosis Slight 12/02/16 03:56 PT 11.4 sec (9.0-12.0) 11/27/16 20:18 INR 1.1 (<1.1) 11/27/16 20:18 APTT 28.9 sec (22.0-30.0) 11/27/16 20:18 D-Dimer 0.80 mg/L FEU (<0.60) H 11/27/16 20:18 Sample Site LRAD 11/28/16 05:59 ABG pH 7.38 (7.35-7.45) 11/28/16 05:59 ABG pCO2 40 mmHg (35-45) 11/28/16 05:59 ABG pO2 84 mmHg (83-108) 11/28/16 05:59 ABG HCO3 23 mmol/L (21-25) 11/28/16 05:59 ABG Total CO2 24 mmol/L (19-24) 11/28/16 05:59 ABG O2 Saturation 96.0 % (94-97) 11/28/16 05:59 ABG Base Excess -1.4 mmol/L 11/28/16 05:59 FiO2 100 % 11/28/16 05:59 Sodium 139 mmol/L (137-145) 12/03/16 06:10 Potassium 4.7 mmol/L (3.5-5.1) 12/03/16 06:10 Chloride 105 mmol/L (98-107) 12/03/16 06:10 Carbon Dioxide 27 mmol/L (22-30) 12/03/16 06:10 Anion Gap 7 mmol/L 12/03/16 06:10 BUN 16 mg/dL (9-20) 12/03/16 06:10 Creatinine 0.69 mg/dL (0.66-1.25) 12/03/16 06:10 Est GFR (MDRD) Af Amer >60 (>60 ml/min/1.73 sqM) 12/03/16 06:10 Est GFR (MDRD) Non-Af >60 (>60 ml/min/1.73 sqM) 12/03/16 06:10 Glucose 108 mg/dL (74-99) H 12/03/16 06:10 POC Glucose (mg/dL) 160 mg/dL (75-99) H 12/03/16 21:11 POC Glu Crisis Worker ID Giuliana Martini 12/03/16 21:[address] Glu mg/dL 123 mg/dL 11/28/16 05:08 Hemoglobin A1c 5.9 % (4.2-6.1) 11/28/16 05:08 Plasma Lactic Acid Jaskaran 1.3 mmol/L (0.7-2.0) 11/27/16 20:14 Calcium 7.7 mg/dL (8.4-10.2) L 12/03/16 06:10 Ionized Calcium Елена 4.9 mg/dL (4.5-5.3) 11/27/16 20:18 Phosphorus 3.3 mg/dL (2.5-4.5) 12/03/16 06:10 Magnesium 2.4 mg/dL (1.6-2.3) H 12/03/16 06:10 Total Bilirubin 0.7 mg/dL (0.2-1.3) 12/01/16 05:48 AST 38 U/L (17-59) 12/01/16 05:48 ALT 73 U/L (21-72) H 12/01/16 05:48 Alkaline Phosphatase 84 U/L (38-126) 12/01/16 05:48 Total Creatine Kinase 96 U/L (55-170) 11/27/16 14:06 CK-MB (CK-2) 5.9 ng/mL (0.0-2.4) H* 11/27/16 20:18 CK-MB (CK-2) Rel Index 7.3 11/27/16 14:06 Troponin I <0.012 ng/mL (0.000-0.034) 11/27/16 20:18 NT-Pro-B Natriuret Pep 97 pg/mL 11/27/16 14:06 Total Protein 5.4 g/dL (6.3-8.2) L 12/01/16 05:48 Albumin 2.9 g/dL (3.5-5.0) L 12/01/16 05:48 Amylase 35 U/L (30-110) 11/27/16 20:18 Lipase 94 U/L (23-300) 11/27/16 20:18 Urine Color Yellow 11/27/16 23:00 Urine Appearance Clear (Clear) 11/27/16 23:00 Urine pH 5.5 (5.0-8.0) 11/27/16 23:00 Ur Specific [place] 1.016 (1.001-1.035) 11/27/16 23:00 Urine Protein Negative (Negative) 11/27/16 23:00 Urine Glucose (UA) Negative (Negative) 11/27/16 23:00 Urine Ketones Negative (Negative) 11/27/16 23:00 Urine Blood Negative (Negative) 11/27/16 23:00 Urine Nitrite Negative (Negative) 11/27/16 23:00 Urine Bilirubin 1+ (Negative) H 11/27/16 23:00 Urine Urobilinogen <2.0 mg/dL (<2.0) 11/27/16 23:00 Ur Leukocyte Esterase Negative (Negative) 11/27/16 23:00 Fluid Source 11/29/16 11:35 Fluid Appearance Cloudy 11/29/16 11:35 Fluid RBC 6500 /uL 11/29/16 11:35 Fluid Nucleated Cells 2100 /uL 11/29/16 11:35 Fluid Polynuclear WBCs 90 % 11/29/16 11:35 Fluid Mononuclear WBCs 10 % 11/29/16 11:35 Body Fluid Glucose Source Body Fluid 11/29/16 11:35 Fluid Glucose 45 mg/dL 11/29/16 11:35 Body Fluid Protein Source Body Fluid 11/29/16 11:35 Fluid Total Protein 4800 mg/dL 11/29/16 11:35 Body Fluid LDH Source Body Fluid 11/29/16 11:35 Fluid Cholesterol 103 mg/dL 11/29/16 11:35 Fl Cholesterol Source Body Fluid 11/29/16 11:35 Vancomycin Trough 19.1 ug/mL 12/02/16 03:56 Urine Legionella Ag Not detected (Not detected) 11/28/16 11:45 Virus Source See Below 11/29/16 11:35 Viral Test See Below 11/29/16 11:35 Virus Analysis Interp See Below 11/29/16 11:35 Microbiology 11/27/16 14:06 Blood Blood Culture - Final No Growth after 144 hours 11/29/16 11:35 Pleural Fluid Gram Stain - Final 11/29/16 11:35 Pleural Fluid Body Fluid Culture - Final 11/30/16 04:30 Sputum Gram Stain - Final 11/30/16 04:30 Sputum Sputum Culture - Final Kourtney albicans 11/29/16 11:35 Lung Aspirate - Right Acid Fast Bacilli Smear - Final 11/29/16 11:35 Lung Aspirate - Right Acid Fast Bacilli Culture - Preliminary 11/29/16 11:35 Lung Aspirate - Right Fungal Culture - Preliminary 11/27/16 23:00 Urine,Catheterized Urine Culture - Final 11/28/16 11:20 Sputum Gram Stain - Final 11/28/16 11:20 Sputum Sputum Culture - Final Assessment and Plan (1) Acute respiratory failure with hypoxia Narrative/Plan: 56-year-old male presents to Hospital significant shortness of breath cough or sputum production and severe right-sided chest pain. Imaging studies reveal evidence of sher pneumonia and likely fluid collection and possible empyema but no pulmonary embolus. Receiving extensive antibiotic therapy at this time all cultures are process with piperacillin tazobactam and Levaquin with concerns to gram-negative pneumonia. The patient is not a significant alcohol user and aspiration pneumonia is not a concern at this time. Could also have routine Streptococcus pneumoniae with results pleural effusion which is common and potential empyema. Case discussed with cardio thoracic surgery. Patient has had percutaneous drainage of the empyema. Pleural catheter has been removed. Patient shows marked improvement. Cultures are in process and will further direct antibiotic therapy, leukocytosis due to the significant sepsis and steroid use is improving. Pain is much improved. Still requiring O2 therapy. Follow up xray will further direct next plans. With the negative cultures becoming more likely was Strep. Status: Acute (2) Morbid obesity with BMI of 50.0-59.9, adult Status: Acute (3) Gram-negative pneumonia Status: Acute (4) Empyema lung Status: Acute
[2016-12-04] MEDS: HYDROmorphone 1 MG/ML 1 ML SYRINGE IVP PRN (00:28)
[2016-12-04] MEDS: VANCOMYCIN 2,250 MG in SODIUM CHLORIDE 0.9% 500 ML IVPB SCH ×2 (01:12→08:11)
[2016-12-04] MEDS: PIPERACILLIN-TAZOBACTAM 3.375 GM in DEXTROSE/WATER 1 50ML.BAG IVPB SCH ×2 (04:46→12:27)
[2016-12-04 06:21] LABS: Glucose,Whole Blood 100 mg/dL (75-99)
[2016-12-04] MEDS: INSULIN LISPRO (humaLOG) 300 UNIT/3 ML VIAL SQ SCH ×4 (06:27→20:49)
[2016-12-04] MEDS: PANTOPRAZOLE 40 MG TABLET PO SCH (06:30)
[2016-12-04 07:24] LABS: Basophils % (A) 0 %; CH 31.2; CHCM 31.9; Eosinophils # (A) 0.2 k/uL (0-0.7); Eosinophils % (A) 1 %; HCT 42.3 % (39.0-53.0); HDW 2.11; HGB 13.3 gm/dL (13.0-17.5); Luc # (Auto) 0.14; Luc % (Auto) 1; Lymphocytes # (A) 1.6 k/uL (1.0-4.8); Lymphocytes % (A) 10 %; MCHC 31.5 g/dL (31.0-37.0); MCV 98.3 fL (80.0-100.0); Mean Platelet Volume 6.7; Monocytes # (A) 0.5 k/uL (0-1.0); Monocytes % (A) 3 %; Neutrophils # (A) 12.7 k/uL (1.3-7.7); Neutrophils % (A) 84 %; RBC 4.31 m/uL (4.30-5.90); RDW 13.5 % (11.5-15.5); WBC 15.1 k/uL (3.8-10.6)
[2016-12-04 07:37] LABS: ALT 65 U/L (21-72); AST 22 U/L (17-59); Alkaline Phosphatase 67 U/L (38-126); Anion Gap 4 mmol/L; Blood Urea Nitrogen 14 mg/dL (9-20); Calcium 8.1 mg/dL (8.4-10.2); Carbon Dioxide 29 mmol/L (22-30); Chloride 104 mmol/L (98-107); Glucose 102 mg/dL (74-99); Non-African American GFR(MDRD) >60 (>60 ml/min/1.73 sqM); Potassium 4.8 mmol/L (3.5-5.1); Sodium 137 mmol/L (137-145); Total Bilirubin 0.9 mg/dL (0.2-1.3); Total Protein 5.5 g/dL (6.3-8.2)
[2016-12-04] MEDS: DOCUSATE 100 MG CAP PO SCH ×2 (08:03→18:56)
[2016-12-04] MEDS: ENOXAPARIN 40 MG/0.4 ML SYRINGE SQ SCH (08:11)
[2016-12-04] MEDS: ACETAMINOPHEN TAB 500 MG TAB PO PRN ×3 (08:11→21:54)
[2016-12-04] MEDS: HYDROCHLOROTHIAZIDE 12.5 MG CAP PO SCH (08:12)
[2016-12-04] MEDS: LISINOPRIL 20 MG TAB PO SCH (08:12)
[2016-12-04] MEDS: methylPREDNISolone SOD SUCCI 40 MG/ML 1 ML VIAL IV SCH ×2 (08:12→20:50)
[2016-12-04] MEDS: IPRATROPIUM-ALBUTEROL 3 ML NEB INHALATION SCH ×4 (09:03→19:18)
--- NOTE | 2016-12-04 09:31 | P.PN ---
Subjective Principal diagnosis: Loculated right pleural effusion POD #5 insertion of pigtail catheter by interventional radiology Patient's currently sitting up in the chair in no apparent distress. Pigtail catheter has been removed. Pt states he feels better every day and wants to go home. Objective - Vital Signs Vital signs: Vital Signs Temp 96.9 F L 12/04/16 08:00 Pulse 80 12/04/16 09:19 Resp 18 12/04/16 08:00 BP 133/88 12/04/16 08:00 Pulse Ox 95 12/04/16 08:00 Intake & Output 12/03/16 12/04/16 12/04/16 18:59 06:59 18:59 Intake Total 1420 1250 Output Total 350 Balance 1070 1250 Weight 178.6 kg Intake: IV 60 1250 Piperacillin-Tazobactam 3 50 .375 gm In Dextrose/Water 1 50ml.bag @ 12.5 mls/hr IVPB Q8HR [facility] Rx#: [id number] Sodium Chloride 0.9% 1, 60 200 000 ml @ 20 mls/hr IV . Q24H [facility] Rx#:[id number] Vancomycin 2,250 mg In 1000 Sodium Chloride 0.9% 500 ml @ 167 mls/hr IVPB Q8H [facility] Rx#:[id number] Intake, IV Titration 500 Amount Vancomycin 2,250 mg In 500 Sodium Chloride 0.9% 500 ml @ 167 mls/hr IVPB Q8H [facility] Rx#:[id number] Oral 860 Output: Urine 350 Other: Voiding Method Urinal Urinal # Voids 1 # Bowel Movements 1 - Constitutional General appearance: Present: cooperative, morbidly obese, no acute distress - Respiratory Details: Lungs sounds diminished bilaterally. Respirations even, nonlabored. Currently on 3 L nasal cannula with oxygen saturation 92%. Able to achieve 1500 mL on his incentive spirometry. - Cardiovascular Details: S1, S2 present. Regular rate and rhythm, normal sinus rhythm with occasional PVCs on telemetry. - Gastrointestinal Gastrointestinal Comment(s): Abdomen soft, nontender, nondistended, morbidly obese. Active bowel sounds 4 quadrants. Tolerating diet. - Genitourinary Genitourinary Comment(s): Continues to void clear, yellow urine - Musculoskeletal Musculoskeletal: Present: gait normal, strength equal bilaterally - Psychiatric Psychiatric: Present: A&O x's 3, appropriate affect, intact judgment & insight - Allied health notes Allied health notes reviewed: nursing - Labs CBC & Chem 7: 12/04/16 06:59 12/04/16 06:59 Labs: Abnormal Lab Results - Last 24 Hours (Table) 12/03/16 12/03/16 12/03/16 Range/Units 12:30 17:01 21:11 WBC (3.8-10.6) k/uL Neutrophils # (1.3-7.7) k/uL Glucose (74-99) mg/dL POC Glucose (mg/dL) 105 H 152 H 160 H (75-99) mg/dL Calcium (8.4-10.2) mg/dL Total Protein (6.3-8.2) g/dL Albumin (3.5-5.0) g/dL 12/04/16 12/04/16 12/04/16 Range/Units 06:18 06:59 06:59 WBC 15.1 H (3.8-10.6) k/uL Neutrophils # 12.7 H (1.3-7.7) k/uL Glucose 102 H (74-99) mg/dL POC Glucose (mg/dL) 100 H (75-99) mg/dL Calcium 8.1 L (8.4-10.2) mg/dL Total Protein 5.5 L (6.3-8.2) g/dL Albumin 2.9 L (3.5-5.0) g/dL Microbiology - Last 24 Hours (Table) 11/27/16 14:06 Blood Culture - Final Blood No Growth after 144 hours 11/29/16 11:35 Gram Stain - Final Pleural Fluid Body Fluid Culture - Final Assessment and Plan (1) Pleural effusion, right Status: Acute (2) Hypertension Status: Acute (3) Daily consumption of alcohol Status: Acute (4) Community acquired bacterial pneumonia Status: Acute (5) Acute respiratory failure with hypoxia Status: Acute (6) Morbid obesity with BMI of 50.0-59.9, adult Status: Acute Plan: 1. Continue current antibiotics/steroids per pulmonary services. 2. Wean O2 as tolerated. Encourage incentive spirometer use. 3. Medical management per primary service. 4. GI/DVT prophylaxis. 5. We have no plans for surgical intervention. Will continue to monitor as needed. Time with Patient: Greater than 30
[2016-12-04 11:30] LABS: Glucose,Whole Blood 79 mg/dL (75-99)
--- NOTE | 2016-12-04 11:49 | P.PN ---
Subjective Principal diagnosis: Acute Right lower lobe pneumonia and parapneumonic effusion/loculated 56-year-old obese male patient, who got moved to the intensive care unit yesterday because of worsening shortness of breath and bilateral pneumonia. This patient was in a good state of health until approximately 10 days ago when he developed symptoms of acute bronchitis. He contacted his primary care physician, Dr. Farrar, we'll give this patient a Z-Avery and a Medrol Dosepak. The patient also has albuterol solution for nebulizer as his has bronchial asthma. He did some albuterol treatment and he felt better. He completed his antibiotic course 6 days ago. Around 3 days ago he started developing severe acute pleuritic right-sided chest pain. The pain was severe to the point where the patient was unable to breathe 10. He felt hot and cold and there was no documented temperature. He became progressively short of breath and for that reason he was brought into the hospital. I reviewed a series of chest x-rays that were done since admission. There is obvious progression to the point where the patient has developed severe consolidation of the right lower lobe in addition to some infiltration of the left lower lobe and possibly a pleural effusion on the right is suspected. Empyema cannot be completely ruled out. The lung volumes are small. The patient has no hemoptysis. He is coughing out minimal amount of sputum. His white cell count is elevated. Overnight he was placed on a BiPAP at a pressure of 10 over 5 and currently is on 100% nonrebreather facemask with an oxygen saturation of 95%. He has no change in mental status. No previous pneumonias. He has remote history of MRSA infection in his right foot which got treated. No aspiration. No travel history. No smoking. No 70 chronic lung disease. He has features of obstructive sleep apnea however this has not been demonstrated or studies further. He is currently on a combination of Zosyn and Levaquin. On 11/29/2016 the patient is being seen in follow-up. The patient has an extensive right lung pneumonia with multiloculated right-sided pleural effusion. The patient was having severe pleurisy. The patient was covered with broad-spectrum antibiotics including a combination of Zosyn, Levaquin and vancomycin. The CAT scan of the chest that was done earlier was reviewed and the patient has a moderate-sized right-sided pleural effusion collection patient has not completely day or and there is obvious loculation. There is also compressive atelectasis of the right lung base. Based on all this, I discussed the case with the cardiac thoracic surgeon and I sent this patient to interventional radiology where a pigtail catheter was inserted to the right lung and a total of 250 mL of fluid has been aspirated already at the pigtail catheter is draining into the pleural VAC. Clinically the patient is doing well. He is on 15 L of oxygen nasal cannula. White cell count is still elevated. First is improved. No hypotension. No nausea. No vomiting. No other complaints including the absence of any mental status change. Cultures of been all negative thus far. Chest x-ray from earlier this morning shows opacification of lower two third of the right lung field. On 11/30/2016 the patient is feeling much better. The right-sided pleuritic chest and is pretty much recovered. Despite the x-ray reports, the chest tube on the right side is still in place and is draining adequate amount of fluid in the right lung has expanded nicely. Hemodynamically stable. The patient is down to 4ls of oxygen nasal cannula. White cell count is improving. No evidence of any empyema at this point. Remains on broad-spectrum antibiotics. Hemodynamically stable. On 12/01/2016, the patient is still doing okay. He has no major respiratory distress. Unfortunately, while standing up and going to the bathroom the patient stepped on his tube and the pigtail catheter came out of his pleural space. The chest x-ray from today is still showing some residual effusion the right lung base and consolidation. The volume status however has improved. He is afebrile. He is on oxygen at 4 L per minute nasal cannula and his white cell count is dropped down to 15. He is afebrile. He is doing well. No nausea. No vomiting. No other complaints otherwise. On 12/02/2016, patient continues to do relatively well, he is scheduled to have a PICC line placement today, and eventually be discharged on IV antibiotics given on outpatient basis via PICC line. In the meantime patient seems to be afebrile, in no distress, O2 sat is 96% on 6 L nasal cannula. Blood pressure is stable. Heart rate is 70. Labs showed relatively normal basic metabolic profile and a relatively normal CBC, WBC count is 11.7. Reevaluated today on 12/03/2016, patient already has a PICC line placed yesterday , patient remains on IV antibiotics as per infectious disease on the case, doing well overall. Continues to have intermittent episodes of dry hacking cough, no wheezing, no fever, no chills, no hemoptysis. CBC was reviewed basic metabolic profile was also reviewed and they seem to be relatively unremarkable. Reevaluated today on 12/04/2016, patient seems to be doing quite well, PICC line is functioning well, still receiving antibiotics for his pneumonia and parapneumonic effusion. Patient is afebrile, vital signs are stable. Patient is being followed by Dr. Molina on consultation, and arrangements will likely be made for IV antibiotics on outpatient basis. 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 Objective - Vital Signs Vital signs: Vital Signs Temp 96.9 F L 12/04/16 08:00 Pulse 80 12/04/16 09:19 Resp 18 12/04/16 08:00 BP 133/88 12/04/16 08:00 Pulse Ox 95 12/04/16 08:00 Intake & Output 12/03/16 12/04/16 12/04/16 18:59 06:59 18:59 Intake Total 1420 1250 Output Total 350 900 Balance 1070 1250 -900 Weight 178.6 kg Intake: IV 60 1250 Piperacillin-Tazobactam 3 50 .375 gm In Dextrose/Water 1 50ml.bag @ 12.5 mls/hr IVPB Q8HR [facility] Rx#: [id number] Sodium Chloride 0.9% 1, 60 200 000 ml @ 20 mls/hr IV . Q24H [facility] Rx#:[id number] Vancomycin 2,250 mg In 1000 Sodium Chloride 0.9% 500 ml @ 167 mls/hr IVPB Q8H [facility] Rx#:[id number] Intake, IV Titration 500 Amount Vancomycin 2,250 mg In 500 Sodium Chloride 0.9% 500 ml @ 167 mls/hr IVPB Q8H [facility] Rx#:[id number] Oral 860 Output: Urine 350 900 Other: Voiding Method Urinal Urinal # Voids 1 2 # Bowel Movements 1 - Exam Physical Exam: Revealed a morbidly obese white male, in no distress. HEENT:[Neck is supple.] [No neck masses.] [No thyromegaly.] [No JVD.] Mallampati class IV is noted. Chest: Diminished breath sounds at the bases especially on the right base, no crackles or rhonchi or wheezes, no catheter was noted.] Cardiac Exam: [Normal S1 and S2, no S3 gallop, no murmur.] Abdomen: [Soft, nontender, no megaly, no rebound, no guarding, normal bowel sounds.] Extremities: [No clubbing, no edema, no cyanosis.] Neurological Exam: [No focal neurologic deficit.] - Labs CBC & Chem 7: 12/04/16 06:59 12/04/16 06:59 Labs: Abnormal Lab Results - Last 24 Hours (Table) 12/03/16 12/03/16 12/03/16 Range/Units 12:30 17:01 21:11 WBC (3.8-10.6) k/uL Neutrophils # (1.3-7.7) k/uL Glucose (74-99) mg/dL POC Glucose (mg/dL) 105 H 152 H 160 H (75-99) mg/dL Calcium (8.4-10.2) mg/dL Total Protein (6.3-8.2) g/dL Albumin (3.5-5.0) g/dL 12/04/16 12/04/16 12/04/16 Range/Units 06:18 06:59 06:59 WBC 15.1 H (3.8-10.6) k/uL Neutrophils # 12.7 H (1.3-7.7) k/uL Glucose 102 H (74-99) mg/dL POC Glucose (mg/dL) 100 H (75-99) mg/dL Calcium 8.1 L (8.4-10.2) mg/dL Total Protein 5.5 L (6.3-8.2) g/dL Albumin 2.9 L (3.5-5.0) g/dL Microbiology - Last 24 Hours (Table) 11/27/16 14:06 Blood Culture - Final Blood No Growth after 144 hours 11/29/16 11:35 Gram Stain - Final Pleural Fluid Body Fluid Culture - Final Assessment and Plan Plan: 1 acute bilateral pneumonia with interval progression and worsening in the consolidation of the right lower lobe with possibly development of a loculated right-sided pleural effusion with right basilar compressive atelectasis. The patient is status post pigtail catheter insertion with adequate evacuation of the right-sided pleural effusion and the tube drained adequately the pleural fluid and unfortunately it accidentally came out. The chest x-ray from today shows residual consolidation and effusion the right lung base and I suspect there is some residual loculation. 2 acute pleuritic right-sided chest pain secondary to above, improving 3 acute hypoxic respiratory failure , improving 4 acute BiPAP dependent respiratory failure, recovered 5 leukocytosis, improving 6 morbid obesity 7 hypertension 8 degenerative arthritis 9 bronchitis that was treated approximately a week ago on outpatient basis with a combination of Zithromax and prednisone burst taper Recommendation: Continue present treatment plan including broad-spectrum antibiotics, continue Lasix and Solu-Medrol, and Gram stain from the pleural effusion seems to be negative so far, however there is moderate polymorphonuclear leukocytes, patient remains on antibiotics as per infectious disease, discharge planning is in progress and antibiotics will be tailored accordingly on outpatient basis by infectious disease on the case. We'll continue to follow. Time with Patient: Less than 30
[2016-12-04] MEDS: LEVOFLOXACIN 750 MG TAB PO SCH (14:30)
[2016-12-04] MEDS: SODIUM CHLORIDE 0.9% 1,000 ML IV SCH (14:31)
[2016-12-04] MEDS ORDERED: VANCOMYCIN 2,250 MG in SODIUM CHLORIDE 0.9% 500 ML IVPB SCH (16:00)
[2016-12-04 16:48] LABS: Glucose,Whole Blood 110 mg/dL (75-99)
--- NOTE | 2016-12-04 19:26 | P.PN ---
Subjective patient is a 56-year-old male patient, who got moved to the intensive care unit yesterday because of worsening shortness of breath and bilateral pneumonia. This patient was in a good state of health until approximately 10 days ago when he developed symptoms of acute bronchitis. He contacted his primary care physician, Dr. Farrar, who gave him a Z-Avery and a Medrol Dosepak. Patient continued to deteriorate and presented to [facility] chest x-ray revealed evidence of pneumonia he was initially admitted to telemetry floor and subsequently transferred to intensive care unit due to worsening shortness of breath patient was initially started on BiPAP. Patient had right sided pleural effusion and empyema was suspected, he underwent chest tube placement today. Case was discussed in details with Dr. Moscoso Objective - Vital Signs Vital signs: Vital Signs Temp 96.9 F L 12/04/16 16:00 Pulse 84 12/04/16 19:18 Resp 18 12/04/16 16:00 BP 142/74 12/04/16 16:00 Pulse Ox 94 L 12/04/16 16:00 Intake & Output 12/04/16 12/04/16 12/05/16 06:59 18:59 06:59 Intake Total 1250 0 Output Total 2049 Balance 1250 0 Weight 178.6 kg Intake: IV 1250 910 Piperacillin-Tazobactam 3 50 100 .375 gm In Dextrose/Water 1 50ml.bag @ 12.5 mls/hr IVPB Q8HR [facility] Rx#: [id number] Sodium Chloride 0.9% 1, 200 60 000 ml @ 20 mls/hr IV . Q24H [facility] Rx#:[id number] Vancomycin 2,250 mg In 1000 750 Sodium Chloride 0.9% 500 ml @ 167 mls/hr IVPB Q8H [facility] Rx#:[id number] Oral 1140 Output: Urine 2049 Other: Voiding Method Urinal Urinal # Voids 1 2 # Bowel Movements 1 1 - Exam In general patient is alert and oriented 3 in no apparent distress HEENT head normocephalic and atraumatic Neck is supple no JVD no goiter no lymphadenopathy Chest exam reveals tachypnea with scattered crackles in both lung [place] no wheezing Cardiac exam reveals tachycardia with S1 and S2 regular rhythm no gallops no murmurs Abdomen is soft nontender no organomegaly Extremity exam reveals no edema no cyanosis or clubbing Neurological examination reveals no focal deficit Skin exam reveals no open ulcers no rashes or ecchymoses - Labs CBC & Chem 7: 12/04/16 06:59 12/04/16 06:59 Labs: Abnormal Lab Results - Last 24 Hours (Table) 12/03/16 12/04/16 12/04/16 Range/Units 21:11 06:18 06:59 WBC 15.1 H (3.8-10.6) k/uL Neutrophils # 12.7 H (1.3-7.7) k/uL Glucose (74-99) mg/dL POC Glucose (mg/dL) 160 H 100 H (75-99) mg/dL Calcium (8.4-10.2) mg/dL Total Protein (6.3-8.2) g/dL Albumin (3.5-5.0) g/dL 12/04/16 12/04/16 Range/Units 06:59 16:31 WBC (3.8-10.6) k/uL Neutrophils # (1.3-7.7) k/uL Glucose 102 H (74-99) mg/dL POC Glucose (mg/dL) 110 H (75-99) mg/dL Calcium 8.1 L (8.4-10.2) mg/dL Total Protein 5.5 L (6.3-8.2) g/dL Albumin 2.9 L (3.5-5.0) g/dL Microbiology - Last 24 Hours (Table) 11/27/16 14:06 Blood Culture - Final Blood No Growth after 144 hours Assessment and Plan Plan: 1. Acute bilateral pneumonia: Chest x-ray from this morning shows worsening consolidation and pleural effusion. Case was discussed with pulmonary service. There are concerns about a possible empyema. Computed tomography scan shows no large saddle central PE. Does show a fairly moderate size non-simple right- sided pleural effusion or fluid collection. With a right lower lung atelectasis or consolidation. And right paratracheal density is loculated or non-simple right-sided pleural effusion fluid. Both vascular surgery and infectious disease have been consulted. Blood cultures have been ordered. Continue with antibiotics including Levaquin and Zosyn and vancomycin patient underwent chest tube placement, chest tube accidentally pulled out by patient. Computed tomography scan of the chest ordered to reassess. 2. Pneumonia with sepsis: Patient was tachycardic, leukocytosis, and febrile on admission. Continue with antibiotics and IV fluids 3. Acute pleuritic right-sided chest pain likely related to the pneumonia. Continue current pain medication 4. Acute hypoxic respiratory failure secondary to pneumonia or possible empyema. Continue to monitor patient did require BiPAP in the morning. Currently on a nonrebreather 5. Morbid obesity 6. Essential hypertension with pressures are stable 7. Degenerative disc disease 8. awaiting antibiotic recommendation by Dr. Molina possible discharge to home in the next 1-2 days DVT prophylaxis Lovenox and GI prophylaxis Protonix
[2016-12-04] MEDS: cefTRIAXone 2,000 MG in SODIUM CHLORIDE 0.9% 100 ML IVPB SCH (19:51)
[2016-12-04] MEDS ORDERED: PIPERACILLIN-TAZOBACTAM 3.375 GM in DEXTROSE/WATER 1 50ML.BAG IVPB SCH (20:00)
[2016-12-04 20:46] LABS: Glucose,Whole Blood 121 mg/dL (75-99)
--- NOTE | 2016-12-04 20:53 | P.PN ---
Subjective Principal diagnosis: pneumonia shortness of breath 56-year-old male who has a known history of obesity and hypertension presents to the emergency center because of a week history of increasing illness. Approximately a week ago he had an acute bout of bronchitis. He felt very poorly and was seen by his primary care physician. He received a course of azithromycin and a medrol Dosepak. He relates that he did have some improvement of his cough and sputum production. He however is now developed the significant change of his status. Developed severe right-sided pain to his chest. Stabbing in nature. The socio- significant shortness of breath. Tachycardia. As well as a fever of 101.9. He was brought to Hospital by EMS and is now been admitted. Evidence of sepsis and was brought to the intensive care unit. He did have evidence of respiratory failure requiring BiPAP use. Also required pain medications and sedation for his significant anxiety and agitation from his shortness of breath and pain. Certainly feeling somewhat better today. Computed tomography scan failed to reveal evidence of a pulmonary embolus. But there is evidence of pneumonia and likely a right pleural effusion which could be empyema given his symptoms. The patient has now had the percutaneous drainage catheter placed into his pleural space. A large amount of purulent material has been drained. Sent to the laboratory for culture. He is feeling better today. His fevers, chills or shortness of breath have all improved. He has been moved to stepdown, he is feeling considerably better but still very short of breath with activity. Oxygen is now 3 L nasal cannula. His severe pain to the chest is improved of the chest tube has been removed, [place], accidentall The follow up CT does not reveal a large effusion and pneumonia improving. Continues to have improvement today. Less short of breath. The better with ambulation. Was having some lower extremity edema. No other new acute complaints. Objective - Vital Signs Vital signs: Vital Signs Temp 96.9 F L 12/04/16 16:00 Pulse 88 12/04/16 19:31 Resp 18 12/04/16 16:00 BP 142/74 12/04/16 16:00 Pulse Ox 94 L 12/04/16 16:00 Intake & Output 12/04/16 12/04/16 12/05/16 06:59 18:59 06:59 Intake Total 1249 2049 Output Total 2049 Balance 1250 0 Weight 178.6 kg Intake: IV 1250 910 Piperacillin-Tazobactam 3 50 100 .375 gm In Dextrose/Water 1 50ml.bag @ 12.5 mls/hr IVPB Q8HR [facility] Rx#: [id number] Sodium Chloride 0.9% 1, 200 60 000 ml @ 20 mls/hr IV . Q24H [facility] Rx#:[id number] Vancomycin 2,250 mg In 1000 750 Sodium Chloride 0.9% 500 ml @ 167 mls/hr IVPB Q8H [facility] Rx#:[id number] Oral 1140 Output: Urine 2049 Other: Voiding Method Urinal Urinal # Voids 1 2 # Bowel Movements 1 1 - Exam Pleasant obese 56-year-old male who is now much more comfortable. Pleural catheter has been removed. HEENT: Anicteric conjunctiva are pink and moist nasal mucosa grossly intact without significant lesions, there is no thrush. Neck: The neck is supple without significant lymphadenopathy or thyromegaly. Lungs: Symmetrical air entry. Expiratory wheeze. Crackles at the right base. A few bronchial sounds at the right base. No significant percussion tenderness to the right chest. No significant egophony be appreciated Heart: Regular rate and rhythm with an audible S1-S2, no S3 no S4. There is no significant murmur click or rub, PMI was nondisplaced. Abdomen: Obese Positive bowel sounds soft and nontender without palpable masses or organomegaly. There was no guarding or rebound. Extremities: The upper extremities have excellent pulses they are symmetric, no significant petechiae or telangiectasia. No splinter hemorrhages were noted. The lower extremities and developed some edema. The peripheral pulses were 2+ and symmetric. Neuro: Awake alert oriented to person place and time. There are no acute new gross focal sensory motor deficits. - Labs CBC & Chem 7: 12/04/16 06:59 12/04/16 06:59 Labs: Abnormal Lab Results - Last 24 Hours (Table) 12/03/16 12/04/16 12/04/16 Range/Units 21:11 06:18 06:59 WBC 15.1 H (3.8-10.6) k/uL Neutrophils # 12.7 H (1.3-7.7) k/uL Glucose (74-99) mg/dL POC Glucose (mg/dL) 160 H 100 H (75-99) mg/dL Calcium (8.4-10.2) mg/dL Total Protein (6.3-8.2) g/dL Albumin (3.5-5.0) g/dL 12/04/16 12/04/16 12/04/16 Range/Units 06:59 16:31 20:44 WBC (3.8-10.6) k/uL Neutrophils # (1.3-7.7) k/uL Glucose 102 H (74-99) mg/dL POC Glucose (mg/dL) 110 H 121 H (75-99) mg/dL Calcium 8.1 L (8.4-10.2) mg/dL Total Protein 5.5 L (6.3-8.2) g/dL Albumin 2.9 L (3.5-5.0) g/dL Laboratory Results WBC 15.1 k/uL (3.8-10.6) H 12/04/16 06:59 RBC 4.31 m/uL (4.30-5.90) 12/04/16 06:59 Hgb 13.3 gm/dL (13.0-17.5) 12/04/16 06:59 Hct 42.3 % (39.0-53.0) 12/04/16 06:59 MCV 98.3 fL (80.0-100.0) 12/04/16 06:59 MCH 31.0 pg (25.0-35.0) 12/04/16 06:59 MCHC 31.5 g/dL (31.0-37.0) 12/04/16 06:59 RDW 13.5 % (11.5-15.5) 12/04/16 06:59 Plt Count 292 k/uL (150-450) 12/04/16 06:59 Neutrophils % 84 % 12/04/16 06:59 Neutrophils % (Manual) 90.0 % 11/27/16 14:06 Lymphocytes % 10 % 12/04/16 06:59 Lymphocytes % (Manual) 7.0 % 11/27/16 14:06 Monocytes % 3 % 12/04/16 06:59 Monocytes % (Manual) 3.0 % 11/27/16 14:06 Eosinophils % 1 % 12/04/16 06:59 Basophils % 0 % 12/04/16 06:59 Neutrophils # 12.7 k/uL (1.3-7.7) H 12/04/16 06:59 Neutrophils # (Manual) 23.2 k/uL (1.3-7.7) H 11/27/16 14:06 Lymphocytes # 1.6 k/uL (1.0-4.8) 12/04/16 06:59 Lymphocytes # (Manual) 1.8 k/uL (1.0-4.8) 11/27/16 14:06 Monocytes # 0.5 k/uL (0-1.0) 12/04/16 06:59 Monocytes # (Manual) 0.8 k/uL (0-1.0) 11/27/16 14:06 Eosinophils # 0.2 k/uL (0-0.7) 12/04/16 06:59 Basophils # 0.0 k/uL (0-0.2) 12/04/16 06:59 Nucleated RBCs 0 /100 WBC (0-0) 11/27/16 14:06 RBC Morphology Normal 11/27/16 14:06 Macrocytosis Slight 12/02/16 03:56 PT 11.4 sec (9.0-12.0) 11/27/16 20:18 INR 1.1 (<1.1) 11/27/16 20:18 APTT 28.9 sec (22.0-30.0) 11/27/16 20:18 D-Dimer 0.80 mg/L FEU (<0.60) H 11/27/16 20:18 Sample Site LRAD 11/28/16 05:59 ABG pH 7.38 (7.35-7.45) 11/28/16 05:59 ABG pCO2 40 mmHg (35-45) 11/28/16 05:59 ABG pO2 84 mmHg (83-108) 11/28/16 05:59 ABG HCO3 23 mmol/L (21-25) 11/28/16 05:59 ABG Total CO2 24 mmol/L (19-24) 11/28/16 05:59 ABG O2 Saturation 96.0 % (94-97) 11/28/16 05:59 ABG Base Excess -1.4 mmol/L 11/28/16 05:59 FiO2 100 % 11/28/16 05:59 Sodium 137 mmol/L (137-145) 12/04/16 06:59 Potassium 4.8 mmol/L (3.5-5.1) 12/04/16 06:59 Chloride 104 mmol/L (98-107) 12/04/16 06:59 Carbon Dioxide 29 mmol/L (22-30) 12/04/16 06:59 Anion Gap 4 mmol/L 12/04/16 06:59 BUN 14 mg/dL (9-20) 12/04/16 06:59 Creatinine 0.69 mg/dL (0.66-1.25) 12/04/16 06:59 Est GFR (MDRD) Af Amer >60 (>60 ml/min/1.73 sqM) 12/04/16 06:59 Est GFR (MDRD) Non-Af >60 (>60 ml/min/1.73 sqM) 12/04/16 06:59 Glucose 102 mg/dL (74-99) H 12/04/16 06:59 POC Glucose (mg/dL) 121 mg/dL (75-99) H 12/04/16 20:44 POC Glu Battery Tester ID Erik Tellez 12/04/16 20:[address] Glu mg/dL 123 mg/dL 11/28/16 05:08 Hemoglobin A1c 5.9 % (4.2-6.1) 11/28/16 05:08 Plasma Lactic Acid Jaskaran 1.3 mmol/L (0.7-2.0) 11/27/16 20:14 Calcium 8.1 mg/dL (8.4-10.2) L 12/04/16 06:59 Ionized Calcium Елена 4.9 mg/dL (4.5-5.3) 11/27/16 20:18 Phosphorus 3.3 mg/dL (2.5-4.5) 12/03/16 06:10 Magnesium 2.4 mg/dL (1.6-2.3) H 12/03/16 06:10 Total Bilirubin 0.9 mg/dL (0.2-1.3) 12/04/16 06:59 AST 22 U/L (17-59) 12/04/16 06:59 ALT 65 U/L (21-72) 12/04/16 06:59 Alkaline Phosphatase 67 U/L (38-126) 12/04/16 06:59 Total Creatine Kinase 96 U/L (55-170) 11/27/16 14:06 CK-MB (CK-2) 5.9 ng/mL (0.0-2.4) H* 11/27/16 20:18 CK-MB (CK-2) Rel Index 7.3 11/27/16 14:06 Troponin I <0.012 ng/mL (0.000-0.034) 11/27/16 20:18 NT-Pro-B Natriuret Pep 97 pg/mL 11/27/16 14:06 Total Protein 5.5 g/dL (6.3-8.2) L 12/04/16 06:59 Albumin 2.9 g/dL (3.5-5.0) L 12/04/16 06:59 Amylase 35 U/L (30-110) 11/27/16 20:18 Lipase 94 U/L (23-300) 11/27/16 20:18 Urine Color Yellow 11/27/16 23:00 Urine Appearance Clear (Clear) 11/27/16 23:00 Urine pH 5.5 (5.0-8.0) 11/27/16 23:00 Ur Specific [place] 1.016 (1.001-1.035) 11/27/16 23:00 Urine Protein Negative (Negative) 11/27/16 23:00 Urine Glucose (UA) Negative (Negative) 11/27/16 23:00 Urine Ketones Negative (Negative) 11/27/16 23:00 Urine Blood Negative (Negative) 11/27/16 23:00 Urine Nitrite Negative (Negative) 11/27/16 23:00 Urine Bilirubin 1+ (Negative) H 11/27/16 23:00 Urine Urobilinogen <2.0 mg/dL (<2.0) 11/27/16 23:00 Ur Leukocyte Esterase Negative (Negative) 11/27/16 23:00 Fluid Source 11/29/16 11:35 Fluid Appearance Cloudy 11/29/16 11:35 Fluid RBC 6500 /uL 11/29/16 11:35 Fluid Nucleated Cells 2100 /uL 11/29/16 11:35 Fluid Polynuclear WBCs 90 % 11/29/16 11:35 Fluid Mononuclear WBCs 10 % 11/29/16 11:35 Body Fluid Glucose Source Body Fluid 11/29/16 11:35 Fluid Glucose 45 mg/dL 11/29/16 11:35 Body Fluid Protein Source Body Fluid 11/29/16 11:35 Fluid Total Protein 4800 mg/dL 11/29/16 11:35 Body Fluid LDH Source Body Fluid 11/29/16 11:35 Fluid Cholesterol 103 mg/dL 11/29/16 11:35 Fl Cholesterol Source Body Fluid 11/29/16 11:35 Vancomycin Trough 19.1 ug/mL 12/02/16 03:56 Urine Legionella Ag Not detected (Not detected) 11/28/16 11:45 Virus Source See Below 11/29/16 11:35 Viral Test See Below 11/29/16 11:35 Virus Analysis Interp See Below 11/29/16 11:35 Microbiology 11/27/16 14:06 Blood Blood Culture - Final No Growth after 144 hours 11/29/16 11:35 Pleural Fluid Gram Stain - Final 11/29/16 11:35 Pleural Fluid Body Fluid Culture - Final 11/30/16 04:30 Sputum Gram Stain - Final 11/30/16 04:30 Sputum Sputum Culture - Final Kourtney albicans 11/29/16 11:35 Lung Aspirate - Right Acid Fast Bacilli Smear - Final 11/29/16 11:35 Lung Aspirate - Right Acid Fast Bacilli Culture - Preliminary 11/29/16 11:35 Lung Aspirate - Right Fungal Culture - Preliminary 11/27/16 23:00 Urine,Catheterized Urine Culture - Final 11/28/16 11:20 Sputum Gram Stain - Final 11/28/16 11:20 Sputum Sputum Culture - Final Assessment and Plan (1) Acute respiratory failure with hypoxia Narrative/Plan: 56-year-old male presents to Hospital significant shortness of breath cough or sputum production and severe right-sided chest pain. Imaging studies reveal evidence of sher pneumonia and likely fluid collection and possible empyema but no pulmonary embolus. Receiving extensive antibiotic therapy at this time all cultures are process with piperacillin tazobactam and Levaquin with concerns to gram-negative pneumonia. The patient is not a significant alcohol user and aspiration pneumonia is not a concern at this time. Could also have routine Streptococcus pneumoniae with results pleural effusion which is common and potential empyema. Case discussed with cardio thoracic surgery. Patient has had percutaneous drainage of the empyema. Pleural catheter has been removed. Patient shows marked improvement. Cultures are in process and will further direct antibiotic therapy, leukocytosis due to the significant sepsis and steroid use is improving. Pain is much improved. Still requiring O2 therapy. Follow-up chest x-ray is stable. No evidence of any worsening. Has been seen by pulmonary critical care and agree that there is improvement. We'll make arrangements for his PICC line and outpatient intravenous antibiotic therapy with Rocephin for a couple weeks for this complex pneumonia and empyema. He will need oxygen at home. Status: Acute (2) Morbid obesity with BMI of 50.0-59.9, adult Status: Acute (3) Gram-negative pneumonia Status: Acute (4) Empyema lung Status: Acute
[2016-12-04] MEDS: LORazepam 2 MG/ML SYRINGE IV PRN (21:54)
[2016-12-05] MEDS ORDERED: VANCOMYCIN 2,250 MG in SODIUM CHLORIDE 0.9% 500 ML IVPB SCH ×2
[2016-12-05] MEDS: HYDROmorphone 1 MG/ML 1 ML SYRINGE IVP PRN (01:39)
[2016-12-05] MEDS: LORazepam 2 MG/ML SYRINGE IV PRN (01:43)
[2016-12-05] MEDS ORDERED: VANCOMYCIN TROUGH DUE 1 EACH MISC MISCELLANE ONE (04:00)
[2016-12-05 05:18] VITALS: RESP 18
[2016-12-05 06:16] LABS: Glucose,Whole Blood 105 mg/dL (75-99)
[2016-12-05] MEDS: INSULIN LISPRO (humaLOG) 300 UNIT/3 ML VIAL SQ SCH ×2 (06:34→11:58)
[2016-12-05] MEDS: PANTOPRAZOLE 40 MG TABLET PO SCH (06:45)
[2016-12-05 07:04] LABS: Basophils % (A) 0 %; CHCM 31.9; Eosinophils # (A) 0.1 k/uL (0-0.7); Eosinophils % (A) 1 %; HCT 41.8 % (39.0-53.0); HDW 2.03; HGB 13.6 gm/dL (13.0-17.5); Luc # (Auto) 0.09; Luc % (Auto) 1; Lymphocytes # (A) 1.7 k/uL (1.0-4.8); Lymphocytes % (A) 12 %; MCH 31.8 pg (25.0-35.0); MCHC 32.5 g/dL (31.0-37.0); MCV 97.6 fL (80.0-100.0); Mean Platelet Volume 6.6; Monocytes # (A) 0.6 k/uL (0-1.0); Monocytes % (A) 4 %; Neutrophils # (A) 11.2 k/uL (1.3-7.7); Neutrophils % (A) 82 %; RBC 4.29 m/uL (4.30-5.90); RDW 13.6 % (11.5-15.5); WBC 13.7 k/uL (3.8-10.6); WBC (Perox) 14.62
[2016-12-05 07:11] LABS: ALT 57 U/L (21-72); AST 23 U/L (17-59); Alkaline Phosphatase 58 U/L (38-126); Anion Gap 8 mmol/L; Blood Urea Nitrogen 13 mg/dL (9-20); Calcium 8.4 mg/dL (8.4-10.2); Carbon Dioxide 25 mmol/L (22-30); Chloride 106 mmol/L (98-107); Glucose 104 mg/dL (74-99); Non-African American GFR(MDRD) >60 (>60 ml/min/1.73 sqM); Potassium 4.5 mmol/L (3.5-5.1); Sodium 139 mmol/L (137-145); Total Bilirubin 0.9 mg/dL (0.2-1.3); Total Protein 5.7 g/dL (6.3-8.2)
[2016-12-05] MEDS: cefTRIAXone 2,000 MG in SODIUM CHLORIDE 0.9% 100 ML IVPB SCH (08:04)
[2016-12-05] MEDS: HYDROCHLOROTHIAZIDE 12.5 MG CAP PO SCH (08:05)
[2016-12-05] MEDS: methylPREDNISolone SOD SUCCI 40 MG/ML 1 ML VIAL IV SCH (08:05)
[2016-12-05] MEDS: ENOXAPARIN 40 MG/0.4 ML SYRINGE SQ SCH (08:05)
[2016-12-05] MEDS: LISINOPRIL 20 MG TAB PO SCH (08:05)
[2016-12-05] MEDS: DOCUSATE 100 MG CAP PO SCH (08:05)
[2016-12-05] MEDS: IPRATROPIUM-ALBUTEROL 3 ML NEB INHALATION SCH ×4 (08:58→15:49)
[2016-12-05 11:04] VITALS: BMI 52.0
--- NOTE | 2016-12-05 11:51 | P.DS ---
Providers Date of admission: 11/27/16 14:14 Expected date of discharge: 12/05/16 Attending physician: Dino Woods Consults: 11/27/16 19:46 Consult Physician Stat Consulting Provider: Neri Moscoso Consult Reason/Comments: icu management Do you want consulting provider notified?: Yes 11/28/16 11:42 Consult Physician Routine Consulting Provider: Giovanny Payne Consult Reason/Comments: Right lung loculated fluid Do you want consulting provider notified?: Yes 11/28/16 11:56 Consult Physician Routine Consulting Provider: Arcadio Molina Consult Reason/Comments: pneumonia, possible empyema Do you want consulting provider notified?: Yes 12/02/16 09:41 Consult Physician Urgent Consulting Provider: Sanchez Coreas Consult Reason/Comments: Picc line placement Do you want consulting provider notified?: Yes Primary care physician: Diamond Farrar Hospital Course: Discharge diagnosis 1. Acute bilateral pneumonia with right-sided pleural effusion: Chest x-ray from this morning shows worsening consolidation and pleural effusion. Case was discussed with pulmonary service. There are concerns about a possible empyema. Computed tomography scan shows no large saddle central PE. Does show a fairly moderate size non-simple right-sided pleural effusion or fluid collection. With a right lower lung atelectasis or consolidation. And right paratracheal density is loculated or non-simple right-sided pleural effusion fluid. Both vascular surgery and infectious disease have been consulted. Empyema was ruled out 2. Bacterial Pneumonia with sepsis: Patient was tachycardic, leukocytosis, and febrile on admission. Continue with antibiotics and IV fluids 3. Acute pleuritic right-sided chest pain likely related to the pneumonia. Continue current pain medication 4. Acute hypoxic respiratory failure secondary to pneumonia or possible empyema. Continue to monitor patient did require BiPAP in the morning. Currently on a nonrebreather 5. Morbid obesity 6. Essential hypertension with pressures are stable 7. Degenerative disc disease Hospital course patient is a 56-year-old male patient, who was in the ICU because of worsening shortness of breath and bilateral pneumonia. This patient was in a good state of health until approximately 10 days ago when he developed symptoms of acute bronchitis. He contacted his primary care physician, Dr. Farrar, who gave him a Z-Avery and a Medrol Dosepak. Patient continued to deteriorate and presented to [facility] chest x-ray revealed evidence of pneumonia he was initially admitted to telemetry floor and subsequently transferred to intensive care unit due to worsening shortness of breath patient was initially started on BiPAP. Patient had right sided pleural effusion and empyema was suspected, he underwent chest tube placement. Empyema was ruled out. Patient's chest tube exit became out. Repeat computed tomography scan of the chest completed. He was evaluated by both pulmonary and vascular surgery and felt that there was no further need of the chest tube. Chest tube was able to be he may now. He was also seen by infectious disease for the pneumonia. Antibiotics were adjusted. They are recommending Rocephin 2 g daily for 2 weeks. Home antibiotics are being arranged. Patient has PICC line in place. Shortness of breath is improving. However, he will require home oxygen. Again rn case manager is setting this up. Patient has been cleared by consultants and he is medically stable for discharge. We'll have him follow up with pulmonary service and Dr. Farrar in 1 week. Patient Condition at Discharge: Stable Plan - Discharge Summary New Discharge Prescriptions: cefTRIAXone [Rocephin] 2,000 mg IVPB Q24HR #14 vial predniSONE 10 mg PO DIRECTED #18 tab Discharge Medication List Ergocalciferol [Vitamin D2 (DRISDOL)] 50,000 unit PO SA 02/21/16 [History] Etodolac [Lodine] 400 mg PO TID 02/21/16 [History] Hydrochlorothiazide [Hydrodiuril] 12.5 mg PO HS 02/21/16 [History] Lisinopril [Zestril] 20 mg PO HS 02/21/16 [History] Metaxalone [Skelaxin] 800 mg PO TID PRN #20 tab 02/21/16 [Rx] Montelukast [Singulair] 10 mg PO HS 02/21/16 [History] cefTRIAXone [Rocephin] 2,000 mg IVPB Q24HR #14 vial 12/04/16 [Rx] predniSONE 10 mg PO DIRECTED #18 tab 12/05/16 [Rx] Follow up Appointment(s)/Referral(s): Diamond Farrar DO [Primary Care Provider] - 1 Week Neri Moscoso MD [STAFF PHYSICIAN] - 1 Week Ambulatory/Diagnostic Orders: Basic Metabolic Panel [LAB.AMB] Location: Determined By Patient Complete Blood Count w/diff [LAB.AMB] Location: Determined By Patient Miscellaneous Lab Order [LAB.AMB] Location: Determined By Patient Activity/Diet/Wound Care/Special Instructions: Diet: cardiac Activity: as tolerated Discharge Disposition: HOME WITH HOME HEALTH SERVICES
[2016-12-05 11:57] LABS: Glucose,Whole Blood 81 mg/dL (75-99)
[2016-12-05] MEDS ORDERED: FUROSEMIDE 10 MG/ML 2 ML VIAL IV ONE (13:24)
[2016-12-05 15:04] VITALS: BP 144/85; TEMP 97.8
[2016-12-05 15:51] VITALS: PULSE 94
[2016-12-05 16:52] LABS: Glucose,Whole Blood 122 mg/dL (75-99)
--- NOTE | 2016-12-05 20:39 | P.PN ---
Subjective Principal diagnosis: pneumonia shortness of breath 56-year-old male who has a known history of obesity and hypertension presents to the emergency center because of a week history of increasing illness. Approximately a week ago he had an acute bout of bronchitis. He felt very poorly and was seen by his primary care physician. He received a course of azithromycin and a medrol Dosepak. He relates that he did have some improvement of his cough and sputum production. He however is now developed the significant change of his status. Developed severe right-sided pain to his chest. Stabbing in nature. The socio- significant shortness of breath. Tachycardia. As well as a fever of 101.9. He was brought to Hospital by EMS and is now been admitted. Evidence of sepsis and was brought to the intensive care unit. He did have evidence of respiratory failure requiring BiPAP use. Also required pain medications and sedation for his significant anxiety and agitation from his shortness of breath and pain. Certainly feeling somewhat better today. Computed tomography scan failed to reveal evidence of a pulmonary embolus. But there is evidence of pneumonia and likely a right pleural effusion which could be empyema given his symptoms. The patient has now had the percutaneous drainage catheter placed into his pleural space. A large amount of purulent material has been drained. Sent to the laboratory for culture. He is feeling better today. His fevers, chills or shortness of breath have all improved. He has been moved to stepdown, he is feeling considerably better but still very short of breath with activity. Oxygen is now 3 L nasal cannula. His severe pain to the chest is improved of the chest tube has been removed, [place], accidentall The follow up CT does not reveal a large effusion and pneumonia improving. Continues to have improvement today. Less short of breath. The better with ambulation. Was having some lower extremity edema. No other new acute complaints. Objective - Vital Signs Vital signs: Vital Signs Temp 97.8 F 12/05/16 12:00 Pulse 94 12/05/16 15:57 Resp 18 12/05/16 12:00 BP 144/85 12/05/16 12:00 Pulse Ox 93 L 12/05/16 12:00 Intake & Output 12/05/16 12/05/16 12/06/16 06:59 18:59 06:59 Intake Total 800 820 Output Total 2460 900 Balance -1660 -80 Weight 173.9 kg 173.9 kg Intake: IV 800 340 Sodium Chloride 0.9% 1, 200 240 000 ml @ 20 mls/hr IV . Q24H [facility] Rx#:[id number] Vancomycin 2,250 mg In 500 Sodium Chloride 0.9% 500 ml @ 167 mls/hr IVPB Q8H [facility] Rx#:[id number] cefTRIAXone 2,000 mg In 100 100 Sodium Chloride 0.9% 100 ml @ 100 mls/hr IVPB Q24HR [facility] Rx#:[id number] Oral 480 Output: Urine 2460 900 Other: Voiding Method Urinal Urinal # Voids 2 # Bowel Movements 0 - Exam Pleasant obese 56-year-old male who is now much more comfortable. Pleural catheter has been removed. HEENT: Anicteric conjunctiva are pink and moist nasal mucosa grossly intact without significant lesions, there is no thrush. Neck: The neck is supple without significant lymphadenopathy or thyromegaly. Lungs: Symmetrical air entry. Expiratory wheeze. Crackles at the right base. A few bronchial sounds at the right base. No significant percussion tenderness to the right chest. No significant egophony be appreciated Heart: Regular rate and rhythm with an audible S1-S2, no S3 no S4. There is no significant murmur click or rub, PMI was nondisplaced. Abdomen: Obese Positive bowel sounds soft and nontender without palpable masses or organomegaly. There was no guarding or rebound. Extremities: The upper extremities have excellent pulses they are symmetric, no significant petechiae or telangiectasia. No splinter hemorrhages were noted. The lower extremities and developed some edema. The peripheral pulses were 2+ and symmetric. Neuro: Awake alert oriented to person place and time. There are no acute new gross focal sensory motor deficits. - Labs CBC & Chem 7: 12/05/16 06:33 12/05/16 06:33 Labs: Abnormal Lab Results - Last 24 Hours (Table) 12/04/16 12/05/16 12/05/16 Range/Units 20:44 06:15 06:33 WBC 13.7 H (3.8-10.6) k/uL RBC 4.29 L (4.30-5.90) m/uL Neutrophils # 11.2 H (1.3-7.7) k/uL Creatinine (0.66-1.25) mg/dL Glucose (74-99) mg/dL POC Glucose (mg/dL) 121 H 105 H (75-99) mg/dL Total Protein (6.3-8.2) g/dL Albumin (3.5-5.0) g/dL 12/05/16 12/05/16 Range/Units 06:33 16:26 WBC (3.8-10.6) k/uL RBC (4.30-5.90) m/uL Neutrophils # (1.3-7.7) k/uL Creatinine 0.64 L (0.66-1.25) mg/dL Glucose 104 H (74-99) mg/dL POC Glucose (mg/dL) 122 H (75-99) mg/dL Total Protein 5.7 L (6.3-8.2) g/dL Albumin 3.0 L (3.5-5.0) g/dL Laboratory Results WBC 13.7 k/uL (3.8-10.6) H 12/05/16 06:33 RBC 4.29 m/uL (4.30-5.90) L 12/05/16 06:33 Hgb 13.6 gm/dL (13.0-17.5) 12/05/16 06:33 Hct 41.8 % (39.0-53.0) 12/05/16 06:33 MCV 97.6 fL (80.0-100.0) 12/05/16 06:33 MCH 31.8 pg (25.0-35.0) 12/05/16 06:33 MCHC 32.5 g/dL (31.0-37.0) 12/05/16 06:33 RDW 13.6 % (11.5-15.5) 12/05/16 06:33 Plt Count 278 k/uL (150-450) 12/05/16 06:33 Neutrophils % 82 % 12/05/16 06:33 Neutrophils % (Manual) 90.0 % 11/27/16 14:06 Lymphocytes % 12 % 12/05/16 06:33 Lymphocytes % (Manual) 7.0 % 11/27/16 14:06 Monocytes % 4 % 12/05/16 06:33 Monocytes % (Manual) 3.0 % 11/27/16 14:06 Eosinophils % 1 % 12/05/16 06:33 Basophils % 0 % 12/05/16 06:33 Neutrophils # 11.2 k/uL (1.3-7.7) H 12/05/16 06:33 Neutrophils # (Manual) 23.2 k/uL (1.3-7.7) H 11/27/16 14:06 Lymphocytes # 1.7 k/uL (1.0-4.8) 12/05/16 06:33 Lymphocytes # (Manual) 1.8 k/uL (1.0-4.8) 11/27/16 14:06 Monocytes # 0.6 k/uL (0-1.0) 12/05/16 06:33 Monocytes # (Manual) 0.8 k/uL (0-1.0) 11/27/16 14:06 Eosinophils # 0.1 k/uL (0-0.7) 12/05/16 06:33 Basophils # 0.0 k/uL (0-0.2) 12/05/16 06:33 Nucleated RBCs 0 /100 WBC (0-0) 11/27/16 14:06 RBC Morphology Normal 11/27/16 14:06 Macrocytosis Slight 12/02/16 03:56 PT 11.4 sec (9.0-12.0) 11/27/16 20:18 INR 1.1 (<1.1) 11/27/16 20:18 APTT 28.9 sec (22.0-30.0) 11/27/16 20:18 D-Dimer 0.80 mg/L FEU (<0.60) H 11/27/16 20:18 Sample Site LRAD 11/28/16 05:59 ABG pH 7.38 (7.35-7.45) 11/28/16 05:59 ABG pCO2 40 mmHg (35-45) 11/28/16 05:59 ABG pO2 84 mmHg (83-108) 11/28/16 05:59 ABG HCO3 23 mmol/L (21-25) 11/28/16 05:59 ABG Total CO2 24 mmol/L (19-24) 11/28/16 05:59 ABG O2 Saturation 96.0 % (94-97) 11/28/16 05:59 ABG Base Excess -1.4 mmol/L 11/28/16 05:59 FiO2 100 % 11/28/16 05:59 Sodium 139 mmol/L (137-145) 12/05/16 06:33 Potassium 4.5 mmol/L (3.5-5.1) 12/05/16 06:33 Chloride 106 mmol/L (98-107) 12/05/16 06:33 Carbon Dioxide 25 mmol/L (22-30) 12/05/16 06:33 Anion Gap 8 mmol/L 12/05/16 06:33 BUN 13 mg/dL (9-20) 12/05/16 06:33 Creatinine 0.64 mg/dL (0.66-1.25) L 12/05/16 06:33 Est GFR (MDRD) Af Amer >60 (>60 ml/min/1.73 sqM) 12/05/16 06:33 Est GFR (MDRD) Non-Af >60 (>60 ml/min/1.73 sqM) 12/05/16 06:33 Glucose 104 mg/dL (74-99) H 12/05/16 06:33 POC Glucose (mg/dL) 122 mg/dL (75-99) H 12/05/16 16:26 POC Glu Dye [employer] Worker ID Fariha Ma 12/05/16 16:[address] Glu mg/dL 123 mg/dL 11/28/16 05:08 Hemoglobin A1c 5.9 % (4.2-6.1) 11/28/16 05:08 Plasma Lactic Acid Jaskaran 1.3 mmol/L (0.7-2.0) 11/27/16 20:14 Calcium 8.4 mg/dL (8.4-10.2) 12/05/16 06:33 Ionized Calcium Елена 4.9 mg/dL (4.5-5.3) 11/27/16 20:18 Phosphorus 3.3 mg/dL (2.5-4.5) 12/03/16 06:10 Magnesium 2.4 mg/dL (1.6-2.3) H 12/03/16 06:10 Total Bilirubin 0.9 mg/dL (0.2-1.3) 12/05/16 06:33 AST 23 U/L (17-59) 12/05/16 06:33 ALT 57 U/L (21-72) 12/05/16 06:33 Alkaline Phosphatase 58 U/L (38-126) 12/05/16 06:33 Total Creatine Kinase 96 U/L (55-170) 11/27/16 14:06 CK-MB (CK-2) 5.9 ng/mL (0.0-2.4) H* 11/27/16 20:18 CK-MB (CK-2) Rel Index 7.3 11/27/16 14:06 Troponin I <0.012 ng/mL (0.000-0.034) 11/27/16 20:18 NT-Pro-B Natriuret Pep 97 pg/mL 11/27/16 14:06 Total Protein 5.7 g/dL (6.3-8.2) L 12/05/16 06:33 Albumin 3.0 g/dL (3.5-5.0) L 12/05/16 06:33 Amylase 35 U/L (30-110) 11/27/16 20:18 Lipase 94 U/L (23-300) 11/27/16 20:18 Urine Color Yellow 11/27/16 23:00 Urine Appearance Clear (Clear) 11/27/16 23:00 Urine pH 5.5 (5.0-8.0) 11/27/16 23:00 Ur Specific [place] 1.016 (1.001-1.035) 11/27/16 23:00 Urine Protein Negative (Negative) 11/27/16 23:00 Urine Glucose (UA) Negative (Negative) 11/27/16 23:00 Urine Ketones Negative (Negative) 11/27/16 23:00 Urine Blood Negative (Negative) 11/27/16 23:00 Urine Nitrite Negative (Negative) 11/27/16 23:00 Urine Bilirubin 1+ (Negative) H 11/27/16 23:00 Urine Urobilinogen <2.0 mg/dL (<2.0) 11/27/16 23:00 Ur Leukocyte Esterase Negative (Negative) 11/27/16 23:00 Fluid Source 11/29/16 11:35 Fluid Appearance Cloudy 11/29/16 11:35 Fluid RBC 6500 /uL 11/29/16 11:35 Fluid Nucleated Cells 2100 /uL 11/29/16 11:35 Fluid Polynuclear WBCs 90 % 11/29/16 11:35 Fluid Mononuclear WBCs 10 % 11/29/16 11:35 Body Fluid Glucose Source Body Fluid 11/29/16 11:35 Fluid Glucose 45 mg/dL 11/29/16 11:35 Body Fluid Protein Source Body Fluid 11/29/16 11:35 Fluid Total Protein 4800 mg/dL 11/29/16 11:35 Body Fluid LDH Source Body Fluid 11/29/16 11:35 Fluid Cholesterol 103 mg/dL 11/29/16 11:35 Fl Cholesterol Source Body Fluid 11/29/16 11:35 Vancomycin Trough 19.1 ug/mL 12/02/16 03:56 Urine Legionella Ag Not detected (Not detected) 11/28/16 11:45 Virus Source See Below 11/29/16 11:35 Viral Test See Below 11/29/16 11:35 Virus Analysis Interp See Below 11/29/16 11:35 Microbiology 11/27/16 14:06 Blood Blood Culture - Final No Growth after 144 hours 11/29/16 11:35 Pleural Fluid Gram Stain - Final 11/29/16 11:35 Pleural Fluid Body Fluid Culture - Final 11/30/16 04:30 Sputum Gram Stain - Final 11/30/16 04:30 Sputum Sputum Culture - Final Kourtney albicans 11/29/16 11:35 Lung Aspirate - Right Acid Fast Bacilli Smear - Final 11/29/16 11:35 Lung Aspirate - Right Acid Fast Bacilli Culture - Preliminary 11/29/16 11:35 Lung Aspirate - Right Fungal Culture - Preliminary 11/27/16 23:00 Urine,Catheterized Urine Culture - Final 11/28/16 11:20 Sputum Gram Stain - Final 11/28/16 11:20 Sputum Sputum Culture - Final Assessment and Plan (1) Acute respiratory failure with hypoxia Narrative/Plan: 56-year-old male presents to Hospital significant shortness of breath cough or sputum production and severe right-sided chest pain. Imaging studies reveal evidence of sher pneumonia and likely fluid collection and possible empyema but no pulmonary embolus. Receiving extensive antibiotic therapy at this time all cultures are process with piperacillin tazobactam and Levaquin with concerns to gram-negative pneumonia. The patient is not a significant alcohol user and aspiration pneumonia is not a concern at this time. Could also have routine Streptococcus pneumoniae with results pleural effusion which is common and potential empyema. Case discussed with cardio thoracic surgery. Patient has had percutaneous drainage of the empyema. Pleural catheter has been removed. Patient shows marked improvement. Cultures are in process and will further direct antibiotic therapy, leukocytosis due to the significant sepsis and steroid use is improving. Pain is much improved. Still requiring O2 therapy. Follow-up chest x-ray is stable. No evidence of any worsening. Has been seen by pulmonary critical care and agree that there is improvement. We'll make arrangements for his PICC line and outpatient intravenous antibiotic therapy with Rocephin for a couple weeks for this complex pneumonia and empyema. He will need oxygen at home. For discharge home today f/u in 2 weeks Status: Acute (2) Morbid obesity with BMI of 50.0-59.9, adult Status: Acute (3) Gram-negative pneumonia Status: Acute (4) Empyema lung Status: Acute
== END 2016-12-05 17:38 | disposition home health service (06) | DRG 871 ==
LOC: EC 13:09 → 5MS5E 14:14 → 6ICU 20:07 → 6SEL 11-30 08:29
PROVIDERS: ADMIT Internal Medicine; ATTEND Internal Medicine
PROC: 0W9930Z Drainage of Right Pleural Cavity with Drainage Device, Percutaneous Approach (ICD-10-PCS; 2016-11-29)
PROC: 02HV33Z Insertion of Infusion Device into Superior Vena Cava, Percutaneous Approach (ICD-10-PCS; principal; 2016-12-02 13:30)
PROC: B548ZZA Ultrasonography of Superior Vena Cava, Guidance (ICD-10-PCS; 2016-12-02 13:30)
DX: A41.9 Sepsis, unspecified organism (principal); J15.6 Pneumonia due to other Gram-negative bacteria; J96.01 Acute respiratory failure with hypoxia; J86.9 Pyothorax without fistula; J91.8 Pleural effusion in other conditions classified elsewhere; Z68.43 Body mass index [BMI] 50.0-59.9, adult; J98.11 Atelectasis; E66.01 Morbid (severe) obesity due to excess calories; I71.2 Thoracic aortic aneurysm, without rupture; I10 Essential (primary) hypertension; K21.9 Gastro-esophageal reflux disease without esophagitis; M19.91 Primary osteoarthritis, unspecified site; F41.9 Anxiety disorder, unspecified; Z88.0 Allergy status to penicillin; Z88.2 Allergy status to sulfonamides; Z86.14 Personal history of Methicillin resistant Staphylococcus aureus infection; Z96.652 Presence of left artificial knee joint; Z98.42 Cataract extraction status, left eye; Z79.899 Other long term (current) drug therapy
CPT/HCPCS: 32551; 36415; 36569; 71010; 71260; 71275; 76937; 77001; 77012; 80048; 80053; 80202; 81003; 82150; 82330; 82465; 82550; 82553; 82805; 82945; 83036; 83605; 83615; 83690; 83735; 83880; 84100; 84157; 84484; 85025; 85379; 85610; 85730; 87040; 87070; 87086; 87102; 87116; 87205; 87206; 87252; 87449; 87496; 87498; 87502; 87529; 87798; 89050; 93005; 93306; 94640; 94644; 94660; 94760

== ENCOUNTER → 2017-01-13 | Outpatient (CLI) | payer OTHER ==
--- NOTE | 2017-01-13 14:15 | CT ---
EXAMINATION TYPE: CT chest w con DATE OF EXAM: 01/13/2017 COMPARISON: 11/29/2016 HISTORY: Patient complains of difficulty breathing and empyema. CT DLP: 1331.9 mGycm, Automated exposure control for dose reduction was used. CONTRAST: Performed injected with 100 mL of Omnipaque 300. TECHNIQUE: Axial images were obtained at 5 mm thick sections. Reconstructed images are reviewed on [employer] computer in the coronal plane. FINDINGS: Portion of the thyroid visualized is normal. There is a consolidation in the right lower lobe. Correlate for pneumonia. This was present November 2016. Previous pleural effusion has largely resolved. No enlarged mediastinal or hilar adenopathy is evident. The ascending aorta diameter at the level o f the main pulmonary artery is 4.3 cm. The main pulmonary artery diameter at the bifurcation is 3.[address] sections are obtained through the upper abdomen. Abdomen is essentially unremarkable. IMPRESSIONS: 1. Mild improvement of a right lower lobe consolidation. 2. Previous right pleural effusion has resolved. 3. Ascending thoracic aortic aneurysm and 4.3 cm
== END | disposition home or self-care (01) ==
LOC: RADCTMAIN 12:37
PROVIDERS: ATTEND Physician Assistant
DX: R91.8 Other nonspecific abnormal finding of lung field (principal); I71.2 Thoracic aortic aneurysm, without rupture; R06.4 Hyperventilation; J15.7 Pneumonia due to Mycoplasma pneumoniae; J43.9 Emphysema, unspecified
CPT/HCPCS: 71260; Q9967

== ENCOUNTER → 2017-03-13 | Outpatient (CLI) | payer OTHER ==
--- NOTE | 2017-03-13 13:37 | US ---
EXAMINATION TYPE: US venous doppler duplex LE RT DATE OF EXAM: 03/13/2017 12:30 PM COMPARISON: NONE CLINICAL HISTORY: Edema R Leg M79.661. SIDE PERFORMED: RT TECHNIQUE: The lower extremity deep venous system is examined utilizing real time linear array sonog ara with graded compression, doppler sonography and color-flow sonography. VESSELS IMAGED: External Iliac Vein (EIV) Common Femoral Vein Deep Femoral Vein Greater Saphenous Vein * Femoral Vein Popliteal Vein Small Saphenous Vein * Proximal Calf Veins (* superficial vessels) Right Leg: : Positive for DVT from cfv thru popliteal Grayscale intraluminal thrombus, and noncompressibility is seen of the right common femoral vein infe riorly through the popliteal vein. Office was contacted by the inspector balance bridge is seen in the office opens at [id number] hours [id number]. IMPRESSION: Deep venous thrombosis within the right lower extremity extending from the common femora l vein through the popliteal vein.
== END ==
LOC: RADUSWWP 12:00
PROVIDERS: ATTEND Family Medicine
DX: I82.431 Acute embolism and thrombosis of right popliteal vein (principal)

== ENCOUNTER → 2017-12-03 | Outpatient (CLI) | payer BC ==
--- NOTE | 2017-12-03 15:23 | US ---
EXAMINATION TYPE: US venous doppler duplex LE RT DATE OF EXAM: 12/03/2017 3:02 PM COMPARISON: US CLINICAL HISTORY: I82.A22 Deep vein thrombosis. Pt states right leg pain and swelling, previous DVT, currently not on blood thinners SIDE PERFORMED: Right TECHNIQUE: The lower extremity deep venous system is examined utilizing real time linear array sonog ara with graded compression, doppler sonography and color-flow sonography. VESSELS IMAGED: External Iliac Vein (EIV) Common Femoral Vein Deep Femoral Vein Greater Saphenous Vein * Femoral Vein Popliteal Vein Small Saphenous Vein * Proximal Calf Veins (* superficial vessels) Right Leg: Chronic non-occluding thrombus proximal femoral vein to pop veins/ Possible acute thrombu s within right groin at EIV and CFV level Results called to Jeff at Dr's office at time of exam IMPRESSION: 1. It is difficult to exclude acute thrombus with flapping component within the right groin at the ex ternal iliac vein/common femoral vein. Superimposed chronic DVT as noted.
== END | disposition home or self-care (01) ==
LOC: RADUSWWP 14:43
PROVIDERS: ATTEND Family Medicine
DX: I82.401 Acute embolism and thrombosis of unspecified deep veins of right lower extremity (principal); I82.A22 Chronic embolism and thrombosis of left axillary vein; Z88.0 Allergy status to penicillin

== ENCOUNTER 2019-01-16 10:23 | Emergency (ER) | payer BC ==
[2019-01-16 10:53] VITALS: RESP 18; TEMP 98.5
--- NOTE | 2019-01-16 11:32 | ED ---
Lower Extremity Injury HPI - General Chief Complaint: Extremity Injury, Lower Stated Complaint: RT LEG SWELLING, PAIN Time Seen by Provider: 01/16/19 10:53 Source: patient, RN notes reviewed Mode of arrival: ambulatory Limitations: no limitations - History of Present Illness Initial Comments: This a 58-year-old male presents emergency Department chief complaint right leg infection, wound. Patient states that he's had increase in swelling to his leg. Patient is concerned that he has a DVT. Patient does have a history as currently taken Xarelto 20 mg. Patient states that he had injury to the leg and which she was seen at another ER was placed on antibiotics but has not started them. Patient states he was seen in emergency department on 01/15/2016. Patient states the swelling in discoloration is worsen. He doesn't with a normally wears compression stockings when he is at work but has not been wearing them. Patient did work last night in which she noticed increasing swelling. - Related Data Home Medications Medication Instructions Recorded Confirmed Ergocalciferol [Vitamin D2 50,000 unit PO GRIFFIN 02/21/16 01/16/19 (DRISDOL)] Lisinopril [Zestril] 20 mg PO HS 02/21/16 01/16/19 Montelukast [Singulair] 10 mg PO HS 02/21/16 01/16/19 Ascorbic Acid [Vitamin C] 500 mg PO DAILY 05/13/17 01/16/19 Glucosam/Alonzo-Msm1/C/Michael/Bosw 2 tab PO DAILY 05/13/17 01/16/19 [Glucosamine-Chondroitin Tablet] Metaxalone [Skelaxin] 800 mg PO TID PRN 05/13/17 01/16/19 Ranitidine HCl [Zantac] 150 mg PO HS 05/13/17 01/16/19 Rivaroxaban [Xarelto] 20 mg PO DAILY 05/13/17 01/16/19 Topiramate [Topamax] 100 mg PO DAILY 05/13/17 01/16/19 Acetaminophen Tab [Tylenol Tab] 1,000 mg PO BID 01/16/19 01/16/19 DULoxetine HCL [Cymbalta] 60 mg PO BID 01/16/19 01/16/19 Furosemide [Lasix] 10 mg PO Q48H 01/16/19 01/16/19 Furosemide [Lasix] 20 mg PO Q48H 01/16/19 01/16/19 Gabapentin [Neurontin] 300 mg PO TID 01/16/19 01/16/19 Hydrochlorothiazide [Hydrodiuril] 25 mg PO DAILY 01/16/19 01/16/19 Turmeric Root Extract [Turmeric] 500 mg PO DAILY 01/16/19 01/16/19 Allergies Allergy/AdvReac Type Severity Reaction Status Date / Time Penicillins Allergy Rash/Hives Verified 01/16/19 11:53 Sulfa (Sulfonamide Allergy Rash/Hives Verified 01/16/19 11:53 Antibiotics) Review of Systems ROS Statement: Those systems with pertinent positive or pertinent negative responses have been documented in the HPI. ROS Other: All systems not noted in ROS Statement are negative. Past Medical History Past Medical History: GERD/Reflux, Hypertension Additional Past Medical History / Comment(s): Morbid obesity, environmental ALLERGIES, degenerative arthritis, hypertension. Has been evaluated by infectious disease in the past when he had a significant dermatophyte of the feet requiring antifungal therapy. Now well controlled History of Any Multi-Drug Resistant Organisms: MRSA Date of last positivie culture/infection: 2013(when at [facility]) MDRO Source:: rt foot 2nd toe Past Surgical History: Orthopedic Surgery, Tonsillectomy Additional Past Surgical History / Comment(s): LEFT KNEE REPLACEMENT, lt eye c ataract sx, rt shoulder sx d/t separation Past Anesthesia/Blood Transfusion Reactions: No Reported Reaction Past Psychological History: No Psychological Hx Reported Smoking Status: Never smoker Past Alcohol Use History: Occasional Past Drug Use History: None Reported - Past Family History Mother Family Medical History: Hypertension Father Family Medical History: Cancer, Diabetes Mellitus, Myocardial Infarction ([place]) Additional Family Medical History / Comment(s): stomach cancer, x4 mi's General Exam Limitations: no limitations General appearance: alert, in no apparent distress Head exam: Present: atraumatic, normocephalic, normal inspection Neck exam: Present: normal inspection. Absent: tenderness, meningismus, lymphadenopathy Respiratory exam: Present: normal lung sounds bilaterally. Absent: respiratory distress, wheezes, rales, rhonchi, stridor Cardiovascular Exam: Present: regular rate, normal rhythm, normal heart sounds. Absent: systolic murmur, diastolic murmur, rubs, gallop, clicks Extremities exam: Present: other (3 x 2 cm open superficial wound to the right medial distal tib-fib, neurovascular intact) Course Vital Signs 01/16/19 01/16/19 10:49 12:55 Temperature 98.5 F Pulse Rate 82 73 Respiratory 18 18 Rate Blood Pressure 139/80 109/61 O2 Sat by Pulse 97 97 Oximetry Medical Decision Making - Medical Decision Making 58-year-old male presents emergency department for concerns of due to the right leg. CHILD is negative for acute DVT. Patient does have a open wound to the medial aspect of his lower leg. Patient's lab work is unremarkable. Patient has facial infection no systemic infection. Patient will fill his prescription for Keflex as he was. He was given Rocephin in the emergency department. Return parameters were discussed. Patient's leg has improved in emergency department with elevation. - Lab Data Result diagrams: 01/16/19 12:00 01/16/19 12:00 Lab Results 01/16/19 01/16/19 01/16/19 Range/Units 12:00 12:00 12:00 WBC 8.3 (3.8-10.6) k/uL RBC 4.40 (4.30-5.90) m/uL Hgb 13.5 (13.0-17.5) gm/dL Hct 41.7 (39.0-53.0) % MCV 94.8 (80.0-100.0) fL MCH 30.7 (25.0-35.0) pg MCHC 32.4 (31.0-37.0) g/dL RDW 13.7 (11.5-15.5) % Plt Count 318 (150-450) k/uL Neutrophils % 61 % Lymphocytes % 23 % Monocytes % 7 % Eosinophils % 5 % Basophils % 1 % Neutrophils # 5.1 (1.3-7.7) k/uL Lymphocytes # 1.9 (1.0-4.8) k/uL Monocytes # 0.6 (0-1.0) k/uL Eosinophils # 0.5 (0-0.7) k/uL Basophils # 0.1 (0-0.2) k/uL Sodium 140 (137-145) mmol/L Potassium 4.0 (3.5-5.1) mmol/L Chloride 105 (98-107) mmol/L Carbon Dioxide 25 (22-30) mmol/L Anion Gap 10 mmol/L BUN 19 (9-20) mg/dL Creatinine 0.74 (0.66-1.25) mg/dL Est GFR (CKD-EPI)AfAm >90 (>60 ml/min/1.73 sqM) Est GFR (CKD-EPI)NonAf >90 (>60 ml/min/1.73 sqM) Glucose 99 (74-99) mg/dL Plasma Lactic Acid Jaskaran 1.2 (0.7-2.0) mmol/L Calcium 9.1 (8.4-10.2) mg/dL Disposition Clinical Impression: Wound of right leg, Leg edema, right Disposition: HOME SELF-CARE Condition: Stable Instructions (If sedation given, give patient instructions): Acute Wound Care (ED) Additional Instructions: Please return to the Emergency Department if symptoms worsen or any other concerns. Is patient prescribed a controlled substance at d/c from ED?: No Referrals: Diamond Farrar DO [Primary Care Provider] - 1-2 days Time of Disposition: 13:23
--- NOTE | 2019-01-16 12:38 | US ---
EXAMINATION TYPE: US venous doppler duplex LE RT DATE OF EXAM: 01/16/2019 12:19 PM COMPARISON: NONE CLINICAL HISTORY: Pain. Right leg swelling hx of DVT patient on blood thinners. SIDE PERFORMED: Right TECHNIQUE: The lower extremity deep venous system is examined utilizing real time linear array sonog ara with graded compression, doppler sonography and color-flow sonography. VESSELS IMAGED: External Iliac Vein (EIV) Common Femoral Vein Deep Femoral Vein Greater Saphenous Vein * Femoral Vein Popliteal Vein Partial compression of Femoral and Popliteal vein. No thrombus visualized on today's exam. IMPRESSION: 1. Limited exam due to difficulty with compression. This results in a limited exam. Grossly no venous thrombosis seen on color Doppler or grayscale images. Correlate clinically.
[2019-01-16 12:42] LABS: Basophils # (A) 0.1 k/uL (0-0.2); Basophils % (A) 1 %; Eosinophils # (A) 0.5 k/uL (0-0.7); Eosinophils % (A) 5 %; HCT 41.7 % (39.0-53.0); HGB 13.5 gm/dL (13.0-17.5); Lymphocytes # (A) 1.9 k/uL (1.0-4.8); Lymphocytes % (A) 23 %; MCH 30.7 pg (25.0-35.0); MCHC 32.4 g/dL (31.0-37.0); MCV 94.8 fL (80.0-100.0); Mean Platelet Volume 6.7; Monocytes # (A) 0.6 k/uL (0-1.0); Monocytes % (A) 7 %; Neutrophils # (A) 5.1 k/uL (1.3-7.7); Neutrophils % (A) 61 %; Platelet Count 318 k/uL (150-450); RDW 13.7 % (11.5-15.5); WBC 8.3 k/uL (3.8-10.6)
[2019-01-16 12:56] VITALS: BP 109/61; PULSE 73
[2019-01-16 13:07] LABS: African American GFR (CKD) >90 (>60 ml/min/1.73 sqM); Anion Gap 10 mmol/L; Blood Urea Nitrogen 19 mg/dL (9-20); Calcium 9.1 mg/dL (8.4-10.2); Carbon Dioxide 25 mmol/L (22-30); Chloride 105 mmol/L (98-107); Glucose 99 mg/dL (74-99); Sodium 140 mmol/L (137-145)
== END 2019-01-16 13:48 | disposition home or self-care (01) ==
LOC: EC 10:23
DX: S81.801A Unspecified open wound, right lower leg, initial encounter (principal); R60.0 Localized edema; K21.9 Gastro-esophageal reflux disease without esophagitis; I10 Essential (primary) hypertension; E66.01 Morbid (severe) obesity due to excess calories; Z68.42 Body mass index [BMI] 45.0-49.9, adult; Z86.718 Personal history of other venous thrombosis and embolism; Z86.14 Personal history of Methicillin resistant Staphylococcus aureus infection; Z79.01 Long term (current) use of anticoagulants; Z79.899 Other long term (current) drug therapy; Z88.0 Allergy status to penicillin; Z88.2 Allergy status to sulfonamides; Z96.652 Presence of left artificial knee joint
CPT/HCPCS: 36415; 80048; 83605; 85025; 93971; 99284; 96365; J0696

== ENCOUNTER → 2019-10-05 | Outpatient (CLI) | payer BC ==
--- NOTE | 2019-10-05 12:45 | US ---
LOWER EXTREMITY VENOUS INSUFFICIENCY CLINICAL HISTORY: i87.2 venous reflux. SIDE PERFORMED: Bilateral Comparison: Prior right lower extremity venous ultrasound January 16, 2019 1) Color flow is present and patency is documented in the following vessels. No DVT or SVT is noted . EIV Common Femoral Vein Deep Femoral Vein Femoral Vein Popliteal Vein Proximal Calf Veins Greater Saph Vein Upper Small Saph Vein 2) There is venous reflux noted at the following venous levels: RIGHT: EIV, CFV, GSV, FV, POP V. LEFT: mild in EIV,GSV, CFV, FEM V mid, dist IMPRESSION: No ultrasound evidence for acute DVT. Bilateral lower extremity venous reflux noted as do cumented above.
--- NOTE | 2019-10-06 10:13 | P.ARTDOP ---
Arterial Doppler LOWER EXTREMITY ARTERIAL DOPPLER: DATE OF SERVICE: 10/05/2019 Reason for study: Right ankle ulcer. Doppler waveforms: Multiphasic bilaterally throughout. Pulse volume recording: []. Pressure gradients: None. Ankle-brachial indices: Greater than 1 bilaterally. Toe brachial indices: 1.05 on the right, 0.83 on the left Impression: Normal study. Irregular rhythm suggest A. fib.
== END | disposition home or self-care (01) ==
LOC: RADUSWWP 09:37
PROVIDERS: ATTEND Family Medicine
DX: I87.2 Venous insufficiency (chronic) (peripheral) (principal); I87.311 Chronic venous hypertension (idiopathic) with ulcer of right lower extremity; I89.0 Lymphedema, not elsewhere classified; Z79.01 Long term (current) use of anticoagulants; Z86.711 Personal history of pulmonary embolism
CPT/HCPCS: 93922; 93970

== ENCOUNTER → 2021-07-24 | Outpatient (CLI) | payer BC ==
--- NOTE | 2021-07-25 08:29 | P.ARTDOP ---
Arterial Doppler LOWER EXTREMITY ARTERIAL DOPPLER: DATE OF SERVICE: 07/24/2021 Reason for study: Right ankle ulcer. Doppler waveforms: Multiphasic bilaterally throughout. Pulse volume recording: []. Pressure gradients: None. Ankle-brachial indices: Greater than 1 bilaterally. Toe brachial indices: 0.91 on the right, 1.01 on the left Impression: Normal study.
== END | disposition home or self-care (01) ==
LOC: RADUSWWP 09:40
PROVIDERS: ATTEND Family Medicine
DX: L97.315 Non-pressure chronic ulcer of right ankle with muscle involvement without evidence of necrosis (principal); L97.321 Non-pressure chronic ulcer of left ankle limited to breakdown of skin; I87.313 Chronic venous hypertension (idiopathic) with ulcer of bilateral lower extremity
CPT/HCPCS: 93922

== ENCOUNTER → 2022-11-14 | Outpatient (CLI) | payer BC ==
[~2022-11-14] MED LIST: REGADENOSON 0.4 MG/5 ML SYRINGE IV PRN
--- NOTE | 2022-11-14 12:20 | CA ---
Lexiscan Nuclear Stress Test Report Name: Hung Glover Exam Date: 11/14/2022 09:55 Exam Location: [place] Stress Ht (in): 71 Wt (lb): 350 BSA: 2.68 Ordering Phys: Dinesh Palafox MD Referring Phys: DINESH PALAFOX,, Technologist: Eric Frost Age: 62 Gender: M : 1960 Procedure CPT: Indications: I20.0 coronary disease ICD-10 Codes: Patient History: Medications: Meds past 24 hrs: Pretest Chest Pain: STRESS TEST Lexiscan Protocol Exercise Duration (min:sec): 02:[address] Depressions (mm): Angina Score: Burns Score: Resting HR (bpm): 62 Peak HR (bpm): 92 Resting BP (mmHg): 125 / 51 Peak BP (mmHg): 135 / 85 MPHR: 158 Target HR: 134 % MPHR: 58 METS: 1.0 Total Dose: Peak Dose: Atropine: Double Product: 10911 BP Response: Stress Termination: PROTOCOL COMPLETE Stress Symptoms: NO SYMPTOMS Stress Summary: ECG ANALYSIS Resting ECG: Sinus rhythm. Normal conduction. Ventricular premature contraction. Normal repolarization. Stress ECG: No ECG changes from baseline with Lexiscan infusion. Ventricular premature contraction. CONCLUSIONS No ECG evidence of ischemia with Lexiscan infusion. Nuclear test results to follow. Dr. Tiffanie Austin MD (Electronically Signed) Final Date: 14 Nov 2022 12:20
--- NOTE | 2022-11-14 12:32 | NM ---
EXAMINATION TYPE: NM stress lexiscan cardiolite DATE OF EXAM: 11/14/2022 COMPARISON: NONE CLINICAL INDICATION: Male, 62 years old with history of I20.0 coronary syndrome; TECHNIQUE: After the intravenous administration of 9.7 mCi Tc 99m Sestamibi - Cardiolite resting SPE CT images acquired 45 minutes post injection. The patient received 0.4mg Lexiscan, 26.8 mCi Tc 99m Sestamibi - Stress images obtained [address] injection FINDINGS: Review of stress and rest SPECT images demonstrates no distinct perfusion abnormality. Gated analysi s shows normal wall motion with an estimated left ventricular ejection fraction of 53 %. IMPRESSION: No scintigraphic evidence for reversible ischemia.
== END | disposition home or self-care (01) ==
LOC: RADNMMAIN 08:15
PROVIDERS: ATTEND Family Medicine
DX: I20.0 Unstable angina (principal)
CPT/HCPCS: 93017; 78452; A9500; J2785